=== PATIENT | female | born 1990 | race Caucasian/White ===

== ENCOUNTER → 2020-05-10 15:30 | Outpatient (CLI) | payer OTHER, SELFPAY ==
[2020-05-10 16:09] LABS: Add Manual Diff / Slide Review NO; Basophils Absolute Auto 0 /uL (0-100); Basophils Percent Auto 0.4 % (0-2); Eosinophils Absolute Auto 300 /uL (0-450); Eosinophils Percent Auto 2.4 % (2-4); Hematocrit 35.4 % (36-46); Hemoglobin 12.5 g/dL (12.0-16.0); Lymphocytes Absolute Auto 2000 /uL (1100-4500); Lymphocytes Percent Auto 18.8 % (25-40); Mean Corpuscular HGB Conc 35.4 % (30-36); Mean Corpuscular Hemoglobin 31.2 PG (26-34); Mean Corpuscular Volume 88.2 fL (80-100); Monocytes Absolute Auto 600 /uL (0-900); Monocytes Percent Auto 5.3 % (3-14); Neutrophils Absolute Auto 7900 /uL (1500-7000); Neutrophils Percent Auto 73.1 % (50-75); Platelet Count 304 X10^3/uL (150-400); Red Blood Cell Count 4.01 X10^6/uL (4.0-5.2); Red Cell Distribution Width 12.9 % (11.6-14.8); White Blood Cell Count 10.8 X10^3/uL (4.5-11.0)
[2020-05-10 17:24] LABS: Hepatitis B Surface Antigen NEGATIVE s/c (NEGATIVE)
[2020-05-10 17:39] LABS: HIV 1 & 2 Ab/Ag 4th Gen Combo NEGATIVE (NEGATIVE); Hep C Virus Ab w/Reflex Quant NEGATIVE s/c (NEGATIVE)
[2020-05-10 18:36] LABS: Appearance Urine UA CLEAR; Bilirubin Urine UA NEGATIVE (NEGATIVE); Color Urine UA YELLOW; Glucose Urine UA NEGATIVE (Negative); Ketones Urine UA NEGATIVE (NEGATIVE); Leukocyte Esterase Urine UA TRACE (NEGATIVE); Nitrite Urine UA NEGATIVE (Negative); Occult Blood Urine UA NEGATIVE (Negative); Protein Urine UA NEGATIVE (Negative); Specific Gravity Urine UA <=1.005 (1.000-1.035); Urobilinogen Urine UA 0.2 E.U./dL (0.2)
[2020-05-10 18:41] LABS: Bacteria Urine None Seen; RBC Urine None Seen (0-5/HPF)
[2020-05-10 18:44] LABS: Squamous Epithelial Cell Urine 10-30 /HPF (0-5/HPF); WBC Urine 5-10/HPF (0-5/HPF)
[2020-05-10 18:45] LABS: Amorphous Sediment Urine 2+
[2020-05-11 04:36] LABS: RPR Screen Non Reactive (Non Reactive)
[2020-05-11 08:41] LABS: Varicella IgG Antibody 3065 index (Immune >165)
== END ==
PROVIDERS: PCP Family Medicine; Referring Provider Family Medicine; Visit Provider Family Medicine
DX: Z34.01 Encounter for supervision of normal first pregnancy, first trimester (principal)
CPT/HCPCS: 36415; 80055; 81003; 81015; 86787; 86803; 86850; 86900; 86901; 87077; 87086; 87389

== ENCOUNTER → 2020-05-14 16:09 | Outpatient (CLI) | payer OTHER, SELFPAY ==
[2020-05-14 16:38] LABS: Appearance Urine UA SL CLOUDY; Bilirubin Urine UA NEGATIVE (NEGATIVE); Color Urine UA YELLOW; Glucose Urine UA NEGATIVE (Negative); Ketones Urine UA NEGATIVE (NEGATIVE); Leukocyte Esterase Urine UA 1+ (NEGATIVE); Nitrite Urine UA NEGATIVE (Negative); Occult Blood Urine UA NEGATIVE (Negative); Protein Urine UA NEGATIVE (Negative); Urobilinogen Urine UA 0.2 E.U./dL (0.2)
[2020-05-14 16:39] LABS: pH Urine UA 6.5 (4.5-8.0)
[2020-05-14 16:45] LABS: Bacteria Urine Moderate (10-30); Culture Indicated Urine Specimen Cultured; RBC Urine 0-1/HPF (0-5/HPF); Squamous Epithelial Cell Urine 1-5 /HPF (0-5/HPF); WBC Urine 5-10/HPF (0-5/HPF)
== END ==
PROVIDERS: PCP Family Medicine; Referring Provider Family Medicine; Visit Provider Family Medicine
DX: A49.9 Bacterial infection, unspecified (principal)
CPT/HCPCS: 81001; 87086

== ENCOUNTER → 2020-06-22 11:00 | Outpatient (CLI) | payer OTHER, SELFPAY ==
[2020-06-22 13:18] LABS: GTT (PREG) 1 Hour PP 50gm Dose 100 mg/dL (76-139)
== END ==
PROVIDERS: PCP Family Medicine; Referring Provider Family Medicine; Visit Provider Family Medicine
DX: O09.92 Supervision of high risk pregnancy, unspecified, second trimester (principal); O30.009 Twin pregnancy, unspecified number of placenta and unspecified number of amniotic sacs, unspecified trimester; R63.1 Polydipsia
CPT/HCPCS: 36415; 82950

== ENCOUNTER → 2020-07-20 14:13 | Outpatient (CLI) | payer OTHER, SELFPAY | PROVIDERS: PCP Family Medicine; Referring Provider Family Medicine; Visit Provider Family Medicine | DX: O30.009 Twin pregnancy, unspecified number of placenta and unspecified number of amniotic sacs, unspecified trimester (principal) | CPT/HCPCS: 36415; 81420 ==

== ENCOUNTER → 2020-09-03 10:38 | Outpatient (CLI) | payer OTHER, SELFPAY ==
[2020-09-03 13:30] LABS: GTT (PREG) 1 Hour PP 50gm Dose 107 mg/dL (76-139)
== END ==
PROVIDERS: PCP Family Medicine; Referring Provider Family Medicine; Visit Provider Family Medicine
DX: O30.009 Twin pregnancy, unspecified number of placenta and unspecified number of amniotic sacs, unspecified trimester (principal); Z3A.19 19 weeks gestation of pregnancy
CPT/HCPCS: 36415; 82950

== ENCOUNTER → 2020-09-20 09:57 | Outpatient (CLI) | payer OTHER, SELFPAY ==
[2020-09-20 10:24] LABS: COVID19 -Nasal RAPID Negative (Negative)
== END ==
PROVIDERS: PCP Family Medicine; Visit Provider Nurse Practitioner Family
DX: Z20.828 Contact with and (suspected) exposure to other viral communicable diseases (principal)
CPT/HCPCS: 87635

== ENCOUNTER 2020-09-20 12:28 | Outpatient (CLI) | payer OTHER, SELFPAY ==
--- NOTE | 2020-09-20 13:20 | PM.OBTRLD ---
Visit Information Visit Information Date of evaluation: 09/20/20 Reason for Evaluation: Yes non-stress test Comments/Additional reasons for admission: Patient sent to the center for abdominal discomfort. Sore throat runny nose congestion tested positive a few weeks ago to COVID. Patient's COVID test is negative. Patient evaluation and center showed no contractions which she was concerned about. heart tones of fetus A and fetus B looked normal and reactive. [facility] Medical History Anxiety (~2017) Broken hip (~2005) Chicken pox (~1995) Fractures On Accutane therapy Ovarian cyst (~2008) Pelvic fracture (~2008) Surgical History Anesthesia [place] teeth removed (~2010) Family History Father Hyperlipidemia Anxiety Mother Hypertension Stroke Migraine Grandfather Lung cancer Grandmother Diabetes mellitus Heart disease Grandmother Diabetes mellitus Grandfather No known health problems Family/Other Depression Suicide Family/Other Bipolar 1 disorder Family/Other Diabetes type 1, controlled Brother No known health problems Sister No known health problems Migraine Dense breast tissue on mammogram Social History marital status: household members: spouse lives independently: Yes pets and animals: Yes (X 1 Dog) education level: college 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 Sent the center for abdominal contractions discomfort pain. COVID test negative. Vital signs are stable. Baby a baby B heart be looks good. No contractions reassurance follow-up on for appointment.
== END 2020-09-20 13:35 | disposition home or self-care (01) ==
LOC: LABOR 13:10 → OB 09-21 09:08
PROVIDERS: PCP Family Medicine; Referring Provider Family Medicine; Visit Provider Family Medicine
DX: O30.043 Twin pregnancy, dichorionic/diamniotic, third trimester (principal); R10.84 Generalized abdominal pain; J02.9 Acute pharyngitis, unspecified; Z20.828 Contact with and (suspected) exposure to other viral communicable diseases; Z3A.28 28 weeks gestation of pregnancy
CPT/HCPCS: 59025; 87635; G0378; G0379

== ENCOUNTER → 2020-09-23 10:15 | Outpatient (CLI) | payer OTHER, SELFPAY ==
[2020-09-23 10:33] LABS: Hemoglobin 11.2 g/dL (12.0-16.0)
== END ==
PROVIDERS: PCP Family Medicine; Referring Provider Family Medicine; Visit Provider Family Medicine
DX: Z34.03 Encounter for supervision of normal first pregnancy, third trimester (principal); Z3A.29 29 weeks gestation of pregnancy
CPT/HCPCS: 36415; 85014; 85018; 86850

== ENCOUNTER 2020-10-16 20:36 | Outpatient (CLI) | payer OTHER, SELFPAY ==
[2020-10-16 20:48] LABS: RBC Urine None Seen (0-5/HPF)
[2020-10-16 20:49] LABS: Appearance Urine UA CLEAR; Bilirubin Urine UA NEGATIVE (NEGATIVE); Color Urine UA YELLOW; Glucose Urine UA NEGATIVE (Negative); Ketones Urine UA NEGATIVE (NEGATIVE); Leukocyte Esterase Urine UA 3+ (NEGATIVE); Nitrite Urine UA NEGATIVE (Negative); Occult Blood Urine UA NEGATIVE (Negative); Protein Urine UA NEGATIVE (Negative); Urobilinogen Urine UA 0.2 E.U./dL (0.2)
[2020-10-16 20:52] LABS: pH Urine UA 7.5 (4.5-8.0)
[2020-10-16 21:05] LABS: Bacteria Urine Many (>30); Squamous Epithelial Cell Urine 1-5 /HPF (0-5/HPF); WBC Urine 10-30/HPF (0-5/HPF)
[2020-10-16 21:06] LABS: Culture Indicated Urine Specimen Cultured
[2020-10-16 21:08] LABS: COVID19 -Nasal RAPID Negative (Negative)
[2020-10-16 21:21] LABS: Add Manual Diff / Slide Review NO; Basophils Absolute Auto 0 /uL (0-100); Basophils Percent Auto 0.3 % (0-2); Eosinophils Absolute Auto 200 /uL (0-450); Eosinophils Percent Auto 1.8 % (2-4); Hematocrit 30.8 % (36-46); Hemoglobin 10.7 g/dL (12.0-16.0); Lymphocytes Absolute Auto 2000 /uL (1100-4500); Lymphocytes Percent Auto 20.3 % (25-40); Mean Corpuscular HGB Conc 34.5 % (30-36); Mean Corpuscular Hemoglobin 30.3 PG (26-34); Mean Corpuscular Volume 87.7 fL (80-100); Monocytes Absolute Auto 1000 /uL (0-900); Monocytes Percent Auto 9.9 % (3-14); Neutrophils Absolute Auto 6800 /uL (1500-7000); Neutrophils Percent Auto 67.7 % (50-75); Platelet Count 286 X10^3/uL (150-400); Red Blood Cell Count 3.51 X10^6/uL (4.0-5.2); Red Cell Distribution Width 12.6 % (11.6-14.8); White Blood Cell Count 10.1 X10^3/uL (4.5-11.0)
[2020-10-16 21:30] LABS: Aspartate Aminotransferase 27 IU/L (14-36); BUN Creatinine Ratio 8.9 (6-22); Blood Urea Nitrogen 4 mg/dL (7-17); Estimated Glomerular Filt Rate > 60.0 mL/min (>60); Uric Acid 3.2 mg/dL (2.5-6.2)
--- NOTE | 2020-10-16 21:38 | P.TNLD_ITS ---
Visit Information Visit Information Date of evaluation: 10/16/20 Primary OB Provider: Jessica Patel On-call OB Provider: Teresa Angel Reason for Evaluation: Yes other Comments/Additional reasons for admission: dizziness Vital Signs Vital Signs: BP 120/77, P76, T 35.9 PFSH Medical History Anxiety (~2017) Broken hip (~2005) Chicken pox (~1995) Fractures On Accutane therapy Ovarian cyst (~2008) Pelvic fracture (~2008) Surgical History Anesthesia [place] teeth removed (~2010) Family History Father Hyperlipidemia Anxiety Mother Hypertension Stroke Migraine Grandfather Lung cancer Grandmother Diabetes mellitus Heart disease Grandmother Diabetes mellitus Grandfather No known health problems Family/Other Depression Suicide Family/Other Bipolar 1 disorder Family/Other Diabetes type 1, controlled Brother No known health problems Sister No known health problems Migraine Dense breast tissue on mammogram Social History marital status: household members: spouse lives independently: Yes pets and animals: Yes (X 1 Dog) education level: college 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 GFM, no headache, scotomata. No fevers. No significant SOB, she does c/o diarrhea. Objective Labs Result Diagrams: 10/16/20 21:12 10/16/20 21:12 Labs: Laboratory Results - last 24 hr 10/16/20 10/16/20 10/16/20 20:30 20:30 21:12 WBC 10.1 RBC 3.51 L Hgb 10.7 L Hct 30.8 L MCV 87.7 MCH 30.3 MCHC 34.5 RDW 12.6 Plt Count 286 Neut % (Auto) 67.7 Lymph % (Auto) 20.3 L [place] % (Auto) 9.9 Eos % (Auto) 1.8 L Baso % (Auto) 0.3 Neut # (Auto) 6800 Lymph # (Auto) 2000 [place] # (Auto) 1000 H Eos # (Auto) 200 Baso # (Auto) 0 BUN Creatinine Estimated GFR BUN/Creatinine Ratio Uric Acid AST Urine Color Yellow Urine Appearance Clear Urine pH 7.5 Ur Specific [place] 1.010 Urine Protein Negative Urine Glucose (UA) Negative Urine Ketones Negative Urine Occult Blood Negative Urine Nitrate Negative Urine Bilirubin Negative Urine Urobilinogen 0.2 Ur Leukocyte Esterase 3+ H Urine RBC None seen Urine WBC 10-30/hpf H Ur Squamous Epith Cells 1-5 /hpf Urine Bacteria Many (>30) H Ur Culture Indicated? Specimen cultured SARS-CoV-2 (PCR) Negative 10/16/20 21:12 WBC RBC Hgb Hct MCV MCH MCHC RDW Plt Count Neut % (Auto) Lymph % (Auto) [place] % (Auto) Eos % (Auto) Baso % (Auto) Neut # (Auto) Lymph # (Auto) [place] # (Auto) Eos # (Auto) Baso # (Auto) BUN 4 L Creatinine 0.45 L Estimated GFR > 60.0 BUN/Creatinine Ratio 8.9 Uric Acid 3.2 AST 27 Urine Color Urine Appearance Urine pH Ur Specific [place] Urine Protein Urine Glucose (UA) Urine Ketones Urine Occult Blood Urine Nitrate Urine Bilirubin Urine Urobilinogen Ur Leukocyte Esterase Urine RBC Urine WBC Ur Squamous Epith Cells Urine Bacteria Ur Culture Indicated? SARS-CoV-2 (PCR) Evaluation Evaluation Baseline heart rate: 140 (twin B 150) Variability: Moderate (11-25) (both) monitor accelerations: Present (both) monitor decelerations: Absent (both) Contraction Frequency (minutes): 0 Category of Tracing: Reactive Status: Category l Laboratory results: Laboratory Tests 10/16/20 10/16/20 10/16/20 20:30 20:30 21:12 WBC 10.1 RBC 3.51 L Hgb 10.7 L Hct 30.8 L MCV 87.7 MCH 30.3 MCHC 34.5 RDW 12.6 Plt Count 286 Neut % (Auto) 67.7 Lymph % (Auto) 20.3 L [place] % (Auto) 9.9 Eos % (Auto) 1.8 L Baso % (Auto) 0.3 Neut # (Auto) 6800 Lymph # (Auto) 2000 [place] # (Auto) 1000 H Eos # (Auto) 200 Baso # (Auto) 0 BUN Creatinine Estimated GFR BUN/Creatinine Ratio Uric Acid AST Urine Color Yellow Urine Appearance Clear Urine pH 7.5 Ur Specific [place] 1.010 Urine Protein Negative Urine Glucose (UA) Negative Urine Ketones Negative Urine Occult Blood Negative Urine Nitrate Negative Urine Bilirubin Negative Urine Urobilinogen 0.2 Ur Leukocyte Esterase 3+ H Urine RBC None seen Urine WBC 10-30/hpf H Ur Squamous Epith Cells 1-5 /hpf Urine Bacteria Many (>30) H Ur Culture Indicated? Specimen cultured SARS-CoV-2 (PCR) Negative 10/16/20 21:12 WBC RBC Hgb Hct MCV MCH MCHC RDW Plt Count Neut % (Auto) Lymph % (Auto) [place] % (Auto) Eos % (Auto) Baso % (Auto) Neut # (Auto) Lymph # (Auto) [place] # (Auto) Eos # (Auto) Baso # (Auto) BUN 4 L Creatinine 0.45 L Estimated GFR > 60.0 BUN/Creatinine Ratio 8.9 Uric Acid 3.2 AST 27 Urine Color Urine Appearance Urine pH Ur Specific [place] Urine Protein Urine Glucose (UA) Urine Ketones Urine Occult Blood Urine Nitrate Urine Bilirubin Urine Urobilinogen Ur Leukocyte Esterase Urine RBC Urine WBC Ur Squamous Epith Cells Urine Bacteria Ur Culture Indicated? SARS-CoV-2 (PCR) Diagnosis, Plan/Disposition Final Diagnosis (1) Dizziness of unknown etiology: Status: Acute (2) 33 weeks gestation of : Status: Acute (3) Twin : Status: Acute Plan/Disposition Plan: Some anemia, urine culture pending but asymptomatic so will wait for culture, negative Covid, negative PIH labs. Unclear etiology of dizziness. Pt to push fluids, keep appointment with Dr. Patel OB Disposition: home
== END 2020-10-16 21:45 | disposition home or self-care (01) ==
LOC: OB 10-19 07:34
PROVIDERS: PCP Family Medicine; Referring Provider Specialist; Visit Provider Specialist
DX: O30.043 Twin pregnancy, dichorionic/diamniotic, third trimester (principal); R42 Dizziness and giddiness; R19.7 Diarrhea, unspecified; Z3A.32 32 weeks gestation of pregnancy; Z20.822 Contact with and (suspected) exposure to COVID-19
CPT/HCPCS: 36415; 59025; 81001; 84450; 84550; 85025; 87086; 87635; C9803; G0378; G0379

== ENCOUNTER 2020-10-20 12:00 | Outpatient (RCR) | payer OTHER, SELFPAY ==
--- NOTE | 2020-05-18 18:04 | PT.OIE ---
Current Diagnoses Encounter for supervision of normal , unspecified, unspecified trimester (05/13/20) Personal history of (healed) traumatic fracture (05/13/20) Past Medical History (Last Updated 05/05/20 @ 12:04 by Myra Malagon RN) Anxiety (Chronic ~2017) Broken hip (Resolved ~2005) Chicken pox (Resolved ~1995) Fractures (Resolved) On Accutane therapy (Resolved) Ovarian cyst (Resolved ~2008) Pelvic fracture (Resolved ~2008) Past Surgical History (Last Updated 05/05/20 @ 11:51 by Myra Malagon RN) Anesthesia (Resolved) Slovan teeth removed (Resolved ~2010) Visit Care Team Role Provider Type Pedrito Narvaez DO Primary Care Provider Non-Staff Specialty: [facility] Address: [address] [place] [address], [phone] Email: Jessica Patel MD Attending Provider Physician Referring Provider Specialty: [facility] Address: [address] [place] [address], [id number] Email: [email or web address] Physical Therapy Initial Evaluation PT-OP-A Visit Information Start: 05/13/20 12:52 Freq: Status: Active Protocol: Document 05/13/20 17:31 [facility] (Rec: 05/13/20 17:32 [facility] [id number]) Out-Patient Physical Therapy Visit Information Visit Information Visit Type Initial Evaluation Visit Start Time 15:15 Visit Stop Time 16:00 Total Visit Minutes 45 Visit Number 1 Evaluation Information Evaluation Date 05/13/20 PT-OP-B Current Condition Start: 05/13/20 12:52 Freq: Status: Active Protocol: Document 05/13/20 15:17 [facility] (Rec: 05/13/20 15:25 [facility] [id number]) Current Condition History of Current Condition Onset Date 15 years old History of Current Condition Diana reports her symptoms began at 15 years old 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 At 19 years old she was in college running track, she was having pain in the inner thigh pelvis region. She began having so much pain with running she would limp. MRI showed a fracture in her right side pelvis. Since the hip fracture she has had stiffness. She is now with twins and is noticing that both hips are starting to hurt and she is experiencing pain into her gluteal region. She will be 10 weeks on Sunday. Diana reports she is walking 2-3 times per week for exercise and notes some increase in tightness in her back with walking now. Her pain is rated 2/10 but she really wants to do PT as a prevention for increased pain during her . Treatment Goals Patient/Caregiver Goals pt's goals include preventing pain and instability with her and learning stretching Current Functional Impairments (Reported) Functional Limitations- ADL's Pt is perfoming all usual ADL' s PT-OP-C Subjective Start: 05/13/20 12:52 Freq: Status: Active Protocol: Document 05/13/20 15:15 [facility] (Rec: 05/18/20 17:31 [facility] [id number]) OP-PT Pain Assessment Pain Assessment Grid Paper Pain Assessment Grid Completed Yes Location low back and hips Intensity 2 Scale Used Numeric (0 - 10) PT-OP-J Posture/Palpation/Skin Start: 05/13/20 12:52 Freq: Status: Active Protocol: Document 05/13/20 15:15 [facility] (Rec: 05/18/20 08:54 [facility] [id number]) Posture Evaluation Comments Posture Comments increased lordosis in standing with visable hypertrophy of the lumbar paraspinals, pelvis anteriorly rotated bilaterally Palpation Assessment Location ASIS B Palpation Location ASIS BILATERALLY Palpation Findings Soft Tissue Tightness, Tenderness Palpation Details tenderness R>L ASIS and the quadriceps attachment proximally, tightness in the quadriceps muscle PT-OP-K Range of Motion Start: 05/13/20 12:52 Freq: Status: Active Protocol: Document 05/13/20 15:15 [facility] (Rec: 05/18/20 08:54 [facility] [id number]) Lumbar Spine Range of Motion Lumbar Spine Active Testing Position Standing Flexion 40 Lateral Flexion Left 10 Lateral Flexion Right 10 ROM Limitations Soft Tissue Tightness,Pain Comments lumbar spine ROM limited into flexion at 40 degrees Hip Goniometric Range of Motion Hip Right Testing Position Supine Straight Leg Raise 45 Extension 5 Internal Rotation 10 Hip ROM Limitations Hip ROM Limitations Soft Tissue Tightness Comments iliospoas tightness on the right, + juliano test position on the right, limited hip extension on the right vs the left, pain with hip IR on the right. PT-OP-M Strength Start: 05/13/20 12:52 Freq: Status: Active Protocol: Document 05/18/20 17:31 [facility] (Rec: 05/18/20 17:33 [facility] [id number]) Trunk Strength Trunk Manual Muscle Testing Core Stabilization + ASLR test on the right with SI joint on the left unlocking , decreased ability to contract the Transverse abdominals and pelvic floor with external pelvic floor assessment PT-OP-Q Treatments Start: 05/13/20 12:52 Freq: Status: Active Protocol: Document 05/13/20 17:32 [facility] (Rec: 05/13/20 17:34 [facility] [id number]) Therapeutic Exercises Sidelying Exercises pelvic floor activation Sidelying Exercise Name pelvic floor activation Comments pt to work up to 10 second hold time and 10 reps Other Exercises 1 Other Exercise Name standing warrior 1 Comments for stretching out the hip flexor quadruped TA activation Other Exercise Name quadruped TA activation Reps/Minutes x 10 quadruped sidebend Other Exercise Name quadruped sidebned quadruped cat cow Other Exercise Name quadruped cat/cow Reps/Minutes x 10 reps PT-OP-T Assessment and Plan Start: 05/13/20 12:52 Freq: Status: Active Protocol: Document 05/13/20 15:15 [facility] (Rec: 05/18/20 17:36 [facility] [id number]) Physical Therapy Assessment Rehab Potential Rehabilitation Potential Excellent Evaluation Complexity Number of Personal Factors/Comorbidities 0 Number of Body Systems Impaired 1-2 Clinical Presentation at Evaluation Stable Impairments Impairments Activity Tolerance,Pain,ROM, Soft Tissue Mobility,Strength Goals Four Impairment Decreased strength of the Transverse abdominals and pelvic floor Short Term Goal (STG) Diana is able to sustain a pelvic floor and transverse abdominal contraction for 10 second hold in sidelying. STG Duration 5 weeks Three Impairment Tightness in the lumbar paraspinals with a increase in lumbar lordisis Administration Clerk Goal (LTG) Diana is able to improve her lumbar flexion and decrease the amount of lordosis she goes into with her with specific exercises and manual therapy techniques to reduce anterior pelvic tilt. LTG Duration 8 weeks + Two Impairment SI instability with and history of a pelvic fracture in 2008 Short Term Goal (STG) Diana is educated on both Transverse abdominal stabilization and pelvic floor stabilization to improve support to her SI and pelvis during pregnacy STG Duration 6 weeks One Impairment Low back pain rated 2/10 Short Term Goal (STG) Diana is educated in stretches exercises for her low back that she can do throughout her Administration Clerk Goal (LTG) Diana is able to continue walking 2-3 miles for exercise during her LTG Duration 8 weeks + Assessment Summary Assessment Diana is a 30 year old female 10 weeks with twins. She has a history of a hip fracture in 2005 and a pelvic fracture in 2008 from track injuries. She would like to begin PT as she can feel some tigntness in her low back and hips already with her and she wants to prevent undue strain on her pelvis. At this point in time her pain is rated 2/10. With examination today she is standing with a increase in her lumbar lordosis with shortening of her lumbar paraspinal muscles. She has iliopsoas tightness right greater than left and is tender to palpation at the ASIS bilaterally. Her SI joint does unlock on the left side with right Active straight leg raise test. It is very difficult for Diana to activate her transverse abdominal muscles and pelvic floor which was palpated externally today. Diana has decreased hip IR and hip extension on the right. Treatment will focus on lengthening the shortened paraspinal muscles with lumbar stretches and manual soft tissue techniques. She will be given stabilization exercises for the transverse abdominal muscles and pelvic floor for improved support of her SI joint during . She may also benefit from a SI belt during her for increased support. We will also include hip stretches to decrease the anterior tilt of her pelvis. Body mechanics training and postural modifications will also be made. Diana is a good candidate for PT. Physical Therapy Plan Frequency and Duration Frequency of Treatment 1x/Week Duration of Treatment 8 Plan of Care Start Date 05/13/20 Plan of Care End Date 07/08/20 Therapeutic Interventions Therapeutic Interventions Home Exercise Program,Manual Therapy,Neuromuscular Re- education,Patient/Caregiver Education,Self-Care/Home Management,Soft Tissue Mobilization,Therapeutic Exercises Next Visit Focus/Plan Next Note Type Treatment Note Next Visit Plan Review exercises given at today's treatment including TA and pelvic floor isolation, lumbar and iliopsoas stretches , manual hip flexor release, STM for the shortened lumbar paraspinal muscles.
--- NOTE | 2020-05-18 18:06 | PT.OPPOC ---
Physical, Occupational & Speech Therapy At [facility] Current Diagnoses Encounter for supervision of normal , unspecified, unspecified trimester (05/13/20) Personal history of (healed) traumatic fracture (05/13/20) Visit Care Team Role Provider Type Pedrito Narvaez DO Primary Care Provider Non-Staff Specialty: Family Practice Address: [address] [place] [address], [phone] Email: Jessica Patel MD Attending Provider Physician Referring Provider Specialty: Family Practice Address: [address] [place] [address], [facility], [place], [address] Email: [email or web address] Plan Of Care PT-OP-T Assessment and Plan Start: 05/13/20 12:52 Freq: Status: Active Protocol: Document 05/13/20 15:15 [facility] (Rec: 05/18/20 17:36 [facility] [id number]) Physical Therapy Assessment Rehab Potential Rehabilitation Potential Excellent Evaluation Complexity Number of Personal Factors/Comorbidities 0 Number of Body Systems Impaired 1-2 Clinical Presentation at Evaluation Stable Impairments Impairments Activity Tolerance,Pain,ROM, Soft Tissue Mobility,Strength Goals Four Impairment Decreased strength of the Transverse abdominals and pelvic floor Short Term Goal (STG) Diana is able to sustain a pelvic floor and transverse abdominal contraction for 10 second hold in sidelying. STG Duration 5 weeks Three Impairment Tightness in the lumbar paraspinals with a increase in lumbar lordosis Funeral Location Manager Goal (LTG) Diana is able to improve her lumbar flexion and decrease the amount of lordosis she goes into with her with specific exercises and manual therapy techniques to reduce anterior pelvic tilt. LTG Duration 8 weeks + Two Impairment SI instability with and history of a pelvic fracture in 2008 Short Term Goal (STG) Diana is educated on both Transverse abdominal stabilization and pelvic floor stabilization to improve support to her SI and pelvis during STG Duration 6 weeks One Impairment Low back pain rated 2/10 Short Term Goal (STG) Diana is educated in stretches exercises for her low back that she can do throughout her [facility] Goal (LTG) Diana is able to continue walking 2-3 miles for exercise during her LTG Duration 8 weeks + Assessment Summary Assessment Diana is a 30 year old female 10 weeks with twins. She has a history of a hip fracture in 2005 and a pelvic fracture in 2008 from track injuries. She would like to begin PT as she can feel some tightness in her low back and hips already with her and she wants to prevent undue strain on her pelvis. At this point in time her pain is rated 2/10. With examination today she is standing with a increase in her lumbar lordosis with shortening of her lumbar paraspinal muscles. She has iliopsoas tightness right greater than left and is tender to palpation at the ASIS bilaterally. Her SI joint does unlock on the left side with right Active straight leg raise test. It is very difficult for Diana to activate her transverse abdominal muscles and pelvic floor which was palpated externally today. Diana has decreased hip IR and hip extension on the right. Treatment will focus on lengthening the shortened paraspinal muscles with lumbar stretches and manual soft tissue techniques. She will be given stabilization exercises for the transverse abdominal muscles and pelvic floor for improved support of her SI joint during . She may also benefit from a SI belt during her for increased support. We will also include hip stretches to decrease the anterior tilt of her pelvis. Body mechanics training and postural modifications will also be made. Diana is a good candidate for PT. Physical Therapy Plan Frequency and Duration Frequency of Treatment 1x/Week Duration of Treatment 8 Plan of Care Start Date 05/13/20 Plan of Care End Date 07/08/20 Therapeutic Interventions Therapeutic Interventions Home Exercise Program,Manual Therapy,Neuromuscular Re- education,Patient/Caregiver Education,Self-Care/Home Management,Soft Tissue Mobilization,Therapeutic Exercises Next Visit Focus/Plan Next Note Type Treatment Note Next Visit Plan Review exercises given at today's treatment including TA and pelvic floor isolation, lumbar and iliopsoas stretches , manual hip flexor release, STM for the shortened lumbar paraspinal muscles. Plan of Care Dates Plan of Care Start Date 05/13/20 Plan of Care End Date 07/08/20 Electronically Signed by: Priya Springer, PT 05/18/20 0847 Please Sign and Return: I have reviewed this Plan of Care and certify that the skilled therapy services above are required to meet the patient?s needs. Physician Signature Date Printed Name and Credentials Clinical Instructor Signature Printed Name and Credentials
--- NOTE | 2020-05-20 13:00 | PT.OTN ---
Current Diagnoses Encounter for supervision of normal , unspecified, unspecified trimester (05/20/20) Personal history of (healed) traumatic fracture (05/20/20) Physical Therapy Treatment Note PT-OP-A Visit Information Start: 05/13/20 12:52 Freq: Status: Active Protocol: Document 05/20/20 12:16 SP (Rec: 05/20/20 13:03 SP [id number]) Out-Patient Physical Therapy Visit Information Visit Information Visit Type Treatment Note Visit Start Time 12:16 Visit Stop Time 13:00 Total Visit Minutes 44 Visit Number 2 Number of COMMUNICABLE DISEASE SPECIALIST Visits 1 PT-OP-B Current Condition Start: 05/13/20 12:52 Freq: Status: Active Protocol: Document 05/13/20 15:17 [facility] (Rec: 05/13/20 15:25 [facility] [id number]) Current Condition History of Current Condition Onset Date 15 years old History of Current Condition Diana reports her symptoms began at 15 years old running track [employer], She reports having a freak accident and broke left hip where the growth plate came together She has had residual stiffness and pain in her left hip. At 19 years old she was in college running track, she was having pain in the inner thigh pelvis region. She began having so much pain with running she would limp. MFR showed a fracture in her right side. Since the hip fracture she has had stiffness. SHe is now with twins and is noticing that both hips are starting to hurt and she is experiencing pain into her gluteal region. She will be 10 weeks on Sunday. Diana reports she is walking 2-3 times per week for exercise and notes some increase in tightness in her back with walking now. Her pain is rated 2/10 but she really wants to do PT as a prevention for increased pain during her . Treatment Goals Patient/Caregiver Goals pt's goals include preventing pain and instability with her and learning stretching Current Functional Impairments (Reported) Functional Limitations- ADL's Pt is perfoming all usual ADL' s PT-OP-C Subjective Start: 05/13/20 12:52 Freq: Status: Active Protocol: Document 05/13/20 15:15 [facility] (Rec: 05/18/20 17:31 [facility] [id number]) OP-PT Pain Assessment Pain Assessment Grid Paper Pain Assessment Grid Completed Yes Location low back and hips Intensity 2 Scale Used Numeric (0 - 10) PT-OP-J Posture/Palpation/Skin Start: 05/13/20 12:52 Freq: Status: Active Protocol: Document 05/13/20 15:15 [facility] (Rec: 05/18/20 08:54 [facility] [id number]) Posture Evaluation Comments Posture Comments increased lordosis in standing with visable hypertrophy of the lumbar paraspinals, pelvis anteriorly rotated bilaterally Palpation Assessment Location ASIS B Palpation Location ASIS BILATERALLY Palpation Findings Soft Tissue Tightness, Tenderness Palpation Details tenderness R>L ASIS and the quadriceps attachment promimally, tightness in the quadriceps muscle PT-OP-K Range of Motion Start: 05/13/20 12:52 Freq: Status: Active Protocol: Document 05/13/20 15:15 [facility] (Rec: 05/18/20 08:54 [facility] [id number]) Lumbar Spine Range of Motion Lumbar Spine Active Testing Position Standing Flexion 40 Lateral Flexion Left 10 Lateral Flexion Right 10 ROM Limitations Soft Tissue Tightness,Pain Comments lumbar spine ROM limited into flexion at 40 degrees Hip Goniometric Range of Motion Hip Right Testing Position Supine Straight Leg Raise 45 Extension 5 Internal Rotation 10 Hip ROM Limitations Hip ROM Limitations Soft Tissue Tightness Comments iliospoas tightness on the right, + juliano test position on the right, limited hip extension on the right vs the left, pain with hip IR on the right. PT-OP-M Strength Start: 05/13/20 12:52 Freq: Status: Active Protocol: Document 05/18/20 17:31 [facility] (Rec: 05/18/20 17:33 [facility] [id number]) Trunk Strength Trunk Manual Muscle Testing Core Stabilization + ASLR test on the right with SI joint on the left unlocking , decreased ability to contract the Transverse abdominals and pelvic floor with external pelvic floor assessment PT-OP-Q Treatments Start: 05/13/20 12:52 Freq: Status: Active Protocol: Document 05/20/20 12:16 SP (Rec: 05/20/20 13:03 SP [id number]) Therapeutic Exercises Supine Exercises TA trng and pelvic tilt Comments cued proper form Prone Exercises over SB multifidus activation Reps/Minutes 2 sec knee lift L, 5 sec R before tires Comments unable on quadruped or with use of foam roller Sidelying Exercises pelvic floor activation Sidelying Exercise Name pelvic floor activation Comments pt to work up to 10 second hold time and 10 reps Sitting Exercises AP/ lateral pelvic tilts Sitting Exercise Name core facilitation Reps/Minutes x10 each Comments cued small range Other Exercises quadruped TA activation Other Exercise Name quadruped TA activation Reps/Minutes x 10 quadruped sidebend Other Exercise Name quadruped sidebned Comments tail wag quadruped cat cow Other Exercise Name quadruped cat/cow Reps/Minutes x 10 reps PT-OP-T Assessment and Plan Start: 05/13/20 12:52 Freq: Status: Active Protocol: Document 05/20/20 12:16 SP (Rec: 05/20/20 13:03 SP [id number]) Physical Therapy Assessment Goals Four Impairment Decreased strength of the Transverse abdominals and pelvic floor Short Term Goal (STG) Diana is able to sustain a pelvic floor and transverse abdominal contraction for 10 second hold in sidelying. STG Duration 5 weeks Three Impairment Tightness in the lumbar paraspinals with a increase in lumbar lordisis [facility]cf Goal (LTG) Diana is able to improve her lumbar flexion and decrease the amount of lordosis she goes into with her with specific exercises and manual therapy techniques to reduce anterior pelvic tilt. LTG Duration 8 weeks + Two Impairment SI instability with and history of a pelvic fracture in 2008 Short Term Goal (STG) Diana is educated on both Transverse abdominal stabilization and pelvic floor stabilization to improve support to her SI and pelvis during pregnacy STG Duration 6 weeks One Impairment Low back pain rated 2/10 Short Term Goal (STG) Diana is educated in stretches exercises for her low back that she can do throughout her Gas Pit Worker Goal (LTG) Diana is able to continue walking 2-3 miles for exercise during her LTG Duration 8 weeks + Assessment Summary Assessment Tx focused on HEP proper form and TA/ pelvic floor facilitation then added quadruped multifidus and use of SB has at home. Pt challenged on L mulitifidus but with support of SB improved focus and compenstations of R hip abd deminished. Wow this is hard work, helpful. Physical Therapy Plan Frequency and Duration Frequency of Treatment 1x/Week Duration of Treatment 8 Plan of Care Start Date 05/13/20 Plan of Care End Date 07/08/20 Therapeutic Interventions Therapeutic Interventions Home Exercise Program,Manual Therapy,Neuromuscular Re- education,Patient/Caregiver Education,Self-Care/Home Management,Soft Tissue Mobilization,Therapeutic Exercises Next Visit Focus/Plan Next Note Type Treatment Note Next Visit Plan Assess response to last tx: HEP Review and added pelvis tilt and wag on SB and multifidus onver ball. Continue TA and pelvic floor isolation, lumbar and iliopsoas stretches, manual hip flexor release, STM for the shortened lumbar paraspinal muscles.
--- NOTE | 2020-05-26 13:45 | PT.OTN ---
Current Diagnoses Encounter for supervision of normal , unspecified, unspecified trimester (05/26/20) Personal history of (healed) traumatic fracture (05/26/20) Physical Therapy Treatment Note PT-OP-A Visit Information Start: 05/13/20 12:52 Freq: Status: Active Protocol: Document 05/26/20 13:40 [facility] (Rec: 05/26/20 13:45 [facility] [email or web address]) Out-Patient Physical Therapy Visit Information Visit Information Visit Type Treatment Note Visit Start Time 12:00 Visit Stop Time 12:45 Total Visit Minutes 45 Visit Number 3 Number of RIG MECHANIC Visits 0 PT-OP-B Current Condition Start: 05/13/20 12:52 Freq: Status: Active Protocol: Document 05/13/20 15:17 [facility] (Rec: 05/13/20 15:25 [facility] [id number]) Current Condition History of Current Condition Onset Date 15 years old History of Current Condition Diana reports her symptoms began at 15 years old running track [facility], She reports having a freak accident and broke left hip where the growth plate came together She has had residual stiffness and pain in her left hip. At 19 years old she was in college running track, she was having pain in the inner thigh pelvis region. She began having so much pain with running she would limp. MFR showed a fracture in her right side. Since the hip fracture she has had stiffness. SHe is now with twins and is noticing that both hips are starting to hurt and she is experiencing pain into her gluteal region. She will be 10 weeks on Sunday. Diana reports she is walking 2-3 times per week for exercise and notes some increase in tightness in her back with walking now. Her pain is rated 2/10 but she really wants to do PT as a prevention for increased pain during her . Treatment Goals Patient/Caregiver Goals pt's goals include preventing pain and instability with her and learning stretching Current Functional Impairments (Reported) Functional Limitations- ADL's Pt is perfoming all usual ADL' s PT-OP-C Subjective Start: 05/13/20 12:52 Freq: Status: Active Protocol: Document 05/26/20 13:40 [facility] (Rec: 05/26/20 13:45 [facility] [email or web address]) OP-PT Subjective Patient Comments Patient Comments pt reports she has felt tightness in bilateral hips the past few days, quadraped sidebends does the best to help stretch this out PT-OP-J Posture/Palpation/Skin Start: 05/13/20 12:52 Freq: Status: Active Protocol: Document 05/13/20 15:15 [facility] (Rec: 05/18/20 08:54 [facility] [email or web address]) Posture Evaluation Comments Posture Comments increased lordosis in standing with visable hypertrophy of the lumbar paraspinals, pelvis anteriorly rotated bilaterally Palpation Assessment Location ASIS B Palpation Location ASIS BILATERALLY Palpation Findings Soft Tissue Tightness, Tenderness Palpation Details tenderness R>L ASIS and the quadriceps attachment promimally, tightness in the quadriceps muscle PT-OP-K Range of Motion Start: 05/13/20 12:52 Freq: Status: Active Protocol: Document 05/13/20 15:15 [facility] (Rec: 05/18/20 08:54 [facility] [email or web address]) Lumbar Spine Range of Motion Lumbar Spine Active Testing Position Standing Flexion 40 Lateral Flexion Left 10 Lateral Flexion Right 10 ROM Limitations Soft Tissue Tightness,Pain Comments lumbar spine ROM limited into flexion at 40 degrees Hip Goniometric Range of Motion Hip Right Testing Position Supine Straight Leg Raise 45 Extension 5 Internal Rotation 10 Hip ROM Limitations Hip ROM Limitations Soft Tissue Tightness Comments iliospoas tightness on the right, + juliano test position on the right, limited hip extension on the right vs the left, pain with hip IR on the right. PT-OP-M Strength Start: 05/13/20 12:52 Freq: Status: Active Protocol: Document 05/18/20 17:31 [facility] (Rec: 05/18/20 17:33 [facility] [id number]) Trunk Strength Trunk Manual Muscle Testing Core Stabilization + ASLR test on the right with SI joint on the left unlocking , decreased ability to contract the Transverse abdominals and pelvic floor with external pelvic floor assessment PT-OP-Q Treatments Start: 05/13/20 12:52 Freq: Status: Active Protocol: Document 05/26/20 13:40 [facility] (Rec: 05/26/20 13:45 [facility] [email or web address]) Therapeutic Exercises Supine Exercises piriformis stretch Supine Exercise Name piriformis stretch Comments pt okay on her back at this point and could feel the stretch TA trng and pelvic tilt Comments cued proper form Other Exercises quadruped TA activation Other Exercise Name quadruped TA activation Reps/Minutes x 10 quadruped sidebend Other Exercise Name quadruped sidebned Comments tail wag quadruped cat cow Other Exercise Name quadruped cat/cow Reps/Minutes x 10 reps Manual Therapy Treatment Soft Tissue Mobilization lumbar paraspinals Body Location lumbar paraspinal muscles Body Position Prone Comments prone over body pillow, STM/MFR to the lumbar paraspinals. PT tight in her thoracic spine as well so adding in thoracic quadruped rotation may be helpful for her. PT-OP-T Assessment and Plan Start: 05/13/20 12:52 Freq: Status: Active Protocol: Document 05/26/20 13:40 [facility] (Rec: 05/26/20 13:45 [facility] [email or web address]) Physical Therapy Assessment Assessment Summary Assessment Trial of TA with klever today however this placed strain on her low back, I worked today on lengthening the paraspinal muscles and added in a piriformis stretch. We also discussed the better binder for post and further along in her Physical Therapy Plan Frequency and Duration Frequency of Treatment 1x/Week Duration of Treatment 8 Plan of Care Start Date 05/13/20 Plan of Care End Date 07/08/20
--- NOTE | 2020-06-03 15:12 | PT.OTN ---
Current Diagnoses Encounter for supervision of normal , unspecified, unspecified trimester (06/03/20) Personal history of (healed) traumatic fracture (06/03/20) Physical Therapy Treatment Note PT-OP-A Visit Information Start: 05/13/20 12:52 Freq: Status: Active Protocol: Document 06/03/20 09:00 [facility] (Rec: 06/03/20 09:14 [facility] [id number]) Out-Patient Physical Therapy Visit Information Visit Information Visit Type Treatment Note Visit Start Time 09:00 Visit Stop Time 09:45 Total Visit Minutes 45 Visit Number 2 Evaluation Information Evaluation Date 05/13/20 PT-OP-B Current Condition Start: 05/13/20 12:52 Freq: Status: Active Protocol: Document 05/13/20 15:17 [facility] (Rec: 05/13/20 15:25 [facility] [id number]) Current Condition History of Current Condition Onset Date 15 years old History of Current Condition Diana reports her symptoms began at 15 years old 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 At 19 years old she was in college running track, she was having pain in the inner thigh pelvis region. She began having so much pain with running she would limp. MFR showed a fracture in her right side. Since the hip fracture she has had stiffness. SHe is now with twins and is noticing that both hips are starting to hurt and she is experiencing pain into her gluteal region. She will be 10 weeks on Sunday. Diana reports she is walking 2-3 times per week for exercise and notes some increase in tightness in her back with walking now. Her pain is rated 2/10 but she really wants to do PT as a prevention for increased pain during her . Treatment Goals Patient/Caregiver Goals pt's goals include preventing pain and instability with her and learning stretching Current Functional Impairments (Reported) Functional Limitations- ADL's Pt is perfoming all usual ADL' s PT-OP-C Subjective Start: 05/13/20 12:52 Freq: Status: Active Protocol: Document 06/03/20 09:00 [facility] (Rec: 06/03/20 09:14 [facility] [id number]) OP-PT Subjective Patient Comments Patient Comments not feeling any hip pain this week. still feeling symptoms left lower back and SI region. PT-OP-J Posture/Palpation/Skin Start: 05/13/20 12:52 Freq: Status: Active Protocol: Document 05/13/20 15:15 [facility] (Rec: 05/18/20 08:54 [facility] [email or web address]) Posture Evaluation Comments Posture Comments increased lordosis in standing with visable hypertrophy of the lumbar paraspinals, pelvis anteriorly rotated bilaterally Palpation Assessment Location ASIS B Palpation Location ASIS BILATERALLY Palpation Findings Soft Tissue Tightness, Tenderness Palpation Details tenderness R>L ASIS and the quadriceps attachment promimally, tightness in the quadriceps muscle PT-OP-K Range of Motion Start: 05/13/20 12:52 Freq: Status: Active Protocol: Document 05/13/20 15:15 [facility] (Rec: 05/18/20 08:54 [facility] [email or web address]) Lumbar Spine Range of Motion Lumbar Spine Active Testing Position Standing Flexion 40 Lateral Flexion Left 10 Lateral Flexion Right 10 ROM Limitations Soft Tissue Tightness,Pain Comments lumbar spine ROM limited into flexion at 40 degrees Hip Goniometric Range of Motion Hip Right Testing Position Supine Straight Leg Raise 45 Extension 5 Internal Rotation 10 Hip ROM Limitations Hip ROM Limitations Soft Tissue Tightness Comments iliospoas tightness on the right, + juliano test position on the right, limited hip extension on the right vs the left, pain with hip IR on the right. PT-OP-M Strength Start: 05/13/20 12:52 Freq: Status: Active Protocol: Document 05/18/20 17:31 [facility] (Rec: 05/18/20 17:33 [facility] [id number]) Trunk Strength Trunk Manual Muscle Testing Core Stabilization + ASLR test on the right with SI joint on the left unlocking , decreased ability to contract the Transverse abdominals and pelvic floor with external pelvic floor assessment PT-OP-Q Treatments Start: 05/13/20 12:52 Freq: Status: Active Protocol: Document 06/03/20 09:00 [facility] (Rec: 06/03/20 09:14 [facility] [id number]) Therapeutic Exercises Supine Exercises roll outs theraband Reps/Minutes x10 reps supine ball squeeze with adductor contraction Reps/Minutes x 10 reps Comments pt able to feel a good pelvic floor contraction with ball squeeze piriformis stretch Supine Exercise Name piriformis stretch Comments pt okay on her back at this point and could feel the stretch TA trng and pelvic tilt Comments cued proper form Other Exercises seated exercise ball pelvic floor contractions Other Exercise Name seated pelvic floor contractions on the exercise ball Comments pt cued to lift from her perineum 1 Other Exercise Name standing warrior 1 Comments for stretching out the hip flexor quadruped TA activation Other Exercise Name quadruped TA activation Reps/Minutes x 10 quadruped sidebend Other Exercise Name quadruped sidebned Comments tail wag quadruped cat cow Other Exercise Name quadruped cat/cow Reps/Minutes x 10 reps Manual Therapy Treatment Soft Tissue Mobilization lumbar paraspinals Body Location lumbar paraspinal muscles Body Position Prone Comments prone over body pillow, STM/MFR to the lumbar paraspinals. PT tight in her thoracic spine as well so adding in thoracic quadruped rotation may be helpful for her. Manual Techniques MET Type MET for left posterior innominant rotation Comments pt shown technique in sidelying for SI correction for home. Please see handout in the chart PT-OP-T Assessment and Plan Start: 05/13/20 12:52 Freq: Status: Active Protocol: Document 06/03/20 09:55 [facility] (Rec: 06/03/20 09:57 [facility] [email or web address]) Physical Therapy Assessment Assessment Summary Assessment tried sidelying MET today for Diana for self alignment of her SI joint this worked well and aligned her. She was told to lay on her left side for self correction using the scissor technique with her . I also added adductor squeeze and roll outs . Continue to work on SI stabilization and reducing tone in the lumbar parapsinals . Her low back did not feel as tight today Physical Therapy Plan Frequency and Duration Frequency of Treatment 1x/Week Duration of Treatment 8 Plan of Care Start Date 05/13/20 Plan of Care End Date 07/08/20 Therapeutic Interventions Therapeutic Interventions Home Exercise Program,Manual Therapy,Neuromuscular Re- education,Patient/Caregiver Education,Self-Care/Home Management,Soft Tissue Mobilization,Therapeutic Exercises Next Visit Focus/Plan Next Note Type Treatment Note Next Visit Plan Recheck SI alignment, review all stabilization exercises and stretches. Please give pt the handout in her chart on self SI correction.
--- NOTE | 2020-06-15 08:15 | PT.OTN ---
Addendum entered and electronically signed by Nithya Ornelas, ELECTRIC DOLLY OPERATOR 06/15/20 10:09: Added Jace stretch due to anterior L hip tight during pirformis stretch, cued could do facing chair against wall to allow focus and PPT awareness to isolate hip flex stretch, warrior pose to challenging for stretch with UE OH but good for stabilization short tolerance can maintain. Original Note: Current Diagnoses Encounter for supervision of normal , unspecified, unspecified trimester (06/15/20) Personal history of (healed) traumatic fracture (06/15/20) Physical Therapy Treatment Note PT-OP-A Visit Information Start: 05/13/20 12:52 Freq: Status: Active Protocol: Document 06/15/20 07:31 SP (Rec: 06/15/20 08:19 SP [id number]) Out-Patient Physical Therapy Visit Information Visit Information Visit Type Treatment Note Visit Start Time 07:31 Visit Stop Time 08:15 Total Visit Minutes 44 Visit Number 3 Number of ELECTRIC DOLLY OPERATOR Visits 1 PT-OP-B Current Condition Start: 05/13/20 12:52 Freq: Status: Active Protocol: Document 05/13/20 15:17 [facility] (Rec: 05/13/20 15:25 [facility] [id number]) Current Condition History of Current Condition Onset Date 15 years old History of Current Condition Diana reports her symptoms began at 15 years old running track [employer], She reports having a freak accident and broke left hip where the growth plate came together She has had residual stiffness and pain in her left hip. At 19 years old she was in college running track, she was having pain in the inner thigh pelvis region. She began having so much pain with running she would limp. MFR showed a fracture in her right side. Since the hip fracture she has had stiffness. SHe is now with twins and is noticing that both hips are starting to hurt and she is experiencing pain into her gluteal region. She will be 10 weeks on Sunday. Diana reports she is walking 2-3 times per week for exercise and notes some increase in tightness in her back with walking now. Her pain is rated 2/10 but she really wants to do PT as a prevention for increased pain during her . Treatment Goals Patient/Caregiver Goals pt's goals include preventing pain and instability with her and learning stretching Current Functional Impairments (Reported) Functional Limitations- ADL's Pt is perfoming all usual ADL' s PT-OP-C Subjective Start: 05/13/20 12:52 Freq: Status: Active Protocol: Document 06/15/20 07:31 SP (Rec: 06/15/20 08:19 SP [id number]) OP-PT Subjective Patient Comments Patient Comments Pt reported the hip adduction isometric technique learned last tx to assist with pelvic realignment when having pain. Was able to tolerate long car ride to [place] out and back along with hiking while visiting, approx 1 mile with steep inclines. PT-OP-J Posture/Palpation/Skin Start: 05/13/20 12:52 Freq: Status: Active Protocol: Document 05/13/20 15:15 [facility] (Rec: 05/18/20 08:54 [facility] [email or web address]) Posture Evaluation Comments Posture Comments increased lordosis in standing with visable hypertrophy of the lumbar paraspinals, pelvis anteriorly rotated bilaterally Palpation Assessment Location ASIS B Palpation Location ASIS BILATERALLY Palpation Findings Soft Tissue Tightness, Tenderness Palpation Details tenderness R>L ASIS and the quadriceps attachment promimally, tightness in the quadriceps muscle PT-OP-K Range of Motion Start: 05/13/20 12:52 Freq: Status: Active Protocol: Document 05/13/20 15:15 [facility] (Rec: 05/18/20 08:54 [facility] [email or web address]) Lumbar Spine Range of Motion Lumbar Spine Active Testing Position Standing Flexion 40 Lateral Flexion Left 10 Lateral Flexion Right 10 ROM Limitations Soft Tissue Tightness,Pain Comments lumbar spine ROM limited into flexion at 40 degrees Hip Goniometric Range of Motion Hip Right Testing Position Supine Straight Leg Raise 45 Extension 5 Internal Rotation 10 Hip ROM Limitations Hip ROM Limitations Soft Tissue Tightness Comments iliospoas tightness on the right, + jace test position on the right, limited hip extension on the right vs the left, pain with hip IR on the right. PT-OP-M Strength Start: 05/13/20 12:52 Freq: Status: Active Protocol: Document 05/18/20 17:31 [facility] (Rec: 05/18/20 17:33 [facility] [id number]) Trunk Strength Trunk Manual Muscle Testing Core Stabilization + ASLR test on the right with SI joint on the left unlocking , decreased ability to contract the Transverse abdominals and pelvic floor with external pelvic floor assessment PT-OP-Q Treatments Start: 05/13/20 12:52 Freq: Status: Active Protocol: Document 06/15/20 07:31 SP (Rec: 06/15/20 08:19 SP [id number]) Therapeutic Exercises Supine Exercises roll outs theraband Supine Exercise Name (hooklying clamshell) Resistance Tb #2 Reps/Minutes 2 sec x10 reps supine ball squeeze with adductor contraction Reps/Minutes 3-5 sec hold x 10 reps Comments pt able to feel a good pelvic floor contraction with ball squeeze piriformis stretch Supine Exercise Name piriformis stretch hip IR/ ER Comments pt okay on her back at this point and could feel the stretch TA trng and pelvic tilt Side bilateral Comments cued proper form w/ not over activation Other Exercises child's pose Reps/Minutes 30 x2 seated exercise ball pelvic floor contractions Other Exercise Name seated pelvic floor contractions on the exercise ball Comments pt cued to lift from her perineum 1 Other Exercise Name standing warrior 1 Reps/Minutes stretch using facing chair and pose for TA stabilization Comments UE tiring only able hold 5 sec before TS flex noted, cued chest lift to chris quadruped TA activation Other Exercise Name quadruped TA activation Reps/Minutes x 10 quadruped sidebend Other Exercise Name quadruped sidebned Comments tail wag- cued fine motor pelvic way only not trunk side bend quadruped cat cow Other Exercise Name quadruped cat/cow Reps/Minutes x 10 reps Manual Therapy Treatment Manual Techniques MET Type MET for left posterior innominant rotation Comments pt shown technique in sidelying for SI correction for home. Please see handout in the chart (used bolster from self home application) PT-OP-T Assessment and Plan Start: 05/13/20 12:52 Freq: Status: Active Protocol: Document 06/15/20 07:31 SP (Rec: 06/15/20 08:19 SP [id number]) Physical Therapy Assessment Goals Four Impairment Decreased strength of the Transverse abdominals and pelvic floor Short Term Goal (STG) Diana is able to sustain a pelvic floor and transverse abdominal contraction for 10 second hold in sidelying. 06/15/20 Goal Met: able hold sustained 15 sec while sidelying. Pt commented difficult when doing standing activities to maintain, eg. hiking. STG Duration 5 weeks Three Impairment Tightness in the lumbar paraspinals with a increase in lumbar lordisis Skilled Nursing Goal (LTG) Diana is able to improve her lumbar flexion and decrease the amount of lordosis she goes into with her with specific exercises and manual therapy techniques to reduce anterior pelvic tilt. LTG Duration 8 weeks + Two Impairment SI instability with and history of a pelvic fracture in 2008 Short Term Goal (STG) Diana is educated on both Transverse abdominal stabilization and pelvic floor stabilization to improve support to her SI and pelvis during pregnacy STG Duration 6 weeks One Impairment Low back pain rated 2/10 Short Term Goal (STG) Diana is educated in stretches exercises for her low back that she can do throughout her Skilled Nursing Goal (LTG) Diana is able to continue walking 2-3 miles for exercise during her 06/15/20: progressing, challenged TA and PPT during hikes > 1 mile. LTG Duration 8 weeks + Assessment Summary Assessment Education for PPT tail bone tuck and only TA facilitation needed for task doing to decrease tiring out during task with improvement. Pt tires quickly during activity making gains though. Physical Therapy Plan Frequency and Duration Frequency of Treatment 1x/Week Duration of Treatment 8 Plan of Care Start Date 05/13/20 Plan of Care End Date 07/08/20 Therapeutic Interventions Therapeutic Interventions Home Exercise Program,Manual Therapy,Neuromuscular Re- education,Patient/Caregiver Education,Self-Care/Home Management,Soft Tissue Mobilization,Therapeutic Exercises Next Visit Focus/Plan Next Note Type Treatment Note Next Visit Plan Recheck SI alignment, review all stabilization exercises and stretches.
--- NOTE | 2020-06-22 17:38 | PT.OTN ---
Current Diagnoses Encounter for supervision of normal , unspecified, unspecified trimester (06/22/20) Personal history of (healed) traumatic fracture (06/22/20) Physical Therapy Treatment Note PT-OP-A Visit Information Start: 05/13/20 12:52 Freq: Status: Active Protocol: Document 06/22/20 09:49 [facility] (Rec: 06/22/20 10:13 [facility] [id number]) Out-Patient Physical Therapy Visit Information Visit Information Visit Type Treatment Note Visit Start Time 09:45 Visit Stop Time 10:30 Total Visit Minutes 45 Visit Number 4 Number of NATIONAL GUARD MEMBER Visits 0 Evaluation Information Evaluation Date 05/13/20 PT-OP-B Current Condition Start: 05/13/20 12:52 Freq: Status: Active Protocol: Document 05/13/20 15:17 [facility] (Rec: 05/13/20 15:25 [facility] [id number]) Current Condition History of Current Condition Onset Date 15 years old History of Current Condition Diana reports her symptoms began at 15 years old 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 At 19 years old she was in college running track, she was having pain in the inner thigh pelvis region. She began having so much pain with running she would limp. MFR showed a fracture in her right side. Since the hip fracture she has had stiffness. SHe is now with twins and is noticing that both hips are starting to hurt and she is experiencing pain into her gluteal region. She will be 10 weeks on Sunday. Diana reports she is walking 2-3 times per week for exercise and notes some increase in tightness in her back with walking now. Her pain is rated 2/10 but she really wants to do PT as a prevention for increased pain during her . Treatment Goals Patient/Caregiver Goals pt's goals include preventing pain and instability with her and learning stretching Current Functional Impairments (Reported) Functional Limitations- ADL's Pt is perfoming all usual ADL' s PT-OP-C Subjective Start: 05/13/20 12:52 Freq: Status: Active Protocol: Document 06/22/20 09:49 [facility] (Rec: 06/22/20 10:13 [facility] [id number]) OP-PT Subjective Patient Comments Patient Comments Diana has spent a lot of time in the car over the past few weeks. She is really feeling it. She notes she is in pain following the long car rides. She has been camping this past weeknd in [place]. She ahs questions regarding if she should start wearing compression stockings as she is experiencing fatigue in her legs PT-OP-J Posture/Palpation/Skin Start: 05/13/20 12:52 Freq: Status: Active Protocol: Document 05/13/20 15:15 [facility] (Rec: 05/18/20 08:54 [facility] [email or web address]) Posture Evaluation Comments Posture Comments increased lordosis in standing with visable hypertrophy of the lumbar paraspinals, pelvis anteriorly rotated bilaterally Palpation Assessment Location ASIS B Palpation Location ASIS BILATERALLY Palpation Findings Soft Tissue Tightness, Tenderness Palpation Details tenderness R>L ASIS and the quadriceps attachment promimally, tightness in the quadriceps muscle PT-OP-K Range of Motion Start: 05/13/20 12:52 Freq: Status: Active Protocol: Document 05/13/20 15:15 [facility] (Rec: 05/18/20 08:54 [facility] [email or web address]) Lumbar Spine Range of Motion Lumbar Spine Active Testing Position Standing Flexion 40 Lateral Flexion Left 10 Lateral Flexion Right 10 ROM Limitations Soft Tissue Tightness,Pain Comments lumbar spine ROM limited into flexion at 40 degrees Hip Goniometric Range of Motion Hip Right Testing Position Supine Straight Leg Raise 45 Extension 5 Internal Rotation 10 Hip ROM Limitations Hip ROM Limitations Soft Tissue Tightness Comments iliospoas tightness on the right, + juliano test position on the right, limited hip extension on the right vs the left, pain with hip IR on the right. PT-OP-M Strength Start: 05/13/20 12:52 Freq: Status: Active Protocol: Document 05/18/20 17:31 [facility] (Rec: 05/18/20 17:33 [facility] [id number]) Trunk Strength Trunk Manual Muscle Testing Core Stabilization + ASLR test on the right with SI joint on the left unlocking , decreased ability to contract the Transverse abdominals and pelvic floor with external pelvic floor assessment PT-OP-Q Treatments Start: 05/13/20 12:52 Freq: Status: Active Protocol: Document 06/22/20 17:35 [facility] (Rec: 06/22/20 17:38 [facility] [id number]) Therapeutic Exercises Supine Exercises supine ball squeeze with adductor contraction Reps/Minutes 3-5 sec hold x 10 reps Comments pt able to feel a good pelvic floor contraction with ball squeeze piriformis stretch Supine Exercise Name piriformis stretch hip IR/ ER Comments pt okay on her back at this point and could feel the stretch TA trng and pelvic tilt Side bilateral Comments cued proper form w/ not over activation Sidelying Exercises pelvic floor activation Sidelying Exercise Name pelvic floor activation Comments pt to work up to 10 reps of 10 second hold time Other Exercises quadruped TA activation Other Exercise Name quadruped TA activation Reps/Minutes x 10 quadruped sidebend Other Exercise Name quadruped sidebned quadruped cat cow Other Exercise Name quadruped cat/cow Reps/Minutes x 10 reps Manual Therapy Treatment Soft Tissue Mobilization piriformis release Body Location piriformis release lumbar paraspinals Body Location lumbar paraspinal muscles Body Position Prone Comments prone over body pillow, STM/MFR to the lumbar paraspinals. PT tight in her thoracic spine as well so adding in thoracic quadruped rotation may be helpful for her. PT-OP-T Assessment and Plan Start: 05/13/20 12:52 Freq: Status: Active Protocol: Document 06/22/20 17:35 [facility] (Rec: 06/22/20 17:38 [facility] [id number]) Physical Therapy Assessment Assessment Summary Assessment Educated pt today on both compression stockings and SI belt for walks. She awas able to find her pelvic floor today and her SI was in alignment. We talked about stretches after her long drives and walks. Physical Therapy Plan Frequency and Duration Frequency of Treatment 1x/Week Duration of Treatment 8 Plan of Care Start Date 05/13/20 Plan of Care End Date 07/08/20 Therapeutic Interventions Therapeutic Interventions Home Exercise Program,Manual Therapy,Neuromuscular Re- education,Patient/Caregiver Education,Self-Care/Home Management,Soft Tissue Mobilization,Therapeutic Exercises Next Visit Focus/Plan Next Note Type Treatment Note Next Visit Plan Recheck SI alignment, review all stabilization exercises and stretches.
--- NOTE | 2020-06-29 11:43 | PT.OTN ---
Current Diagnoses Encounter for supervision of normal , unspecified, unspecified trimester (06/29/20) Personal history of (healed) traumatic fracture (06/29/20) Physical Therapy Treatment Note PT-OP-A Visit Information Start: 05/13/20 12:52 Freq: Status: Active Protocol: Document 06/29/20 11:31 [facility] (Rec: 06/29/20 11:43 [facility] [id number]) Out-Patient Physical Therapy Visit Information Visit Information Visit Type Treatment Note Visit Start Time 09:00 Visit Stop Time 09:45 Total Visit Minutes 45 Visit Number 5 Number of ENOLOGIST Visits 0 PT-OP-B Current Condition Start: 05/13/20 12:52 Freq: Status: Active Protocol: Document 05/13/20 15:17 [facility] (Rec: 05/13/20 15:25 [facility] [id number]) Current Condition History of Current Condition Onset Date 15 years old History of Current Condition Diana reports her symptoms began at 15 years old running track [facility], She reports having a freak accident and broke left hip where the growth plate came together She has had residual stiffness and pain in her left hip. At 19 years old she was in college running track, she was having pain in the inner thigh pelvis region. She began having so much pain with running she would limp. MFR showed a fracture in her right side. Since the hip fracture she has had stiffness. SHe is now with twins and is noticing that both hips are starting to hurt and she is experiencing pain into her gluteal region. She will be 10 weeks on Sunday. Diana reports she is walking 2-3 times per week for exercise and notes some increase in tightness in her back with walking now. Her pain is rated 2/10 but she really wants to do PT as a prevention for increased pain during her . Treatment Goals Patient/Caregiver Goals pt's goals include preventing pain and instability with her and learning stretching Current Functional Impairments (Reported) Functional Limitations- ADL's Pt is perfoming all usual ADL' s PT-OP-C Subjective Start: 05/13/20 12:52 Freq: Status: Active Protocol: Document 06/29/20 11:31 [facility] (Rec: 06/29/20 11:43 [facility] [id number]) OP-PT Subjective Patient Comments Patient Comments Diana reports she has had left sacral pain since last week. The MET on her right side didn 't seem to help. She has been doing all the stretches PT-OP-J Posture/Palpation/Skin Start: 05/13/20 12:52 Freq: Status: Active Protocol: Document 05/13/20 15:15 [facility] (Rec: 05/18/20 08:54 [facility] [id number]) Posture Evaluation Comments Posture Comments increased lordosis in standing with visable hypertrophy of the lumbar paraspinals, pelvis anteriorly rotated bilaterally Palpation Assessment Location ASIS B Palpation Location ASIS BILATERALLY Palpation Findings Soft Tissue Tightness, Tenderness Palpation Details tenderness R>L ASIS and the quadriceps attachment promimally, tightness in the quadriceps muscle PT-OP-K Range of Motion Start: 05/13/20 12:52 Freq: Status: Active Protocol: Document 05/13/20 15:15 [facility] (Rec: 05/18/20 08:54 [facility] [email or web address]) Lumbar Spine Range of Motion Lumbar Spine Active Testing Position Standing Flexion 40 Lateral Flexion Left 10 Lateral Flexion Right 10 ROM Limitations Soft Tissue Tightness,Pain Comments lumbar spine ROM limited into flexion at 40 degrees Hip Goniometric Range of Motion Hip Right Testing Position Supine Straight Leg Raise 45 Extension 5 Internal Rotation 10 Hip ROM Limitations Hip ROM Limitations Soft Tissue Tightness Comments iliospoas tightness on the right, + juliano test position on the right, limited hip extension on the right vs the left, pain with hip IR on the right. PT-OP-M Strength Start: 05/13/20 12:52 Freq: Status: Active Protocol: Document 05/18/20 17:31 [facility] (Rec: 05/18/20 17:33 [facility] [id number]) Trunk Strength Trunk Manual Muscle Testing Core Stabilization + ASLR test on the right with SI joint on the left unlocking , decreased ability to contract the Transverse abdominals and pelvic floor with external pelvic floor assessment PT-OP-Q Treatments Start: 05/13/20 12:52 Freq: Status: Active Protocol: Document 06/29/20 11:31 [facility] (Rec: 06/29/20 11:43 [facility] [id number]) Therapeutic Exercises Supine Exercises 1/2 foam roll stretch Supine Exercise Name 1/2 foam roll stretch supine ball squeeze with adductor contraction Reps/Minutes 3-5 sec hold x 10 reps Comments pt able to feel a good pelvic floor contraction with ball squeeze piriformis stretch Supine Exercise Name piriformis stretch hip in figure 4 Comments pt okay on her back at this point and could feel the stretch TA trng and pelvic tilt Side bilateral Comments cued proper form w/ not over activation Sidelying Exercises pelvic floor activation Sidelying Exercise Name pelvic floor activation Reps/Minutes long holds and quick flicks Other Exercises quadruped TA activation Other Exercise Name quadruped TA activation Reps/Minutes x 10 quadruped sidebend Other Exercise Name quadruped sidebend quadruped cat cow Other Exercise Name quadruped cat/cow Reps/Minutes x 10 reps Manual Therapy Treatment Manual Techniques manual iliopsoas stretch Type manual iliopsoas stretch Comments left side much tighter than the right. manual hamstring stretch Type manual hamstring stretch MET Type trial of MET for anterior rotation Comments pt tolerated this much better, her left iliopsoas and hamstring were both tighter on the left today PT-OP-T Assessment and Plan Start: 05/13/20 12:52 Freq: Status: Active Protocol: Document 06/29/20 11:31 [facility] (Rec: 06/29/20 11:43 [facility] [id number]) Physical Therapy Assessment Assessment Summary Assessment Trial of size medium SI belt today and Diana may order for home. She is wearing compression stockings now which she feels is helping. We tried a left sided MET for anterior rotation today and she did much better with this. She is able to feel her pelvic floor now and hold for 10 seconds. Diana is starting to feel some tightness in her left rib cage so i added in 1 /2 foam roll stretch and she will try with a yoga mat rolled up for home. Physical Therapy Plan Frequency and Duration Frequency of Treatment 1x/Week Duration of Treatment 8 Plan of Care Start Date 05/13/20 Plan of Care End Date 07/08/20 Therapeutic Interventions Therapeutic Interventions Home Exercise Program,Manual Therapy,Neuromuscular Re- education,Patient/Caregiver Education,Self-Care/Home Management,Soft Tissue Mobilization,Therapeutic Exercises Next Visit Focus/Plan Next Note Type Treatment Note Next Visit Plan Begin working more on posture as Diana is starting to feel tightness in her rib cage, Recheck SI alignment, review all stabilization exercises and stretches.
--- NOTE | 2020-07-08 13:28 | PT.OTN ---
Current Diagnoses Encounter for supervision of normal , unspecified, unspecified trimester (07/08/20) Personal history of (healed) traumatic fracture (07/08/20) Physical Therapy Treatment Note PT-OP-A Visit Information Start: 05/13/20 12:52 Freq: Status: Active Protocol: Document 07/08/20 13:08 [facility] (Rec: 07/08/20 13:28 [facility] [id number]) Out-Patient Physical Therapy Visit Information Visit Information Visit Type Progress Note Visit Start Time 09:45 Visit Stop Time 10:30 Total Visit Minutes 45 Visit Number 6 Number of RAG BOILER Visits 0 PT-OP-B Current Condition Start: 05/13/20 12:52 Freq: Status: Active Protocol: Document 05/13/20 15:17 [facility] (Rec: 05/13/20 15:25 [facility] [id number]) Current Condition History of Current Condition Onset Date 15 years old History of Current Condition Diana reports her symptoms began at 15 years old running track [facility] [employer], She reports having a freak accident and broke left hip where the growth plate came together She has had residual stiffness and pain in her left hip. At 19 years old she was in college running track, she was having pain in the inner thigh pelvis region. She began having so much pain with running she would limp. MFR showed a fracture in her right side. Since the hip fracture she has had stiffness. SHe is now with twins and is noticing that both hips are starting to hurt and she is experiencing pain into her gluteal region. She will be 10 weeks on Sunday. Diana reports she is walking 2-3 times per week for exercise and notes some increase in tightness in her back with walking now. Her pain is rated 2/10 but she really wants to do PT as a prevention for increased pain during her . Treatment Goals Patient/Caregiver Goals pt's goals include preventing pain and instability with her and learning stretching Current Functional Impairments (Reported) Functional Limitations- ADL's Pt is perfoming all usual ADL' s PT-OP-C Subjective Start: 05/13/20 12:52 Freq: Status: Active Protocol: Document 07/08/20 13:08 [facility] (Rec: 07/08/20 13:28 [facility] [email or web address]) OP-PT Subjective Patient Comments Patient Comments Diana reports her sacrum has been much better overall. She hasn't had as much low back pain this week but is still feeling the right sided rib cage pain PT-OP-J Posture/Palpation/Skin Start: 05/13/20 12:52 Freq: Status: Active Protocol: Document 05/13/20 15:15 [facility] (Rec: 05/18/20 08:54 [facility] [email or web address]) Posture Evaluation Comments Posture Comments increased lordosis in standing with visable hypertrophy of the lumbar paraspinals, pelvis anteriorly rotated bilaterally Palpation Assessment Location ASIS B Palpation Location ASIS BILATERALLY Palpation Findings Soft Tissue Tightness, Tenderness Palpation Details tenderness R>L ASIS and the quadriceps attachment promimally, tightness in the quadriceps muscle PT-OP-K Range of Motion Start: 05/13/20 12:52 Freq: Status: Active Protocol: Document 05/13/20 15:15 [facility] (Rec: 05/18/20 08:54 [facility] [email or web address]) Lumbar Spine Range of Motion Lumbar Spine Active Testing Position Standing Flexion 40 Lateral Flexion Left 10 Lateral Flexion Right 10 ROM Limitations Soft Tissue Tightness,Pain Comments lumbar spine ROM limited into flexion at 40 degrees Hip Goniometric Range of Motion Hip Right Testing Position Supine Straight Leg Raise 45 Extension 5 Internal Rotation 10 Hip ROM Limitations Hip ROM Limitations Soft Tissue Tightness Comments iliospoas tightness on the right, + juliano test position on the right, limited hip extension on the right vs the left, pain with hip IR on the right. PT-OP-M Strength Start: 05/13/20 12:52 Freq: Status: Active Protocol: Document 05/18/20 17:31 [facility] (Rec: 05/18/20 17:33 [facility] [id number]) Trunk Strength Trunk Manual Muscle Testing Core Stabilization + ASLR test on the right with SI joint on the left unlocking , decreased ability to contract the Transverse abdominals and pelvic floor with external pelvic floor assessment PT-OP-Q Treatments Start: 05/13/20 12:52 Freq: Status: Active Protocol: Document 07/08/20 13:08 [facility] (Rec: 07/08/20 13:28 [facility] [email or web address]) Therapeutic Exercises Supine Exercises 1 Supine Exercise Name oblique stretch with LTR diaphragmatic breathing Supine Exercise Name diaphragmatic breathing Comments with myofascial release around the right diaphram attachments to the rib ca supine stretch over small ball Supine Exercise Name supine stretch over the small ball Comments stretch to open up the rib cage Manual Therapy Treatment Soft Tissue Mobilization thoracic spine STM Body Location thoracic parapsinal massage lumbar paraspinals Body Location lumbar paraspinal muscles Body Position Prone Comments prone over body pillow, STM/MFR to the lumbar paraspinals. PT tight in her thoracic spine as well so adding in thoracic quadruped rotation may be helpful for her. Manual Techniques gentle thoracic mobilization Type grade 2 thoracic mobilizations Comments pt seated in a chair with upper arms and chest resting on the bed. PT-OP-T Assessment and Plan Start: 05/13/20 12:52 Freq: Status: Active Protocol: Document 07/08/20 13:08 [facility] (Rec: 07/08/20 13:28 [facility] [email or web address]) Physical Therapy Assessment Goals Four Impairment Decreased strength of the Transverse abdominals and pelvic floor Short Term Goal (STG) Diana is able to sustain a pelvic floor and transverse abdominal contraction for 10 second hold in sidelying. 06/15/20 Goal Met: able hold sustained 15 sec while sidelying. Pt commented difficult when doing standing activities to maintain, eg. hiking. STG Duration 5 weeks Three Impairment Tightness in the lumbar paraspinals with a increase in lumbar lordisis Equine Dentist Goal (LTG) Diana is able to improve her lumbar flexion and decrease the amount of lordosis she goes into with her with specific exercises and manual therapy techniques to reduce anterior pelvic tilt. [facility] LTG Duration 8 weeks + Two Impairment SI instability with and history of a pelvic fracture in 2008 Short Term Goal (STG) Diana is educated on both Transverse abdominal stabilization and pelvic floor stabilization to improve support to her SI and pelvis during pregnacy GOAL MET STG Duration 6 weeks One Impairment Low back pain rated 2/10 Short Term Goal (STG) Diana is educated in stretches exercises for her low back that she can do throughout her excellent progress and we are updating her exercises as she progresses with her . Equine Dentist Goal (LTG) Diana is able to continue walking 2-3 miles for exercise during her 06/15/20: progressing, challenged TA and PPT during hikes > 1 mile. LTG Duration 8 weeks + Progress Towards Goals Progress Towards Goals Progressing Toward Goals Assessment Summary Assessment Diana is making steady progress with PT. She notes she is not experiencing the SI and sacral pain she had been feeling and has been working on her exercises. Recently Diana has experienced pain under her ribcage on the right side. I did work with her today on stretches to open up the chest, gentle thoracic mobilizations, and diaphragmatic breathing. She tolerated this well today. Diana would like to continue visits in PT as she feels it is helping her with her . Physical Therapy Plan Frequency and Duration Frequency of Treatment 1x/Week Duration of Treatment 8 Plan of Care Start Date 07/08/20 Plan of Care End Date 09/02/20
--- NOTE | 2020-07-08 13:28 | PT.OPPOC ---
Physical, Occupational & Speech Therapy At [facility] Current Diagnoses Encounter for supervision of normal , unspecified, unspecified trimester (07/08/20) Personal history of (healed) traumatic fracture (07/08/20) Visit Care Team Role Provider Type Pedrito Narvaez DO Primary Care Provider Non-Staff Specialty: Family Practice Address: [address] [place] [address], [id number] Email: Jessica Patel MD Attending Provider Physician Referring Provider Specialty: Family Practice Address: [address] [place] [address], [facility], [place], [address] Email: [email or web address] Plan Of Care PT-OP-T Assessment and Plan Start: 05/13/20 12:52 Freq: Status: Active Protocol: Document 07/08/20 13:08 AMH (Rec: 07/08/20 13:28 AMH [email or web address]) Physical Therapy Assessment Goals Four Impairment Decreased strength of the Transverse abdominals and pelvic floor Short Term Goal (STG) Diana is able to sustain a pelvic floor and transverse abdominal contraction for 10 second hold in sidelying. 06/15/20 Goal Met: able hold sustained 15 sec while sidelying. Pt commented difficult when doing standing activities to maintain, eg. hiking. STG Duration 5 weeks Three Impairment Tightness in the lumbar paraspinals with a increase in lumbar lordosis Top Frame Fitter Goal (LTG) Diana is able to improve her lumbar flexion and decrease the amount of lordosis she goes into with her with specific exercises and manual therapy techniques to reduce anterior pelvic tilt. GOOD PROGRESS LTG Duration 8 weeks + Two Impairment SI instability with and history of a pelvic fracture in 2008 Short Term Goal (STG) Diana is educated on both Transverse abdominal stabilization and pelvic floor stabilization to improve support to her SI and pelvis during GOAL MET STG Duration 6 weeks One Impairment Low back pain rated 2/10 Short Term Goal (STG) Diana is educated in stretches exercises for her low back that she can do throughout her excellent progress and we are updating her exercises as she progresses with her . Top Frame Fitter Goal (LTG) Diana is able to continue walking 2-3 miles for exercise during her 06/15/20: progressing, challenged TA and PPT during hikes > 1 mile. LTG Duration 8 weeks + Progress Towards Goals Progress Towards Goals Progressing Toward Goals Assessment Summary Assessment Diana is making steady progress with PT. She notes she is not experiencing the SI and sacral pain she had been feeling and has been working on her exercises. Recently Diana has experienced pain under her ribcage on the right side. I did work with her today on stretches to open up the chest, gentle thoracic mobilizations, and diaphragmatic breathing. She tolerated this well today. Diana would like to continue visits in PT as she feels it is helping her with her . Physical Therapy Plan Frequency and Duration Frequency of Treatment 1x/Week Duration of Treatment 8 Plan of Care Start Date 07/08/20 Plan of Care End Date 09/02/20 Plan of Care Dates Plan of Care Start Date 07/08/20 Plan of Care End Date 09/02/20 Electronically Signed by: Priya Springer, PT 07/08/20 2970 Please Sign and Return: I have reviewed this Plan of Care and certify that the skilled therapy services above are required to meet the patient?s needs. Physician Signature Date Printed Name and Credentials Clinical Instructor Signature Printed Name and Credentials
--- NOTE | 2020-07-16 10:30 | PT.OTN ---
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 At 19 years old she was in college running track, she was having pain in the inner thigh pelvis region. She began having so much pain with running she would limp. MFR showed a fracture in her right side. Since the hip fracture she has had stiffness. SHe is now with twins and is noticing that both hips are starting to hurt and she is experiencing pain into her gluteal region. She will be 10 weeks on Sunday. Diana reports she is walking 2-3 times per week for exercise and notes some increase in tightness in her back with walking now. Her pain is rated 2/10 but she really wants to do PT as a prevention for increased pain during her . Treatment Goals Patient/Caregiver Goals pt's goals include preventing pain and instability with her and learning stretching Current Functional Impairments (Reported) Functional Limitations- ADL's Pt is perfoming all usual ADL' s PT-OP-C Subjective Start: 05/13/20 12:52 Freq: Status: Active Protocol: Document 07/16/20 09:45 SP (Rec: 07/16/20 12:15 SP [id number]) OP-PT Subjective Patient Comments Patient Comments LB sciatic pain not as bad, new thing at reported las tx: R inferior ribcage more anterior than lateral. PT-OP-J Posture/Palpation/Skin Start: 05/13/20 12:52 Freq: Status: Active Protocol: Document 05/13/20 15:15 AMH (Rec: 05/18/20 08:54 AMH [email or web address]) Posture Evaluation Comments Posture Comments increased lordosis in standing with visable hypertrophy of the lumbar paraspinals, pelvis anteriorly rotated bilaterally Palpation Assessment Location ASIS B Palpation Location ASIS BILATERALLY Palpation Findings Soft Tissue Tightness, Tenderness Palpation Details tenderness R>L ASIS and the quadriceps attachment promimally, tightness in the quadriceps muscle PT-OP-K Range of Motion Start: 05/13/20 12:52 Freq: Status: Active Protocol: Document 05/13/20 15:15 AMH (Rec: 05/18/20 08:54 AMH [email or web address]) Lumbar Spine Range of Motion Lumbar Spine Active Testing Position Standing Flexion 40 Lateral Flexion Left 10 Lateral Flexion Right 10 ROM Limitations Soft Tissue Tightness,Pain Comments lumbar spine ROM limited into flexion at 40 degrees Hip Goniometric Range of Motion Hip Right Testing Position Supine Straight Leg Raise 45 Extension 5 Internal Rotation 10 Hip ROM Limitations Hip ROM Limitations Soft Tissue Tightness Comments iliospoas tightness on the right, + juliano test position on the right, limited hip extension on the right vs the left, pain with hip IR on the right. PT-OP-M Strength Start: 05/13/20 12:52 Freq: Status: Active Protocol: Document 05/18/20 17:31 AMH (Rec: 05/18/20 17:33 AMH [id number]) Trunk Strength Trunk Manual Muscle Testing Core Stabilization + ASLR test on the right with SI joint on the left unlocking , decreased ability to contract the Transverse abdominals and pelvic floor with external pelvic floor assessment PT-OP-Q Treatments Start: 05/13/20 12:52 Freq: Status: Active Protocol: Document 07/16/20 09:45 SP (Rec: 07/16/20 12:15 SP [id number]) Therapeutic Exercises Supine Exercises supine bridge swill ball TS ext Supine Exercise Name ribcage/ TS extension to tolerant range (modified hand out pic) Equipment Used 65 cm mongolian ball Reps/Minutes 10 sec Comments cued near table and extra person for safety support- short to unsure chris diaphragmatic breathing Supine Exercise Name diaphragmatic breathing Comments with myofascial release around the right diaphram attachments to the rib ca supine stretch over small ball Supine Exercise Name supine stretch over the small ball Comments stretch to open up the rib cage 1/2 foam roll stretch Supine Exercise Name full short foam roll stretch Equipment Used elbows some what WB on floor for support needed Reps/Minutes along TS 2 min Comments cued LS/ core facilitation to support back during TS self comfort Other Exercises child's pose Other Exercise Name lat stretch w/ side bend Equipment Used foam roller and 65 cm mongolian ball Reps/Minutes 30 x2 quadruped sidebend Other Exercise Name quadruped lat stretch forward and sidebend Side bilateral Resistance AROM Equipment Used 65 cm mongolian ball Reps/Minutes 2 min Comments cued tolerant LE base- good reponse ribcage stretch quadruped cat cow Other Exercise Name quadruped cat/cow and tail wag Equipment Used 65 cm mongolian ball Reps/Minutes x 10 reps Manual Therapy Treatment Soft Tissue Mobilization R lateral intercostals Body Location lower lateral intercostals Mobilization Type Sustained Pressure,Other Intensity/Depth Moderate Body Position Sidelying Comments elevated supine and L sidelying MWM & diaphramatic breath Self supine over small purple ball PT-OP-T Assessment and Plan Start: 05/13/20 12:52 Freq: Status: Active Protocol: Document 07/16/20 09:45 SP (Rec: 07/16/20 12:15 SP [id number]) Physical Therapy Assessment Goals Four Impairment Decreased strength of the Transverse abdominals and pelvic floor Short Term Goal (STG) Diana is able to sustain a pelvic floor and transverse abdominal contraction for 10 second hold in sidelying. 06/15/20 Goal Met: able hold sustained 15 sec while sidelying. Pt commented difficult when doing standing activities to maintain, eg. hiking. STG Duration 5 weeks Three Impairment Tightness in the lumbar paraspinals with a increase in lumbar lordisis Longterm Goal (LTG) Diana is able to improve her lumbar flexion and decrease the amount of lordosis she goes into with her with specific exercises and manual therapy techniques to reduce anterior pelvic tilt. GOOD PROGESS LTG Duration 8 weeks + Two Impairment SI instability with and history of a pelvic fracture in 2008 Short Term Goal (STG) Diana is educated on both Transverse abdominal stabilization and pelvic floor stabilization to improve support to her SI and pelvis during pregnacy GOAL MET STG Duration 6 weeks One Impairment Low back pain rated 2/10 Short Term Goal (STG) Diana is educated in stretches exercises for her low back that she can do throughout her excellent progress and we are updating her exercises as she progresses with her . Longterm Goal (LTG) Diana is able to continue walking 2-3 miles for exercise during her 06/15/20: progressing, challenged TA and PPT during hikes > 1 mile. LTG Duration 8 weeks + Assessment Summary Assessment Tx focused on R lateral intercostal decrease pain and tightness. Manual and self sustained pressure and diaphramatic breath MWM with good benefit feedback. Assess supine and child's pose over mongolian ball for self relief, noted more beneficial child's pose. Educated if supine having and peforming near table for safety contact with verbal agreement. Did not tolerate supine bridge TS ext very long, stating did feel completely comfortable, preferred quadruped stretch then incorporated little more challenge LS side bend core facilitation modified plank knee/ elbows. No adverse affects to tx today all helpful to do at home. Physical Therapy Plan Frequency and Duration Frequency of Treatment 1x/Week Duration of Treatment 8 Plan of Care Start Date 07/08/20 Plan of Care End Date 09/02/20 Therapeutic Interventions Therapeutic Interventions Home Exercise Program,Manual Therapy,Neuromuscular Re- education,Patient/Caregiver Education,Self-Care/Home Management,Soft Tissue Mobilization,Therapeutic Exercises Next Visit Focus/Plan Next Note Type Treatment Note Next Visit Plan Continue begin working more on posture as Diana is starting to feel tightness in her R anterolateral rib cage, Recheck SI alignment, review all stabilization exercises and stretches.
--- NOTE | 2020-07-20 11:51 | PT.OTN ---
Current Diagnoses Low back pain (07/20/20) Encounter for supervision of normal , unspecified, unspecified trimester (07/20/20) Personal history of (healed) traumatic fracture (07/20/20) Physical Therapy Treatment Note PT-OP-A Visit Information Start: 05/13/20 12:52 Freq: Status: Active Protocol: Document 07/20/20 11:39 AMH (Rec: 07/20/20 11:51 AMH [email or web address]) Out-Patient Physical Therapy Visit Information Visit Information Visit Type Treatment Note Visit Start Time 09:00 Visit Stop Time 09:45 Total Visit Minutes 45 Visit Number 8 Number of INSTANT PRINTER OPERATOR Visits 0 PT-OP-B Current Condition Start: 05/13/20 12:52 Freq: Status: Active Protocol: Document 05/13/20 15:17 AMH (Rec: 05/13/20 15:25 AMH [id number]) Current Condition History of Current Condition Onset Date 15 years old History of Current Condition Diana reports her symptoms began at 15 years old 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 At 19 years old she was in college running track, she was having pain in the inner thigh pelvis region. She began having so much pain with running she would limp. MFR showed a fracture in her right side. Since the hip fracture she has had stiffness. SHe is now with twins and is noticing that both hips are starting to hurt and she is experiencing pain into her gluteal region. She will be 10 weeks on Sunday. Diana reports she is walking 2-3 times per week for exercise and notes some increase in tightness in her back with walking now. Her pain is rated 2/10 but she really wants to do PT as a prevention for increased pain during her . Treatment Goals Patient/Caregiver Goals pt's goals include preventing pain and instability with her and learning stretching Current Functional Impairments (Reported) Functional Limitations- ADL's Pt is perfoming all usual ADL' s PT-OP-C Subjective Start: 05/13/20 12:52 Freq: Status: Active Protocol: Document 07/20/20 11:39 AMH (Rec: 07/20/20 11:51 AMH [email or web address]) OP-PT Subjective Patient Comments Patient Comments Diana reports her pelvis and sacrum are doing well. She is still having the pain at the right rib cage. 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 She has been doing her stretches and it helps but hasn't gotten rid of the pain PT-OP-J Posture/Palpation/Skin Start: 05/13/20 12:52 Freq: Status: Active Protocol: Document 05/13/20 15:15 AMH (Rec: 05/18/20 08:54 AMH [email or web address]) Posture Evaluation Comments Posture Comments increased lordosis in standing with visable hypertrophy of the lumbar paraspinals, pelvis anteriorly rotated bilaterally Palpation Assessment Location ASIS B Palpation Location ASIS BILATERALLY Palpation Findings Soft Tissue Tightness, Tenderness Palpation Details tenderness R>L ASIS and the quadriceps attachment promimally, tightness in the quadriceps muscle PT-OP-K Range of Motion Start: 05/13/20 12:52 Freq: Status: Active Protocol: Document 05/13/20 15:15 AMH (Rec: 05/18/20 08:54 AMH [email or web address]) Lumbar Spine Range of Motion Lumbar Spine Active Testing Position Standing Flexion 40 Lateral Flexion Left 10 Lateral Flexion Right 10 ROM Limitations Soft Tissue Tightness,Pain Comments lumbar spine ROM limited into flexion at 40 degrees Hip Goniometric Range of Motion Hip Right Testing Position Supine Straight Leg Raise 45 Extension 5 Internal Rotation 10 Hip ROM Limitations Hip ROM Limitations Soft Tissue Tightness Comments iliospoas tightness on the right, + juliano test position on the right, limited hip extension on the right vs the left, pain with hip IR on the right. PT-OP-M Strength Start: 05/13/20 12:52 Freq: Status: Active Protocol: Document 05/18/20 17:31 AMH (Rec: 05/18/20 17:33 AMH [id number]) Trunk Strength Trunk Manual Muscle Testing Core Stabilization + ASLR test on the right with SI joint on the left unlocking , decreased ability to contract the Transverse abdominals and pelvic floor with external pelvic floor assessment PT-OP-Q Treatments Start: 05/13/20 12:52 Freq: Status: Active Protocol: Document 07/20/20 11:39 AMH (Rec: 07/20/20 11:51 AMH [email or web address]) Therapeutic Exercises Standing Exercises standing theraband rows Standing Exercise Name Standing theraband rows Reps/Minutes level 1 theraband 3 x 10 reps Other Exercises puppy pose with thoracic extension and rotation Other Exercise Name puppy pose with thoracic extension and rotation child's pose Other Exercise Name lat stretch w/ side bend quadruped sidebend Other Exercise Name quadruped lat stretch forward and sidebend Side bilateral Resistance AROM Reps/Minutes 2 min quadruped cat cow Other Exercise Name quadruped cat/cow and tail wag Manual Therapy Treatment Soft Tissue Mobilization R lateral intercostals Body Location lower lateral intercostals Mobilization Type Sustained Pressure,Other Intensity/Depth Moderate Body Position Sidelying Comments elevated supine and L sidelying MWM & diaphramatic breath thoracic spine STM Body Location thoracic parapsinal massage Taping 1 Body Location kinesiotape to activate the lower trapezius and inhibit the pec minor Manual Techniques sidelying scapular mobilizations Type sidelying scapular mobilizations in Comments scapular upward rotation caused a big pull in Diana's anterior stomach. She felt uncomfortable with the stretch so I worked more on scapula elevation and depression. gentle thoracic mobilization Type grade 2 thoracic mobilizations Comments in left sidelying PT-OP-T Assessment and Plan Start: 05/13/20 12:52 Freq: Status: Active Protocol: Document 07/20/20 11:39 AMH (Rec: 07/20/20 11:51 AMH [email or web address]) Physical Therapy Assessment Assessment Summary Assessment Diana is still having a lot of discomfort at the right lateral intercostals. I worked on fascial release in that region as well as thoracic and rib cage mobilizations. I tried sidelying scapular mobs and with scapula upward rotation this brought on a very large abdominal stretch. I tried kinesiotape for pec minor inhibition and facilitation of the lower trapezius. I added in standing theraband rows for thoracic extension. 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 Physical Therapy Plan Frequency and Duration Frequency of Treatment 1x/Week Duration of Treatment 8 Plan of Care Start Date 07/08/20 Plan of Care End Date 09/02/20 Therapeutic Interventions Therapeutic Interventions Home Exercise Program,Manual Therapy,Neuromuscular Re- education,Patient/Caregiver Education,Self-Care/Home Management,Soft Tissue Mobilization,Therapeutic Exercises Next Visit Focus/Plan Next Note Type Treatment Note Next Visit Plan check theraband rows, check tape effectiveness, re try scapular upward rotation and pec minor stretches, postural modifications
--- NOTE | 2020-07-27 15:45 | PT.OTN ---
Current Diagnoses Low back pain (07/27/20) Encounter for supervision of normal , unspecified, unspecified trimester (07/27/20) Personal history of (healed) traumatic fracture (07/27/20) Physical Therapy Treatment Note PT-OP-A Visit Information Start: 05/13/20 12:52 Freq: Status: Active Protocol: Document 07/27/20 14:34 [facility] (Rec: 07/27/20 14:35 [facility] [id number]) Out-Patient Physical Therapy Visit Information Visit Information Visit Type Treatment Note Visit Start Time 14:30 Visit Stop Time 15:15 Total Visit Minutes 45 Visit Number 9 PT-OP-B Current Condition Start: 05/13/20 12:52 Freq: Status: Active Protocol: Document 05/13/20 15:17 [facility] (Rec: 05/13/20 15:25 [facility] [id number]) Current Condition History of Current Condition Onset Date 15 years old History of Current Condition 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 At 19 years old she was in college running track, she was having pain in the inner thigh pelvis region. She began having so much pain with running she would limp. MFR showed a fracture in her right side. Since the hip fracture she has had stiffness. SHe is now with twins and is noticing that both hips are starting to hurt and she is experiencing pain into her gluteal region. She will be 10 weeks on Sunday. Diana reports she is walking 2-3 times per week for exercise and notes some increase in tightness in her back with walking now. Her pain is rated 2/10 but she really wants to do PT as a prevention for increased pain during her . Treatment Goals Patient/Caregiver Goals pt's goals include preventing pain and instability with her and learning stretching Current Functional Impairments (Reported) Functional Limitations- ADL's Pt is perfoming all usual ADL' s PT-OP-C Subjective Start: 05/13/20 12:52 Freq: Status: Active Protocol: Document 07/27/20 14:35 [facility] (Rec: 07/27/20 14:36 [facility] [id number]) OP-PT Subjective Patient Comments Patient Comments Had a few days of good relief and then then the pain came back. Diana reports she really liked the tape last visit. Rib pain is back again PT-OP-J Posture/Palpation/Skin Start: 05/13/20 12:52 Freq: Status: Active Protocol: Document 05/13/20 15:15 [facility] (Rec: 05/18/20 08:54 [facility] [email or web address]) Posture Evaluation Comments Posture Comments increased lordosis in standing with visable hypertrophy of the lumbar paraspinals, pelvis anteriorly rotated bilaterally Palpation Assessment Location ASIS B Palpation Location ASIS BILATERALLY Palpation Findings Soft Tissue Tightness, Tenderness Palpation Details tenderness R>L ASIS and the quadriceps attachment promimally, tightness in the quadriceps muscle PT-OP-K Range of Motion Start: 05/13/20 12:52 Freq: Status: Active Protocol: Document 05/13/20 15:15 [facility] (Rec: 05/18/20 08:54 [facility] [email or web address]) Lumbar Spine Range of Motion Lumbar Spine Active Testing Position Standing Flexion 40 Lateral Flexion Left 10 Lateral Flexion Right 10 ROM Limitations Soft Tissue Tightness,Pain Comments lumbar spine ROM limited into flexion at 40 degrees Hip Goniometric Range of Motion Hip Right Testing Position Supine Straight Leg Raise 45 Extension 5 Internal Rotation 10 Hip ROM Limitations Hip ROM Limitations Soft Tissue Tightness Comments iliospoas tightness on the right, + juliano test position on the right, limited hip extension on the right vs the left, pain with hip IR on the right. PT-OP-M Strength Start: 05/13/20 12:52 Freq: Status: Active Protocol: Document 05/18/20 17:31 [facility] (Rec: 05/18/20 17:33 [facility] [id number]) Trunk Strength Trunk Manual Muscle Testing Core Stabilization + ASLR test on the right with SI joint on the left unlocking , decreased ability to contract the Transverse abdominals and pelvic floor with external pelvic floor assessment PT-OP-Q Treatments Start: 05/13/20 12:52 Freq: Status: Active Protocol: Document 07/27/20 15:39 [facility] (Rec: 07/27/20 15:45 [facility] [email or web address]) Therapeutic Exercises Supine Exercises diaphragmatic breathing Supine Exercise Name diaphragmatic breathing Comments with myofascial release around the right diaphram attachments to the rib ca Other Exercises puppy pose with thoracic extension and rotation Other Exercise Name puppy pose with thoracic extension and rotation child's pose Other Exercise Name lat stretch w/ side bend quadruped cat cow Other Exercise Name quadruped cat/cow and tail wag Manual Therapy Treatment Soft Tissue Mobilization thoracic spine STM Body Location thoracic parapsinal massage Body Position Prone Comments prone over body pillow lumbar paraspinals Body Location lumbar paraspinal muscles Body Position Prone Comments prone over body pillow, STM/MFR to the lumbar paraspinals. PT tight in her thoracic spine as well so adding in thoracic quadruped rotation may be helpful for her. Taping 1 Body Location kinesiotape to activate the lower trapezius and inhibit the pec minor Manual Techniques gentle thoracic mobilization Type grade 2 thoracic mobilizations Comments in left sidelying PT-OP-T Assessment and Plan Start: 05/13/20 12:52 Freq: Status: Active Protocol: Document 07/27/20 15:39 [facility] (Rec: 07/27/20 15:45 [facility] [email or web address]) Physical Therapy Assessment Assessment Summary Assessment Diana did feel relief last visit from both the tape and the manual therapy work. She is working on her stretches Physical Therapy Plan Frequency and Duration Frequency of Treatment 1x/Week Duration of Treatment 8 Plan of Care Start Date 07/08/20 Plan of Care End Date 09/02/20 Therapeutic Interventions Therapeutic Interventions Home Exercise Program,Manual Therapy,Neuromuscular Re- education,Patient/Caregiver Education,Self-Care/Home Management,Soft Tissue Mobilization,Therapeutic Exercises Next Visit Focus/Plan Next Note Type Treatment Note Next Visit Plan continue to work on rib cage expansion and thoracic extension. Patient to continue to work on transverse abdominal stabilization for SI support and stabilization
--- NOTE | 2020-08-10 17:42 | PT.OTN ---
Current Diagnoses Low back pain (08/10/20) Encounter for supervision of normal , unspecified, unspecified trimester (08/10/20) Personal history of (healed) traumatic fracture (08/10/20) Physical Therapy Treatment Note PT-OP-A Visit Information Start: 05/13/20 12:52 Freq: Status: Active Protocol: Document 08/10/20 17:35 [facility] (Rec: 08/10/20 17:42 [facility] [id number]) Out-Patient Physical Therapy Visit Information Visit Information Visit Type Treatment Note Visit Start Time 09:45 Visit Stop Time 10:30 Total Visit Minutes 45 Visit Number 10 PT-OP-B Current Condition Start: 05/13/20 12:52 Freq: Status: Active Protocol: Document 05/13/20 15:17 [facility] (Rec: 05/13/20 15:25 [facility] [id number]) Current Condition History of Current Condition Onset Date 15 years old History of Current Condition Diana reports her symptoms began at 15 years old [facility] [employer] [facility], She reports having a freak accident and broke left hip where the growth plate came together She has had residual stiffness and pain in her left hip. At 19 years old she was in college running track, she was having pain in the inner thigh pelvis region. She began having so much pain with running she would limp. MFR showed a fracture in her right side. Since the hip fracture she has had stiffness. SHe is now with twins and is noticing that both hips are starting to hurt and she is experiencing pain into her gluteal region. She will be 10 weeks on Sunday. Diana reports she is walking 2-3 times per week for exercise and notes some increase in tightness in her back with walking now. Her pain is rated 2/10 but she really wants to do PT as a prevention for increased pain during her . Treatment Goals Patient/Caregiver Goals pt's goals include preventing pain and instability with her and learning stretching Current Functional Impairments (Reported) Functional Limitations- ADL's Pt is perfoming all usual ADL' s PT-OP-C Subjective Start: 05/13/20 12:52 Freq: Status: Active Protocol: Document 08/10/20 17:35 [facility] (Rec: 08/10/20 17:42 [facility] [id number]) OP-PT Subjective Patient Comments Patient Comments Diana reports she is not experincing the sacral pain but can feel tightness and pressure in her pelvis like she did when she fractured her pelvis. She also reports feeling swelling in the midline under her rib cage and feels as if the tissue is tearing PT-OP-J Posture/Palpation/Skin Start: 05/13/20 12:52 Freq: Status: Active Protocol: Document 05/13/20 15:15 [facility] (Rec: 05/18/20 08:54 [facility] [email or web address]) Posture Evaluation Comments Posture Comments increased lordosis in standing with visable hypertrophy of the lumbar paraspinals, pelvis anteriorly rotated bilaterally Palpation Assessment Location ASIS B Palpation Location ASIS BILATERALLY Palpation Findings Soft Tissue Tightness, Tenderness Palpation Details tenderness R>L ASIS and the quadriceps attachment promimally, tightness in the quadriceps muscle PT-OP-K Range of Motion Start: 05/13/20 12:52 Freq: Status: Active Protocol: Document 05/13/20 15:15 [facility] (Rec: 05/18/20 08:54 [facility] [email or web address]) Lumbar Spine Range of Motion Lumbar Spine Active Testing Position Standing Flexion 40 Lateral Flexion Left 10 Lateral Flexion Right 10 ROM Limitations Soft Tissue Tightness,Pain Comments lumbar spine ROM limited into flexion at 40 degrees Hip Goniometric Range of Motion Hip Right Testing Position Supine Straight Leg Raise 45 Extension 5 Internal Rotation 10 Hip ROM Limitations Hip ROM Limitations Soft Tissue Tightness Comments iliospoas tightness on the right, + juliano test position on the right, limited hip extension on the right vs the left, pain with hip IR on the right. PT-OP-M Strength Start: 05/13/20 12:52 Freq: Status: Active Protocol: Document 05/18/20 17:31 [facility] (Rec: 05/18/20 17:33 [facility] [id number]) Trunk Strength Trunk Manual Muscle Testing Core Stabilization + ASLR test on the right with SI joint on the left unlocking , decreased ability to contract the Transverse abdominals and pelvic floor with external pelvic floor assessment PT-OP-Q Treatments Start: 05/13/20 12:52 Freq: Status: Active Protocol: Document 08/10/20 17:35 [facility] (Rec: 08/10/20 17:42 [facility] [id number]) Manual Therapy Treatment Soft Tissue Mobilization R lateral intercostals Body Location lower lateral intercostals Mobilization Type Sustained Pressure,Other Intensity/Depth Moderate Body Position Sidelying Comments elevated supine and L sidelying MWM & diaphramatic breath thoracic spine STM Body Location thoracic parapsinal massage Body Position Prone Comments prone over body pillow Taping 2 Body Location kinesio tape at the linea alba to help with diastasis Comments pt notes this tape feels good right away 1 Body Location kinesiotape to activate the lower trapezius and inhibit the pec minor Manual Techniques sidelying scapular mobilizations Type sidelying scapular mobilizations in Comments scapular upward rotation caused a big pull in Diana's anterior stomach. She felt uncomfortable with the stretch so I worked more on scapula elevation and depression. PT-OP-T Assessment and Plan Start: 05/13/20 12:52 Freq: Status: Active Protocol: Document 08/10/20 17:35 [facility] (Rec: 08/10/20 17:42 [facility] [id number]) Physical Therapy Assessment Assessment Summary Assessment I talked to Diana about adductor and pelvic floor guarding which can cause symptoms of pelvic pressure. Seh is very guarded today in the right adductor. We talked about her Si stability and that she may need to back off on exercise and rest more if she is having pain in her pelvic ring region. She responded well to this. The swelling she is noting on her upper abdominal wall is most likely the seperation of fascia of the linea alba. I talked about a diastasis and how to avoid increased strain to this region. I also tried some kinesiotape here which felt supportive to Diana Physical Therapy Plan Frequency and Duration Frequency of Treatment 1x/Week Duration of Treatment 8 Plan of Care Start Date 07/08/20 Plan of Care End Date 09/02/20 Therapeutic Interventions Therapeutic Interventions Home Exercise Program,Manual Therapy,Neuromuscular Re- education,Patient/Caregiver Education,Self-Care/Home Management,Soft Tissue Mobilization,Therapeutic Exercises Next Visit Focus/Plan Next Note Type Treatment Note Next Visit Plan continue to work on rib cage expansion and thoracic extension. Patient to continue to work on transverse abdominal stabilization for SI support and stabilization
--- NOTE | 2020-08-18 11:46 | PT.OTN ---
Current Diagnoses Low back pain (08/18/20) Encounter for supervision of normal , unspecified, unspecified trimester (08/18/20) Personal history of (healed) traumatic fracture (08/18/20) Physical Therapy Treatment Note PT-OP-A Visit Information Start: 05/13/20 12:52 Freq: Status: Active Protocol: Document 08/18/20 11:40 [facility] (Rec: 08/18/20 11:46 [facility] [email or web address]) Out-Patient Physical Therapy Visit Information Visit Information Visit Type Treatment Note Visit Start Time 10:30 Visit Stop Time 11:15 Total Visit Minutes 45 Visit Number 11 PT-OP-B Current Condition Start: 05/13/20 12:52 Freq: Status: Active Protocol: Document 05/13/20 15:17 [facility] (Rec: 05/13/20 15:25 [facility] [id number]) Current Condition History of Current Condition Onset Date 15 years old History of Current Condition Diana reports her symptoms began at 15 years old 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 At 19 years old she was in college running track, she was having pain in the inner thigh pelvis region. She began having so much pain with running she would limp. MFR showed a fracture in her right side. Since the hip fracture she has had stiffness. SHe is now with twins and is noticing that both hips are starting to hurt and she is experiencing pain into her gluteal region. She will be 10 weeks on Sunday. Diana reports she is walking 2-3 times per week for exercise and notes some increase in tightness in her back with walking now. Her pain is rated 2/10 but she really wants to do PT as a prevention for increased pain during her . Treatment Goals Patient/Caregiver Goals pt's goals include preventing pain and instability with her and learning stretching Current Functional Impairments (Reported) Functional Limitations- ADL's Pt is perfoming all usual ADL' s PT-OP-C Subjective Start: 05/13/20 12:52 Freq: Status: Active Protocol: Document 08/18/20 11:40 [facility] (Rec: 08/18/20 11:46 [facility] [email or web address]) OP-PT Subjective Patient Comments Patient Comments Diana describes increased rib pain on the right and also more pulling pain on the right pelvis region. She points to her ishium for the pain she is feeling. PT-OP-J Posture/Palpation/Skin Start: 05/13/20 12:52 Freq: Status: Active Protocol: Document 05/13/20 15:15 [facility] (Rec: 05/18/20 08:54 [facility] [email or web address]) Posture Evaluation Comments Posture Comments increased lordosis in standing with visable hypertrophy of the lumbar paraspinals, pelvis anteriorly rotated bilaterally Palpation Assessment Location ASIS B Palpation Location ASIS BILATERALLY Palpation Findings Soft Tissue Tightness, Tenderness Palpation Details tenderness R>L ASIS and the quadriceps attachment promimally, tightness in the quadriceps muscle PT-OP-K Range of Motion Start: 05/13/20 12:52 Freq: Status: Active Protocol: Document 05/13/20 15:15 [facility] (Rec: 05/18/20 08:54 [facility] [email or web address]) Lumbar Spine Range of Motion Lumbar Spine Active Testing Position Standing Flexion 40 Lateral Flexion Left 10 Lateral Flexion Right 10 ROM Limitations Soft Tissue Tightness,Pain Comments lumbar spine ROM limited into flexion at 40 degrees Hip Goniometric Range of Motion Hip Right Testing Position Supine Straight Leg Raise 45 Extension 5 Internal Rotation 10 Hip ROM Limitations Hip ROM Limitations Soft Tissue Tightness Comments iliospoas tightness on the right, + juliano test position on the right, limited hip extension on the right vs the left, pain with hip IR on the right. PT-OP-M Strength Start: 05/13/20 12:52 Freq: Status: Active Protocol: Document 05/18/20 17:31 [facility] (Rec: 05/18/20 17:33 [facility] [id number]) Trunk Strength Trunk Manual Muscle Testing Core Stabilization + ASLR test on the right with SI joint on the left unlocking , decreased ability to contract the Transverse abdominals and pelvic floor with external pelvic floor assessment PT-OP-Q Treatments Start: 05/13/20 12:52 Freq: Status: Active Protocol: Document 08/18/20 11:40 [facility] (Rec: 08/18/20 11:46 [facility] [email or web address]) Therapeutic Exercises Other Exercises quadruped thoracic rotation Other Exercise Name quadruped thoracic rotation child's pose Other Exercise Name lat stretch w/ side bend quadruped TA activation Other Exercise Name quadruped TA activation Reps/Minutes x 10 quadruped sidebend Other Exercise Name quadruped lat stretch forward and sidebend Side bilateral Resistance AROM Reps/Minutes 2 min quadruped cat cow Other Exercise Name quadruped cat/cow and tail wag Manual Therapy Treatment Soft Tissue Mobilization R lateral intercostals Body Location lower lateral intercostals Mobilization Type Sustained Pressure,Other Intensity/Depth Moderate Body Position Sidelying Comments elevated supine and L sidelying MWM & diaphramatic breath thoracic spine STM Body Location thoracic parapsinal massage Body Position seated Comments seated in chair with arms over the plinth Manual Techniques gentle thoracic mobilization Type grade 2 thoracic mobilizations Comments in left sidelying PT-OP-T Assessment and Plan Start: 05/13/20 12:52 Freq: Status: Active Protocol: Document 08/18/20 11:40 [facility] (Rec: 08/18/20 11:46 [facility] [email or web address]) Physical Therapy Assessment Assessment Summary Assessment Diana didn't feel the tape made a big difference for her. She is trying to stretch and continues to work on TA stabilization. She is tight in the intercostals on the right, we talked about sitting position as she tends to sit with a slight lean to the right Physical Therapy Plan Frequency and Duration Frequency of Treatment 1x/Week Duration of Treatment 8 Plan of Care Start Date 07/08/20 Plan of Care End Date 09/02/20 Therapeutic Interventions Therapeutic Interventions Home Exercise Program,Manual Therapy,Neuromuscular Re- education,Patient/Caregiver Education,Self-Care/Home Management,Soft Tissue Mobilization,Therapeutic Exercises Next Visit Focus/Plan Next Note Type Treatment Note Next Visit Plan continue to work on rib cage expansion and thoracic extension. Patient to continue to work on transverse abdominal stabilization for SI support and stabilization
--- NOTE | 2020-08-24 16:54 | PT.OTN ---
Current Diagnoses Low back pain (08/24/20) Encounter for supervision of normal , unspecified, unspecified trimester (08/24/20) Personal history of (healed) traumatic fracture (08/24/20) Physical Therapy Treatment Note PT-OP-A Visit Information Start: 05/13/20 12:52 Freq: Status: Active Protocol: Document 08/24/20 16:45 AMH (Rec: 08/24/20 16:54 AMH [id number]) Out-Patient Physical Therapy Visit Information Visit Information Visit Type Treatment Note Visit Start Time 10:30 Visit Stop Time 11:15 Total Visit Minutes 45 Visit Number 12 PT-OP-B Current Condition Start: 05/13/20 12:52 Freq: Status: Active Protocol: Document 05/13/20 15:17 AMH (Rec: 05/13/20 15:25 AMH [id number]) Current Condition History of Current Condition Onset Date 15 years old History of Current Condition 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 At 19 years old she was in college running track, she was having pain in the inner thigh pelvis region. She began having so much pain with running she would limp. MFR showed a fracture in her right side. Since the hip fracture she has had stiffness. SHe is now with twins and is noticing that both hips are starting to hurt and she is experiencing pain into her gluteal region. She will be 10 weeks on Sunday. Diana reports she is walking 2-3 times per week for exercise and notes some increase in tightness in her back with walking now. Her pain is rated 2/10 but she really wants to do PT as a prevention for increased pain during her . Treatment Goals Patient/Caregiver Goals pt's goals include preventing pain and instability with her and learning stretching Current Functional Impairments (Reported) Functional Limitations- ADL's Pt is perfoming all usual ADL' s PT-OP-C Subjective Start: 05/13/20 12:52 Freq: Status: Active Protocol: Document 08/24/20 16:45 AMH (Rec: 08/24/20 16:54 AMH [id number]) OP-PT Subjective Patient Comments Patient Comments Diana notes continued pain at the right rib cage and notes numbness in the fascia (near the linea alba. She is also still having pain near the ischum on the right pelvis. It does not increase with walking at this time but with lifting up her leg especially in bed. PT-OP-J Posture/Palpation/Skin Start: 05/13/20 12:52 Freq: Status: Active Protocol: Document 05/13/20 15:15 AMH (Rec: 05/18/20 08:54 AMH [email or web address]) Posture Evaluation Comments Posture Comments increased lordosis in standing with visable hypertrophy of the lumbar paraspinals, pelvis anteriorly rotated bilaterally Palpation Assessment Location ASIS B Palpation Location ASIS BILATERALLY Palpation Findings Soft Tissue Tightness, Tenderness Palpation Details tenderness R>L ASIS and the quadriceps attachment promimally, tightness in the quadriceps muscle PT-OP-K Range of Motion Start: 05/13/20 12:52 Freq: Status: Active Protocol: Document 05/13/20 15:15 AMH (Rec: 05/18/20 08:54 AMH [email or web address]) Lumbar Spine Range of Motion Lumbar Spine Active Testing Position Standing Flexion 40 Lateral Flexion Left 10 Lateral Flexion Right 10 ROM Limitations Soft Tissue Tightness,Pain Comments lumbar spine ROM limited into flexion at 40 degrees Hip Goniometric Range of Motion Hip Right Testing Position Supine Straight Leg Raise 45 Extension 5 Internal Rotation 10 Hip ROM Limitations Hip ROM Limitations Soft Tissue Tightness Comments iliospoas tightness on the right, + juliano test position on the right, limited hip extension on the right vs the left, pain with hip IR on the right. PT-OP-M Strength Start: 05/13/20 12:52 Freq: Status: Active Protocol: Document 05/18/20 17:31 AMH (Rec: 05/18/20 17:33 AMH [id number]) Trunk Strength Trunk Manual Muscle Testing Core Stabilization + ASLR test on the right with SI joint on the left unlocking , decreased ability to contract the Transverse abdominals and pelvic floor with external pelvic floor assessment PT-OP-Q Treatments Start: 05/13/20 12:52 Freq: Status: Active Protocol: Document 08/24/20 16:45 AMH (Rec: 08/24/20 16:54 AMH [id number]) Therapeutic Exercises Sitting Exercises seated hamstring stretch Sitting Exercise Name seated hamstring stretch Standing Exercises door way stretch Standing Exercise Name standing doorway chest stretch Other Exercises quadruped TA activation Other Exercise Name quadruped TA activation Reps/Minutes x 10 Manual Therapy Treatment Soft Tissue Mobilization R lateral intercostals Body Location lower lateral intercostals Mobilization Type Sustained Pressure,Other Intensity/Depth Moderate Body Position Sidelying Comments elevated supine and L sidelying MWM & diaphramatic breath thoracic spine STM Body Location thoracic parapsinal massage Body Position seated Comments seated in chair with arms over the plinth Joint Mobilizations Thoracic PA mobs Joint Thoracic T4-T 10 PA glides Grade II Body Position Sidelying Manual Techniques sidelying scapular mobilizations Type sidelying scapular mobilizations in Comments Pt notes thoracic tightness with this as it feels blocked, manual hamstring stretch Type manual hamstring stretch PT-OP-T Assessment and Plan Start: 05/13/20 12:52 Freq: Status: Active Protocol: Document 08/24/20 16:45 AMH (Rec: 08/24/20 16:54 AMH [id number]) Physical Therapy Assessment Assessment Summary Assessment The thoracic spine tightness is most likely contributing to rib pain. SHe is hypomobile on the right T spine T4-T10, I added in door way stretch along with her foam roll stretches. Add in standing wall slides next visit. The pelvic pain appears to be coming from the ischium region . I educated Diana on bracing with her core prior to lifting her leg in bed and this did seem to help a little bit Physical Therapy Plan Frequency and Duration Frequency of Treatment 1x/Week Duration of Treatment 8 Plan of Care Start Date 07/08/20 Plan of Care End Date 09/02/20 Next Visit Focus/Plan Next Note Type Treatment Note Next Visit Plan add standing wall slides next visit
--- NOTE | 2020-09-01 14:01 | PT.OTN ---
Current Diagnoses Low back pain (09/01/20) Encounter for supervision of normal , unspecified, unspecified trimester (09/01/20) Personal history of (healed) traumatic fracture (09/01/20) Physical Therapy Treatment Note PT-OP-A Visit Information Start: 05/13/20 12:52 Freq: Status: Active Protocol: Document 09/01/20 13:48 AMH (Rec: 09/01/20 14:00 AMH [email or web address]) Out-Patient Physical Therapy Visit Information Visit Information Visit Type Treatment Note Visit Start Time 09:45 Visit Stop Time 10:30 Total Visit Minutes 45 Visit Number 13 PT-OP-B Current Condition Start: 05/13/20 12:52 Freq: Status: Active Protocol: Document 05/13/20 15:17 AMH (Rec: 05/13/20 15:25 AMH [id number]) Current Condition History of Current Condition Onset Date 15 years old History of Current Condition Diana reports her symptoms began at 15 years old 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 At 19 years old she was in college running track, she was having pain in the inner thigh pelvis region. She began having so much pain with running she would limp. MFR showed a fracture in her right side. Since the hip fracture she has had stiffness. SHe is now with twins and is noticing that both hips are starting to hurt and she is experiencing pain into her gluteal region. She will be 10 weeks on Sunday. Diana reports she is walking 2-3 times per week for exercise and notes some increase in tightness in her back with walking now. Her pain is rated 2/10 but she really wants to do PT as a prevention for increased pain during her . Treatment Goals Patient/Caregiver Goals pt's goals include preventing pain and instability with her and learning stretching Current Functional Impairments (Reported) Functional Limitations- ADL's Pt is perfoming all usual ADL' s PT-OP-C Subjective Start: 05/13/20 12:52 Freq: Status: Active Protocol: Document 09/01/20 13:48 AMH (Rec: 09/01/20 14:00 AMH [email or web address]) OP-PT Subjective Patient Comments Patient Comments Diana reports she is still feeling the rib cage pain. She does get some relief with manual therapy treatments PT-OP-J Posture/Palpation/Skin Start: 05/13/20 12:52 Freq: Status: Active Protocol: Document 05/13/20 15:15 AMH (Rec: 05/18/20 08:54 AMH [email or web address]) Posture Evaluation Comments Posture Comments increased lordosis in standing with visable hypertrophy of the lumbar paraspinals, pelvis anteriorly rotated bilaterally Palpation Assessment Location ASIS B Palpation Location ASIS BILATERALLY Palpation Findings Soft Tissue Tightness, Tenderness Palpation Details tenderness R>L ASIS and the quadriceps attachment promimally, tightness in the quadriceps muscle PT-OP-K Range of Motion Start: 05/13/20 12:52 Freq: Status: Active Protocol: Document 05/13/20 15:15 AMH (Rec: 05/18/20 08:54 AMH [email or web address]) Lumbar Spine Range of Motion Lumbar Spine Active Testing Position Standing Flexion 40 Lateral Flexion Left 10 Lateral Flexion Right 10 ROM Limitations Soft Tissue Tightness,Pain Comments lumbar spine ROM limited into flexion at 40 degrees Hip Goniometric Range of Motion Hip Right Testing Position Supine Straight Leg Raise 45 Extension 5 Internal Rotation 10 Hip ROM Limitations Hip ROM Limitations Soft Tissue Tightness Comments iliospoas tightness on the right, + juliano test position on the right, limited hip extension on the right vs the left, pain with hip IR on the right. PT-OP-M Strength Start: 05/13/20 12:52 Freq: Status: Active Protocol: Document 05/18/20 17:31 AMH (Rec: 05/18/20 17:33 AMH [id number]) Trunk Strength Trunk Manual Muscle Testing Core Stabilization + ASLR test on the right with SI joint on the left unlocking , decreased ability to contract the Transverse abdominals and pelvic floor with external pelvic floor assessment PT-OP-Q Treatments Start: 05/13/20 12:52 Freq: Status: Active Protocol: Document 09/01/20 13:48 AMH (Rec: 09/01/20 14:00 AMH [email or web address]) Therapeutic Exercises Sidelying Exercises sidelying reach and pull Sidelying Exercise Name sidelying reach and pull exercise Manual Therapy Treatment Soft Tissue Mobilization R lateral intercostals Body Location lower lateral intercostals Mobilization Type Sustained Pressure,Other Intensity/Depth Moderate Body Position Sidelying Comments elevated supine and L sidelying MWM & diaphramatic breath thoracic spine STM Body Location thoracic parapsinal massage Body Position Prone Comments with pillow Joint Mobilizations Thoracic PA mobs Joint Thoracic T4-T 10 PA brandon Grade II Body Position Prone Manual Techniques sidelying scapular mobilizations Type sidelying scapular mobilizations in Comments Pt notes thoracic tightness with this as it feels blocked, PT-OP-T Assessment and Plan Start: 05/13/20 12:52 Freq: Status: Active Protocol: Document 09/01/20 13:48 AMH (Rec: 09/01/20 14:00 AMH [email or web address]) Physical Therapy Assessment Goals Four Impairment Decreased strength of the Transverse abdominals and pelvic floor Short Term Goal (STG) Diana is able to sustain a pelvic floor and transverse abdominal contraction for 10 second hold in sidelying. 06/15/20 Goal Met: able hold sustained 15 sec while sidelying. Pt commented difficult when doing standing activities to maintain, eg. hiking. STG Duration 5 weeks Three Impairment Tightness in the lumbar paraspinals with a increase in lumbar lordisis Machine Deburrer Goal (LTG) Diana is able to improve her lumbar flexion and decrease the amount of lordosis she goes into with her with specific exercises and manual therapy techniques to reduce anterior pelvic tilt. GOOD PROGESS LTG Duration 8 weeks + Two Impairment SI instability with and history of a pelvic fracture in 2008 Short Term Goal (STG) Diana is educated on both Transverse abdominal stabilization and pelvic floor stabilization to improve support to her SI and pelvis during pregnacy GOAL MET STG Duration 6 weeks One Impairment Low back pain rated 2/10 Short Term Goal (STG) Diana is educated in stretches exercises for her low back that she can do throughout her excellent progress and we are updating her exercises as she progresses with her . Snf Goal (LTG) Diana is able to continue walking 2-3 miles for exercise during her As of 09/01/20 Diana is still walking for exercise. Her pelvic pain she is experiencing does not increase with walking. LTG Duration 8 weeks + Progress Towards Goals Progress Comments Diana is able to maintain her exercises during . Her hip has been doing well. She is experiencing some posterior complaints of pelvic pain that seem to be near her ishium. She may have posterior pelvic floor muscle tightness. SHe continues to report right sided pain under her anterior rib cage. Thoracic mobilizations and postural exercises help some but this seems to be temporary relief. Assessment Summary Assessment Diana did well with prone thoracic mobilizations with the pillow. , found muscle spasms in the right serratus anterior muscle and lateral intercostals. I have encouraged Diana to continue working on opening her chest with door way stretch and her foam roll. She has been working on her exercises at home. She would benefit from continued PT visits Physical Therapy Plan Frequency and Duration Frequency of Treatment 1x/Week Duration of Treatment 8 Plan of Care Start Date 09/01/20 Plan of Care End Date 10/27/20 Next Visit Focus/Plan Next Note Type Treatment Note Next Visit Plan continue to work on rib cage expansion and thoracic extension
--- NOTE | 2020-09-01 14:01 | PT.OPPOC ---
Physical, Occupational & Speech Therapy At [facility] Current Diagnoses Low back pain (09/01/20) Encounter for supervision of normal , unspecified, unspecified trimester (09/01/20) Personal history of (healed) traumatic fracture (09/01/20) Visit Care Team Role Provider Type Pedrito Narvaez DO Primary Care Provider Non-Staff Specialty: [facility][1] Address: [address], [address] Email: Jessica Patel MD Attending Provider Physician Referring Provider Specialty: [facility][1] Address: [address], [address], [place], [address] Email: [email or web address] Plan Of Care PT-OP-T Assessment and Plan Start: 05/13/20 12:52 Freq: Status: Active Protocol: Document 09/01/20 13:48 AMH (Rec: 09/01/20 14:00 AMH [email or web address]) Physical Therapy Assessment Goals Four Impairment Decreased strength of the Transverse abdominals and pelvic floor Short Term Goal (STG) Diana is able to sustain a pelvic floor and transverse abdominal contraction for 10 second hold in sidelying. 06/15/20 Goal Met: able hold sustained 15 sec while sidelying. Pt commented difficult when doing standing activities to maintain, eg. hiking. STG Duration 5 weeks Three Impairment Tightness in the lumbar paraspinals with a increase in lumbar lordisis Jail Goal (LTG) Diana is able to improve her lumbar flexion and decrease the amount of lordosis she goes into with her with specific exercises and manual therapy techniques to reduce anterior pelvic tilt. GOOD PROGESS LTG Duration 8 weeks + Two Impairment SI instability with and history of a pelvic fracture in 2008 Short Term Goal (STG) Diana is educated on both Transverse abdominal stabilization and pelvic floor stabilization to improve support to her SI and pelvis during pregnacy GOAL MET STG Duration 6 weeks One Impairment Low back pain rated 2/10 Short Term Goal (STG) Diana is educated in stretches exercises for her low back that she can do throughout her excellent progress and we are updating her exercises as she progresses with her . Postpartum Rn Goal (LTG) Diana is able to continue walking 2-3 miles for exercise during her As of 09/01/20 Diana is still walking for exercise. Her pelvic pain she is experiencing does not increase with walking. LTG Duration 8 weeks + Progress Towards Goals Progress Comments Diana is able to maintain her exercises during . Her hip has been doing well. She is experiencing some posterior complaints of pelvic pain that seem to be near her ischium She may have posterior pelvic floor muscle tightness. She continues to report right sided pain under her anterior rib cage. Thoracic mobilizations and postural exercises help some but this seems to be temporary relief. Assessment Summary Assessment Today Diana did well with prone thoracic mobilizations with the pillow. , found muscle spasms in the right serratus anterior muscle and lateral intercostals. I have encouraged Diana to continue working on opening her chest with door way stretch and her foam roll. She has been working on her exercises at home. She would benefit from continued PT visits Physical Therapy Plan Frequency and Duration Frequency of Treatment 1x/Week Duration of Treatment 8 Plan of Care Start Date 09/01/20 Plan of Care End Date 10/27/20 Next Visit Focus/Plan Next Note Type Treatment Note Next Visit Plan continue to work on rib cage expansion and thoracic extension Plan of Care Dates Plan of Care Start Date 09/01/20 Plan of Care End Date 10/27/20 Electronically Signed by: Priya Springer, PT 09/01/20 [id number] Please Sign and Return: I have reviewed this Plan of Care and certify that the skilled therapy services above are required to meet the patient?s needs. Physician Signature Date Printed Name and Credentials Clinical Instructor Signature Printed Name and Credentials
--- NOTE | 2020-09-07 16:38 | PT.OTN ---
Current Diagnoses Low back pain (09/07/20) Encounter for supervision of normal , unspecified, unspecified trimester (09/07/20) Personal history of (healed) traumatic fracture (09/07/20) Physical Therapy Treatment Note PT-OP-A Visit Information Start: 05/13/20 12:52 Freq: Status: Active Protocol: Document 09/07/20 16:30 AMH (Rec: 09/07/20 16:37 AMH [email or web address]) Out-Patient Physical Therapy Visit Information Visit Information Visit Type Treatment Note Visit Start Time 09:45 Visit Stop Time 10:30 Total Visit Minutes 45 Visit Number 14 PT-OP-B Current Condition Start: 05/13/20 12:52 Freq: Status: Active Protocol: Document 05/13/20 15:17 AMH (Rec: 05/13/20 15:25 AMH [id number]) Current Condition History of Current Condition Onset Date 15 years old History of Current Condition Diana reports her symptoms began at 15 years old 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 At 19 years old she was in college running track, she was having pain in the inner thigh pelvis region. She began having so much pain with running she would limp. MFR showed a fracture in her right side. Since the hip fracture she has had stiffness. SHe is now with twins and is noticing that both hips are starting to hurt and she is experiencing pain into her gluteal region. She will be 10 weeks on Sunday. Diana reports she is walking 2-3 times per week for exercise and notes some increase in tightness in her back with walking now. Her pain is rated 2/10 but she really wants to do PT as a prevention for increased pain during her . Treatment Goals Patient/Caregiver Goals pt's goals include preventing pain and instability with her and learning stretching Current Functional Impairments (Reported) Functional Limitations- ADL's Pt is perfoming all usual ADL' s PT-OP-C Subjective Start: 05/13/20 12:52 Freq: Status: Active Protocol: Document 09/07/20 16:30 AMH (Rec: 09/07/20 16:37 AMH [email or web address]) OP-PT Subjective Patient Comments Patient Comments Diana reports today she feels like her babies have dropped. She reports still feeling the rib pain but manual therapy treatment really helped last visit. She also notes now she is feeling some pubic bone pain when standing getting dressed or turning over in bed . PT-OP-J Posture/Palpation/Skin Start: 05/13/20 12:52 Freq: Status: Active Protocol: Document 05/13/20 15:15 AMH (Rec: 05/18/20 08:54 AMH [email or web address]) Posture Evaluation Comments Posture Comments increased lordosis in standing with visable hypertrophy of the lumbar paraspinals, pelvis anteriorly rotated bilaterally Palpation Assessment Location ASIS B Palpation Location ASIS BILATERALLY Palpation Findings Soft Tissue Tightness, Tenderness Palpation Details tenderness R>L ASIS and the quadriceps attachment promimally, tightness in the quadriceps muscle PT-OP-K Range of Motion Start: 05/13/20 12:52 Freq: Status: Active Protocol: Document 05/13/20 15:15 AMH (Rec: 05/18/20 08:54 AMH [email or web address]) Lumbar Spine Range of Motion Lumbar Spine Active Testing Position Standing Flexion 40 Lateral Flexion Left 10 Lateral Flexion Right 10 ROM Limitations Soft Tissue Tightness,Pain Comments lumbar spine ROM limited into flexion at 40 degrees Hip Goniometric Range of Motion Hip Right Testing Position Supine Straight Leg Raise 45 Extension 5 Internal Rotation 10 Hip ROM Limitations Hip ROM Limitations Soft Tissue Tightness Comments iliospoas tightness on the right, + juliano test position on the right, limited hip extension on the right vs the left, pain with hip IR on the right. PT-OP-M Strength Start: 05/13/20 12:52 Freq: Status: Active Protocol: Document 05/18/20 17:31 AMH (Rec: 05/18/20 17:33 AMH [id number]) Trunk Strength Trunk Manual Muscle Testing Core Stabilization + ASLR test on the right with SI joint on the left unlocking , decreased ability to contract the Transverse abdominals and pelvic floor with external pelvic floor assessment PT-OP-Q Treatments Start: 05/13/20 12:52 Freq: Status: Active Protocol: Document 09/07/20 16:30 AMH (Rec: 09/07/20 16:37 AMH [email or web address]) Manual Therapy Treatment Soft Tissue Mobilization R lateral intercostals Body Location lower lateral intercostals Mobilization Type Sustained Pressure,Other Intensity/Depth Moderate Body Position Sidelying Comments elevated supine and L sidelying MWM & diaphramatic breath thoracic spine STM Body Location thoracic parapsinal massage Body Position Prone Comments with pillow lumbar paraspinals Body Location lumbar paraspinal muscles Body Position Prone Comments prone over body pillow, STM/MFR to the lumbar paraspinals. PT tight in her thoracic spine as well so adding in thoracic quadruped rotation may be helpful for her. Joint Mobilizations Thoracic PA mobs Joint Thoracic T4-T 10 PA glides Grade II Body Position Prone Manual Techniques sidelying scapular mobilizations Type sidelying scapular mobilizations in Comments Pt notes thoracic tightness with this as it feels blocked, PT-OP-T Assessment and Plan Start: 05/13/20 12:52 Freq: Status: Active Protocol: Document 09/07/20 16:30 AMH (Rec: 09/07/20 16:37 AMH [email or web address]) Physical Therapy Assessment Assessment Summary Assessment Diana tolerates prone mobilization with the pillow well and notes some relief following manual therapy techniques. We discussed using a pillow between her knees at night for rolling in bed and sitting to put on her shoes and socks Physical Therapy Plan Frequency and Duration Frequency of Treatment 1x/Week Duration of Treatment 8 Plan of Care Start Date 09/01/20 Plan of Care End Date 10/27/20 Therapeutic Interventions Therapeutic Interventions Home Exercise Program,Manual Therapy,Neuromuscular Re- education,Patient/Caregiver Education,Self-Care/Home Management,Soft Tissue Mobilization,Therapeutic Exercises
--- NOTE | 2020-09-28 12:31 | PT.OTN ---
Current Diagnoses Low back pain (09/28/20) Encounter for supervision of normal , unspecified, unspecified trimester (09/28/20) Personal history of (healed) traumatic fracture (09/28/20) Physical Therapy Treatment Note PT-OP-A Visit Information Start: 05/13/20 12:52 Freq: Status: Active Protocol: Document 09/28/20 12:12 [facility] (Rec: 09/28/20 12:31 [facility] [email or web address]) Out-Patient Physical Therapy Visit Information Visit Information Visit Type Treatment Note Visit Start Time 09:00 Visit Stop Time 09:45 Total Visit Minutes 45 Visit Number 15 PT-OP-B Current Condition Start: 05/13/20 12:52 Freq: Status: Active Protocol: Document 05/13/20 15:17 [facility] (Rec: 05/13/20 15:25 [facility] [id number]) Current Condition History of Current Condition Onset Date 15 years old History of Current Condition Diana reports her symptoms began at 15 years old 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 At 19 years old she was in college running track, she was having pain in the inner thigh pelvis region. She began having so much pain with running she would limp. MFR showed a fracture in her right side. Since the hip fracture she has had stiffness. SHe is now with twins and is noticing that both hips are starting to hurt and she is experiencing pain into her gluteal region. She will be 10 weeks on Sunday. Diana reports she is walking 2-3 times per week for exercise and notes some increase in tightness in her back with walking now. Her pain is rated 2/10 but she really wants to do PT as a prevention for increased pain during her . Treatment Goals Patient/Caregiver Goals pt's goals include preventing pain and instability with her and learning stretching Current Functional Impairments (Reported) Functional Limitations- ADL's Pt is perfoming all usual ADL' s PT-OP-C Subjective Start: 05/13/20 12:52 Freq: Status: Active Protocol: Document 09/28/20 09:05 [facility] (Rec: 09/28/20 09:07 [facility] [id number]) OP-PT Subjective Patient Comments Patient Comments pt reports rib pain is constant, stretching is are now as it is hard to get off the ground, turing at night is also really difficult. Patient Reported Progress Worse PT-OP-J Posture/Palpation/Skin Start: 05/13/20 12:52 Freq: Status: Active Protocol: Document 05/13/20 15:15 [facility] (Rec: 05/18/20 08:54 [facility] [email or web address]) Posture Evaluation Comments Posture Comments increased lordosis in standing with visable hypertrophy of the lumbar paraspinals, pelvis anteriorly rotated bilaterally Palpation Assessment Location ASIS B Palpation Location ASIS BILATERALLY Palpation Findings Soft Tissue Tightness, Tenderness Palpation Details tenderness R>L ASIS and the quadriceps attachment promimally, tightness in the quadriceps muscle PT-OP-K Range of Motion Start: 05/13/20 12:52 Freq: Status: Active Protocol: Document 05/13/20 15:15 [facility] (Rec: 05/18/20 08:54 [facility] [email or web address]) Lumbar Spine Range of Motion Lumbar Spine Active Testing Position Standing Flexion 40 Lateral Flexion Left 10 Lateral Flexion Right 10 ROM Limitations Soft Tissue Tightness,Pain Comments lumbar spine ROM limited into flexion at 40 degrees Hip Goniometric Range of Motion Hip Right Testing Position Supine Straight Leg Raise 45 Extension 5 Internal Rotation 10 Hip ROM Limitations Hip ROM Limitations Soft Tissue Tightness Comments iliospoas tightness on the right, + juliano test position on the right, limited hip extension on the right vs the left, pain with hip IR on the right. PT-OP-M Strength Start: 05/13/20 12:52 Freq: Status: Active Protocol: Document 05/18/20 17:31 [facility] (Rec: 05/18/20 17:33 [facility] [id number]) Trunk Strength Trunk Manual Muscle Testing Core Stabilization + ASLR test on the right with SI joint on the left unlocking , decreased ability to contract the Transverse abdominals and pelvic floor with external pelvic floor assessment PT-OP-Q Treatments Start: 05/13/20 12:52 Freq: Status: Active Protocol: Document 09/28/20 12:12 [facility] (Rec: 09/28/20 12:31 [facility] [email or web address]) Therapeutic Exercises Standing Exercises standing foam roller against the wall Standing Exercise Name standing foam roller Comments facing the wall, rolling the foam roller up the wall standing wall slides against the wall Standing Exercise Name standing wall slides against the wall Reps/Minutes x [address] Standing Exercise Name standing chest stretch in the doorway Manual Therapy Treatment Joint Mobilizations Thoracic PA mobs Joint Thoracic T4-T 10 PA glides Grade II Body Position seated Manual Techniques gentle rib cage mobiilzations Type sidelying gentle stretching over the rib cage Comments gentle rib cage mobilizations and stretches to open up the rib cage in sidelying sidelying scapular mobilizations Type sidelying scapular mobilizations in Comments Pt notes thoracic tightness with this as it feels blocked, PT-OP-T Assessment and Plan Start: 05/13/20 12:52 Freq: Status: Active Protocol: Document 09/28/20 12:12 [facility] (Rec: 09/28/20 12:31 [facility] [email or web address]) Physical Therapy Assessment Assessment Summary Assessment Diana is doing better overall in her pelvis but still experiencing a lot of pain in her rib cage on both sides. She is having more difficulty getting down onto the floor for her exercises. Today we worked on standing posture exercises against the wall and manual mobilzations for the thoracic spine and rib cage stretches. Pt had good tolerance in sidelying for stretches. She is 29 weeks along. Physical Therapy Plan Frequency and Duration Frequency of Treatment 1x/Week Duration of Treatment 8 Plan of Care Start Date 09/01/20 Plan of Care End Date 10/27/20 Therapeutic Interventions Therapeutic Interventions Home Exercise Program,Manual Therapy,Neuromuscular Re- education,Patient/Caregiver Education,Self-Care/Home Management,Soft Tissue Mobilization,Therapeutic Exercises Next Visit Focus/Plan Next Note Type Treatment Note Next Visit Plan continue to work on rib cage expansion and thoracic extension
--- NOTE | 2020-10-05 13:43 | PT.OTN ---
Current Diagnoses Low back pain (10/05/20) Encounter for supervision of normal , unspecified, unspecified trimester (10/05/20) Personal history of (healed) traumatic fracture (10/05/20) Physical Therapy Treatment Note PT-OP-A Visit Information Start: 05/13/20 12:52 Freq: Status: Active Protocol: Document 10/05/20 13:00 [facility] (Rec: 10/05/20 13:02 [facility] [email or web address]) Out-Patient Physical Therapy Visit Information Visit Information Visit Type Treatment Note Visit Start Time 09:45 Visit Stop Time 10:30 Total Visit Minutes 45 Visit Number 16 PT-OP-B Current Condition Start: 05/13/20 12:52 Freq: Status: Active Protocol: Document 05/13/20 15:17 [facility] (Rec: 05/13/20 15:25 [facility] [id number]) Current Condition History of Current Condition Onset Date 15 years old History of Current Condition Diana reports her symptoms began at 15 years old 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 At 19 years old she was in college running track, she was having pain in the inner thigh pelvis region. She began having so much pain with running she would limp. MFR showed a fracture in her right side. Since the hip fracture she has had stiffness. SHe is now with twins and is noticing that both hips are starting to hurt and she is experiencing pain into her gluteal region. She will be 10 weeks on Sunday. Diana reports she is walking 2-3 times per week for exercise and notes some increase in tightness in her back with walking now. Her pain is rated 2/10 but she really wants to do PT as a prevention for increased pain during her . Treatment Goals Patient/Caregiver Goals pt's goals include preventing pain and instability with her and learning stretching Current Functional Impairments (Reported) Functional Limitations- ADL's Pt is perfoming all usual ADL' s PT-OP-C Subjective Start: 05/13/20 12:52 Freq: Status: Active Protocol: Document 10/05/20 13:39 [facility] (Rec: 10/05/20 13:42 [facility] [id number]) OP-PT Subjective Patient Comments Patient Comments Diana reports she is at 30 weeks. She is still experiencing rib cage pain anterior and lateral. She notes she is doing pretty good with her pelvis and not experiencing pain here. She has cut way back on her walking now due to fatigue and needing to rest. PT-OP-J Posture/Palpation/Skin Start: 05/13/20 12:52 Freq: Status: Active Protocol: Document 05/13/20 15:15 [facility] (Rec: 05/18/20 08:54 [facility] [email or web address]) Posture Evaluation Comments Posture Comments increased lordosis in standing with visable hypertrophy of the lumbar paraspinals, pelvis anteriorly rotated bilaterally Palpation Assessment Location ASIS B Palpation Location ASIS BILATERALLY Palpation Findings Soft Tissue Tightness, Tenderness Palpation Details tenderness R>L ASIS and the quadriceps attachment promimally, tightness in the quadriceps muscle PT-OP-K Range of Motion Start: 05/13/20 12:52 Freq: Status: Active Protocol: Document 05/13/20 15:15 [facility] (Rec: 05/18/20 08:54 [facility] [email or web address]) Lumbar Spine Range of Motion Lumbar Spine Active Testing Position Standing Flexion 40 Lateral Flexion Left 10 Lateral Flexion Right 10 ROM Limitations Soft Tissue Tightness,Pain Comments lumbar spine ROM limited into flexion at 40 degrees Hip Goniometric Range of Motion Hip Right Testing Position Supine Straight Leg Raise 45 Extension 5 Internal Rotation 10 Hip ROM Limitations Hip ROM Limitations Soft Tissue Tightness Comments iliospoas tightness on the right, + juliano test position on the right, limited hip extension on the right vs the left, pain with hip IR on the right. PT-OP-M Strength Start: 05/13/20 12:52 Freq: Status: Active Protocol: Document 05/18/20 17:31 [facility] (Rec: 05/18/20 17:33 [facility] [id number]) Trunk Strength Trunk Manual Muscle Testing Core Stabilization + ASLR test on the right with SI joint on the left unlocking , decreased ability to contract the Transverse abdominals and pelvic floor with external pelvic floor assessment PT-OP-Q Treatments Start: 05/13/20 12:52 Freq: Status: Active Protocol: Document 10/05/20 13:39 [facility] (Rec: 10/05/20 13:42 [facility] [id number]) Manual Therapy Treatment Soft Tissue Mobilization R lateral intercostals Body Location lower lateral intercostals Mobilization Type Sustained Pressure,Other Intensity/Depth Moderate Body Position Sidelying Comments elevated supine and L sidelying MWM & diaphramatic breath Joint Mobilizations Thoracic PA mobs Joint Thoracic T4-T 10 PA glides Grade II Body Position seated Manual Techniques gentle rib cage mobiilzations Type sidelying gentle stretching over the rib cage Comments gentle rib cage mobilizations and stretches to open up the rib cage in sidelying sidelying scapular mobilizations Type sidelying scapular mobilizations in Comments Pt notes thoracic tightness with this as it feels blocked, PT-OP-T Assessment and Plan Start: 05/13/20 12:52 Freq: Status: Active Protocol: Document 10/05/20 13:39 [facility] (Rec: 10/05/20 13:42 [facility] [id number]) Physical Therapy Assessment Assessment Summary Assessment Good tolerance today for treatment and Diana felt that the pressure from the left side of her rib cage decreased some with treatment today. Physical Therapy Plan Frequency and Duration Frequency of Treatment 1x/Week Duration of Treatment 8 Plan of Care Start Date 09/01/20 Plan of Care End Date 10/27/20 Therapeutic Interventions Therapeutic Interventions Home Exercise Program,Manual Therapy,Neuromuscular Re- education,Patient/Caregiver Education,Self-Care/Home Management,Soft Tissue Mobilization,Therapeutic Exercises Next Visit Focus/Plan Next Note Type Treatment Note Next Visit Plan continue to work on rib cage expansion and thoracic extension. Pt will be 31 weeks next week.
--- NOTE | 2020-10-12 13:18 | PT.OTN ---
Current Diagnoses Low back pain (10/12/20) Encounter for supervision of normal , unspecified, unspecified trimester (10/12/20) Personal history of (healed) traumatic fracture (10/12/20) Physical Therapy Treatment Note PT-OP-A Visit Information Start: 05/13/20 12:52 Freq: Status: Active Protocol: Document 10/12/20 13:14 [facility] (Rec: 10/12/20 13:18 [facility] [email or web address]) Out-Patient Physical Therapy Visit Information Visit Information Visit Type Treatment Note Visit Start Time 09:45 Visit Stop Time 10:30 Total Visit Minutes 45 Visit Number 17 PT-OP-B Current Condition Start: 05/13/20 12:52 Freq: Status: Active Protocol: Document 05/13/20 15:17 [facility] (Rec: 05/13/20 15:25 [facility] [id number]) Current Condition History of Current Condition Onset Date 15 years old History of Current Condition Diana reports her symptoms began at 15 years old 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 At 19 years old she was in college running track, she was having pain in the inner thigh pelvis region. She began having so much pain with running she would limp. MFR showed a fracture in her right side. Since the hip fracture she has had stiffness. SHe is now with twins and is noticing that both hips are starting to hurt and she is experiencing pain into her gluteal region. She will be 10 weeks on Sunday. Diana reports she is walking 2-3 times per week for exercise and notes some increase in tightness in her back with walking now. Her pain is rated 2/10 but she really wants to do PT as a prevention for increased pain during her . Treatment Goals Patient/Caregiver Goals pt's goals include preventing pain and instability with her and learning stretching Current Functional Impairments (Reported) Functional Limitations- ADL's Pt is perfoming all usual ADL' s PT-OP-C Subjective Start: 05/13/20 12:52 Freq: Status: Active Protocol: Document 10/12/20 13:14 [facility] (Rec: 10/12/20 13:18 [facility] [email or web address]) OP-PT Subjective Patient Comments Patient Comments pt reports her pelvis has been doing fine. She has been able to walk a few times around 1.5 miles length and is tolerating well. Her rib cage is still painful and she feels pain more on the left side today under her left rib. Her babies are measuring 3# 11oz for her girl and 3#9 oz for her boy. PT-OP-J Posture/Palpation/Skin Start: 05/13/20 12:52 Freq: Status: Active Protocol: Document 05/13/20 15:15 [facility] (Rec: 05/18/20 08:54 [facility] [email or web address]) Posture Evaluation Comments Posture Comments increased lordosis in standing with visable hypertrophy of the lumbar paraspinals, pelvis anteriorly rotated bilaterally Palpation Assessment Location ASIS B Palpation Location ASIS BILATERALLY Palpation Findings Soft Tissue Tightness, Tenderness Palpation Details tenderness R>L ASIS and the quadriceps attachment promimally, tightness in the quadriceps muscle PT-OP-K Range of Motion Start: 05/13/20 12:52 Freq: Status: Active Protocol: Document 05/13/20 15:15 [facility] (Rec: 05/18/20 08:54 [facility] [email or web address]) Lumbar Spine Range of Motion Lumbar Spine Active Testing Position Standing Flexion 40 Lateral Flexion Left 10 Lateral Flexion Right 10 ROM Limitations Soft Tissue Tightness,Pain Comments lumbar spine ROM limited into flexion at 40 degrees Hip Goniometric Range of Motion Hip Right Testing Position Supine Straight Leg Raise 45 Extension 5 Internal Rotation 10 Hip ROM Limitations Hip ROM Limitations Soft Tissue Tightness Comments iliospoas tightness on the right, + juliano test position on the right, limited hip extension on the right vs the left, pain with hip IR on the right. PT-OP-M Strength Start: 05/13/20 12:52 Freq: Status: Active Protocol: Document 05/18/20 17:31 [facility] (Rec: 05/18/20 17:33 [facility] [id number]) Trunk Strength Trunk Manual Muscle Testing Core Stabilization + ASLR test on the right with SI joint on the left unlocking , decreased ability to contract the Transverse abdominals and pelvic floor with external pelvic floor assessment PT-OP-Q Treatments Start: 05/13/20 12:52 Freq: Status: Active Protocol: Document 10/12/20 13:14 [facility] (Rec: 10/12/20 13:18 [facility] [email or web address]) Manual Therapy Treatment Soft Tissue Mobilization R lateral intercostals Body Location lower lateral intercostals Mobilization Type Sustained Pressure,Other Intensity/Depth Moderate Body Position Sidelying Comments elevated supine and L sidelying MWM & diaphramatic breath Manual Techniques gentle rib cage mobiilzations Type sidelying gentle stretching over the rib cage Comments gentle rib cage mobilizations and stretches to open up the rib cage in sidelying sidelying scapular mobilizations Type sidelying scapular mobilizations in Comments Pt notes thoracic tightness with this as it feels blocked, PT-OP-T Assessment and Plan Start: 05/13/20 12:52 Freq: Status: Active Protocol: Document 10/12/20 13:14 [facility] (Rec: 10/12/20 13:18 [facility] [email or web address]) Physical Therapy Plan Frequency and Duration Frequency of Treatment 1x/Week Duration of Treatment 8 Plan of Care Start Date 09/01/20 Plan of Care End Date 10/27/20 Therapeutic Interventions Therapeutic Interventions Home Exercise Program,Manual Therapy,Neuromuscular Re- education,Patient/Caregiver Education,Self-Care/Home Management,Soft Tissue Mobilization,Therapeutic Exercises Next Visit Focus/Plan Next Note Type Treatment Note Next Visit Plan continue to work on rib cage expansion and thoracic extension. Pt will be 32 weeks next week.
--- NOTE | 2020-10-20 14:16 | PT.OPPOC ---
Physical, Occupational & Speech Therapy At [facility] Current Diagnoses Low back pain (10/20/20) Encounter for supervision of normal , unspecified, unspecified trimester (10/20/20) Personal history of (healed) traumatic fracture (10/20/20) Visit Care Team Role Provider Type Pedrito Narvaez DO Primary Care Provider Non-Staff Specialty: Family [facility] Address: [address], [address] Email: Jessica Patel MD Attending Provider Physician Referring Provider Specialty: [facility] Address: [address], [address], [place], [address] Email: [email or web address] Plan Of Care PT-OP-T Assessment and Plan Start: 05/13/20 12:52 Freq: Status: Active Protocol: Document 10/20/20 14:09 [facility] (Rec: 10/20/20 14:15 [facility] [email or web address]) Physical Therapy Assessment Goals anterior rib cage pain with Impairment anterior rib cage pain with Short Term Goal (STG) With manual therapy techniques Diana is able to gain some relief of her pain in the anterior rib cage region STG Duration 5 weeks Four Impairment Decreased strength of the Transverse abdominals and pelvic floor Short Term Goal (STG) Diana is able to sustain a pelvic floor and transverse abdominal contraction for 10 second hold in sidelying. 06/15/20 Goal Met: able hold sustained 15 sec while sidelying. Pt commented difficult when doing standing activities to maintain, eg. hiking. Good progress but at this time Diana has stopped hiking due to how far along she is with her STG Duration 5 weeks Three Impairment Tightness in the lumbar paraspinals with a increase in lumbar lordisis Heater Operator Goal (LTG) Diana is able to improve her lumbar flexion and decrease the amount of lordosis she goes into with her with specific exercises and manual therapy techniques to reduce anterior pelvic tilt. GOOD PROGESS LTG Duration 8 weeks + Two Impairment SI instability with and history of a pelvic fracture in 2008 Short Term Goal (STG) Diana is educated on both Transverse abdominal stabilization and pelvic floor stabilization to improve support to her SI and pelvis during GOAL MET STG Duration 6 weeks One Impairment Low back pain rated 2/10 Short Term Goal (STG) Diana is educated in stretches exercises for her low back that she can do throughout her excellent progress and we are updating her exercises as she progresses with her . GOAL MET Heater Operator Goal (LTG) Diana is able to continue walking 2-3 miles for exercise during her As of 09/01/20 Diana is still walking for exercise. Her pelvic pain she is experiencing does not increase with walking. No complaints of pelvic pain at this time. Walking is limited due to fatigue LTG Duration 8 weeks + Assessment Summary Assessment Diana has continued to note pain in the area of the anterior rib cage. She finds PT helps her symptoms and we have been working on thoracic mobility and stretching for the anterior chest. She denies any pelvic pain at this time. Diana would like to continue PT for the remainder of her . She would benefit from continued PT as she is getting temporary pain relief. Physical Therapy Plan Frequency and Duration Frequency of Treatment 1x/Week Duration of Treatment 8 Plan of Care Start Date 10/20/20 Plan of Care End Date 12/15/20 Next Visit Focus/Plan Next Note Type Treatment Note Next Visit Plan continue to work on rib cage expansion and thoracic extension. Pt will be 33 weeks next week. Plan of Care Dates Plan of Care Start Date 10/20/20 Plan of Care End Date 12/15/20 Electronically Signed by: Priya Springer, PT 10/20/20 5020 Please Sign and Return: I have reviewed this Plan of Care and certify that the skilled therapy services above are required to meet the patient?s needs. Physician Signature Date Printed Name and Credentials Clinical Instructor Signature Printed Name and Credentials
--- NOTE | 2020-10-20 14:18 | PT.OTN ---
Current Diagnoses Low back pain (10/20/20) Encounter for supervision of normal , unspecified, unspecified trimester (10/20/20) Personal history of (healed) traumatic fracture (10/20/20) Physical Therapy Treatment Note PT-OP-A Visit Information Start: 05/13/20 12:52 Freq: Status: Active Protocol: Document 10/20/20 11:59 [facility] (Rec: 10/20/20 11:59 [facility] [email or web address]) Out-Patient Physical Therapy Visit Information Visit Information Visit Type Progress Note Visit Start Time 12:00 Visit Stop Time 12:45 Total Visit Minutes 45 Visit Number 18 PT-OP-B Current Condition Start: 05/13/20 12:52 Freq: Status: Active Protocol: Document 05/13/20 15:17 [facility] (Rec: 05/13/20 15:25 [facility] [email or web address]) Current Condition History of Current Condition Onset Date 15 years old History of Current Condition Diana reports her symptoms began at 15 years old 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 At 19 years old she was in college running track, she was having pain in the inner thigh pelvis region. She began having so much pain with running she would limp. MFR showed a fracture in her right side. Since the hip fracture she has had stiffness. SHe is now with twins and is noticing that both hips are starting to hurt and she is experiencing pain into her gluteal region. She will be 10 weeks on Sunday. Diana reports she is walking 2-3 times per week for exercise and notes some increase in tightness in her back with walking now. Her pain is rated 2/10 but she really wants to do PT as a prevention for increased pain during her . Treatment Goals Patient/Caregiver Goals pt's goals include preventing pain and instability with her and learning stretching Current Functional Impairments (Reported) Functional Limitations- ADL's Pt is perfoming all usual ADL' s PT-OP-C Subjective Start: 05/13/20 12:52 Freq: Status: Active Protocol: Document 10/20/20 12:00 [facility] (Rec: 10/20/20 12:04 [facility] [id number]) OP-PT Subjective Patient Comments Patient Comments Pt notes she ended up in the labor and delivery for dizzyness on Sunday. She felt like she was going to pass out, she is slightly anemic but they couldn't find anything else going on. She woke up yesterday seeing spots and didn't feel like she could drive. Still feeling the pain under her ribs. Her pelvis feels find and both babies are head down. She is 32 weeks. PT-OP-J Posture/Palpation/Skin Start: 05/13/20 12:52 Freq: Status: Active Protocol: Document 05/13/20 15:15 [facility] (Rec: 05/18/20 08:54 [facility] [email or web address]) Posture Evaluation Comments Posture Comments increased lordosis in standing with visable hypertrophy of the lumbar paraspinals, pelvis anteriorly rotated bilaterally Palpation Assessment Location ASIS B Palpation Location ASIS BILATERALLY Palpation Findings Soft Tissue Tightness, Tenderness Palpation Details tenderness R>L ASIS and the quadriceps attachment promimally, tightness in the quadriceps muscle PT-OP-K Range of Motion Start: 05/13/20 12:52 Freq: Status: Active Protocol: Document 05/13/20 15:15 [facility] (Rec: 05/18/20 08:54 [facility] [email or web address]) Lumbar Spine Range of Motion Lumbar Spine Active Testing Position Standing Flexion 40 Lateral Flexion Left 10 Lateral Flexion Right 10 ROM Limitations Soft Tissue Tightness,Pain Comments lumbar spine ROM limited into flexion at 40 degrees Hip Goniometric Range of Motion Hip Right Testing Position Supine Straight Leg Raise 45 Extension 5 Internal Rotation 10 Hip ROM Limitations Hip ROM Limitations Soft Tissue Tightness Comments iliospoas tightness on the right, + juliano test position on the right, limited hip extension on the right vs the left, pain with hip IR on the right. PT-OP-M Strength Start: 05/13/20 12:52 Freq: Status: Active Protocol: Document 05/18/20 17:31 [facility] (Rec: 05/18/20 17:33 [facility] [id number]) Trunk Strength Trunk Manual Muscle Testing Core Stabilization + ASLR test on the right with SI joint on the left unlocking , decreased ability to contract the Transverse abdominals and pelvic floor with external pelvic floor assessment PT-OP-Q Treatments Start: 05/13/20 12:52 Freq: Status: Active Protocol: Document 10/20/20 14:09 [facility] (Rec: 10/20/20 14:15 [facility] [email or web address]) Manual Therapy Treatment Soft Tissue Mobilization R lateral intercostals Body Location lower lateral intercostals Mobilization Type Sustained Pressure,Other Intensity/Depth Moderate Body Position Sidelying Comments elevated supine and L sidelying MWM & diaphramatic breath thoracic spine STM Body Location thoracic parapsinal massage Body Position Prone Comments with pillow Manual Techniques gentle rib cage mobiilzations Type sidelying gentle stretching over the rib cage Comments gentle rib cage mobilizations and stretches to open up the rib cage in sidelying sidelying scapular mobilizations Type sidelying scapular mobilizations in Comments Pt notes thoracic tightness with this as it feels blocked, PT-OP-T Assessment and Plan Start: 05/13/20 12:52 Freq: Status: Active Protocol: Document 10/20/20 14:09 [facility] (Rec: 10/20/20 14:15 [facility] [email or web address]) Physical Therapy Assessment Goals anterior rib cage pain with Impairment anterior rib cage pain with Short Term Goal (STG) With manual therapy techniques Diana is able to gain some relief of her pain in the anterior rib cage region STG Duration 5 weeks Four Impairment Decreased strength of the Transverse abdominals and pelvic floor Short Term Goal (STG) Diana is able to sustain a pelvic floor and transverse abdominal contraction for 10 second hold in sidelying. 06/15/20 Goal Met: able hold sustained 15 sec while sidelying. Pt commented difficult when doing standing activities to maintain, eg. hiking. Good progress but at this time Diana has stopped hiking due to how far along she is with her STG Duration 5 weeks Three Impairment Tightness in the lumbar paraspinals with a increase in lumbar lordisis Set Up Operator Tool Goal (LTG) Diana is able to improve her lumbar flexion and decrease the amount of lordosis she goes into with her with specific exercises and manual therapy techniques to reduce anterior pelvic tilt. GOOD PROGESS LTG Duration 8 weeks + Two Impairment SI instability with and history of a pelvic fracture in 2008 Short Term Goal (STG) Diana is educated on both Transverse abdominal stabilization and pelvic floor stabilization to improve support to her SI and pelvis during pregnacy GOAL MET STG Duration 6 weeks One Impairment Low back pain rated 2/10 Short Term Goal (STG) Diana is educated in stretches exercises for her low back that she can do throughout her excellent progress and we are updating her exercises as she progresses with her . GOAL MET Set Up Operator Tool Goal (LTG) Diana is able to continue walking 2-3 miles for exercise during her As of 09/01/20 Diana is still walking for exercise. Her pelvic pain she is experiencing does not increase with walking. No complaints of pelvic pain at this time. Walking is limited due to fatigue LTG Duration 8 weeks + Assessment Summary Assessment Diana has continued to note pain in the area of the anterior rib cage. She finds PT helps her symptoms and we have been working on thoracic mobility and stretching for the anterior chest. She denies any pelvic pain at this time. Diana would like to continue PT for the remainder of her . She would benefit from continued PT as she is getting temporary pain relief. Physical Therapy Plan Frequency and Duration Frequency of Treatment 1x/Week Duration of Treatment 8 Plan of Care Start Date 10/20/20 Plan of Care End Date 12/15/20 Next Visit Focus/Plan Next Note Type Treatment Note Next Visit Plan continue to work on rib cage expansion and thoracic extension. Pt will be 33 weeks next week.
--- NOTE | 2021-01-25 14:21 | PT.OPDS ---
Current Diagnoses Low back pain (10/20/20) Encounter for supervision of normal , unspecified, unspecified trimester (10/20/20) Personal history of (healed) traumatic fracture (10/20/20) Visit Care Team Role Provider Type Pedrito Narvaez DO Primary Care Provider Non-Staff Specialty: Family Practice Address: [address] [place] [address], [phone] Email: Jessica Patel MD Attending Provider Physician Referring Provider Specialty: Family Practice Address: [address] [place] [address], [place], [address] Email: [email or web address] Visit Number Visit Number [id number] Discharge Summary PT-OP-B Current Condition Start: 05/13/20 12:52 Freq: Status: Active Protocol: Document 05/13/20 15:17 [facility] (Rec: 05/13/20 15:25 [facility] [id number]) Current Condition History of Current Condition Onset Date 15 years old History of Current Condition Diana reports her symptoms began at 15 years old running track [facility], She reports having a freak accident and broke left hip where the growth plate came together She has had residual stiffness and pain in her left hip. At 19 years old she was in college running track, she was having pain in the inner thigh pelvis region. She began having so much pain with running she would limp. MFR showed a fracture in her right side. Since the hip fracture she has had stiffness. SHe is now with twins and is noticing that both hips are starting to hurt and she is experiencing pain into her gluteal region. She will be 10 weeks on Sunday. Diana reports she is walking 2-3 times per week for exercise and notes some increase in tightness in her back with walking now. Her pain is rated 2/10 but she really wants to do PT as a prevention for increased pain during her . Treatment Goals Patient/Caregiver Goals pt's goals include preventing pain and instability with her and learning stretching Current Functional Impairments (Reported) Functional Limitations- ADL's Pt is perfoming all usual ADL' s PT-OP-C Subjective Start: 05/13/20 12:52 Freq: Status: Active Protocol: Document 10/20/20 12:00 [facility] (Rec: 10/20/20 12:04 [facility] [id number]) OP-PT Subjective Patient Comments Patient Comments Pt notes she ended up in the labor and delivery for dizzyness on Sunday. She felt like she was going to pass out, she is slightly anemic but they couldn't find anything else going on. She woke up yesterday seeing spots and didn't feel like she could drive. Still feeling the pain under her ribs. Her pelvis feels find and both babies are head down. She is 32 weeks. PT-OP-J Posture/Palpation/Skin Start: 05/13/20 12:52 Freq: Status: Active Protocol: Document 05/13/20 15:15 [facility] (Rec: 05/18/20 08:54 [facility] [id number]) Posture Evaluation Comments Posture Comments increased lordosis in standing with visable hypertrophy of the lumbar paraspinals, pelvis anteriorly rotated bilaterally Palpation Assessment Location ASIS B Palpation Location ASIS BILATERALLY Palpation Findings Soft Tissue Tightness, Tenderness Palpation Details tenderness R>L ASIS and the quadriceps attachment promimally, tightness in the quadriceps muscle PT-OP-K Range of Motion Start: 05/13/20 12:52 Freq: Status: Active Protocol: Document 05/13/20 15:15 [facility] (Rec: 05/18/20 08:54 [facility] [id number]) Lumbar Spine Range of Motion Lumbar Spine Active Testing Position Standing Flexion 40 Lateral Flexion Left 10 Lateral Flexion Right 10 ROM Limitations Soft Tissue Tightness,Pain Comments lumbar spine ROM limited into flexion at 40 degrees Hip Goniometric Range of Motion Hip Right Testing Position Supine Straight Leg Raise 45 Extension 5 Internal Rotation 10 Hip ROM Limitations Hip ROM Limitations Soft Tissue Tightness Comments iliospoas tightness on the right, + juliano test position on the right, limited hip extension on the right vs the left, pain with hip IR on the right. PT-OP-M Strength Start: 05/13/20 12:52 Freq: Status: Active Protocol: Document 05/18/20 17:31 [facility] (Rec: 05/18/20 17:33 [facility] [id number]) Trunk Strength Trunk Manual Muscle Testing Core Stabilization + ASLR test on the right with SI joint on the left unlocking , decreased ability to contract the Transverse abdominals and pelvic floor with external pelvic floor assessment PT-OP-T Assessment and Plan Start: 05/13/20 12:52 Freq: Status: Active Protocol: Document 01/25/21 14:20 [facility] (Rec: 01/25/21 14:21 [facility] [id number]) Physical Therapy Assessment Assessment Summary Assessment Diana has not been seen since she had her babies. She will be discharged at this time. Physical Therapy Plan Discharge Physical Therapy Discharge Reasons Change in Medical Status
== END 2021-01-26 10:41 | disposition home or self-care (01) ==
LOC: PHYS 12:00
PROVIDERS: PCP Family Medicine; Referring Provider Family Medicine; Visit Provider Family Medicine
DX: Z34.90 Encounter for supervision of normal pregnancy, unspecified, unspecified trimester (principal); Z87.81 Personal history of (healed) traumatic fracture; M54.5 Low back pain
CPT/HCPCS: 97110; 97140; 97161

== ENCOUNTER 2020-10-27 20:21 | Observation (INO) | payer OTHER, SELFPAY ==
--- NOTE | 2020-10-27 20:24 | DI.US.S_ITS ---
PROCEDURE: US OB LIMITED INDICATIONS: CERVICAL LENGTH; TWINS OUTSIDE/PRIOR DATING DATA: Last menstrual period (LMP): Not available. LMP-based estimated date of delivery (RAJAN): n.a. First dating scan (date and location): not availabl. Estimated date of delivery (RAJAN) from first dating scan: Not available. TECHNIQUE: Real-time scanning was performed of the fetuses, with image documentation and biometric measurements. Endovaginal scanning: Not performed COMPARISON: None. FINDINGS: General: Intrauterine dichorionic-diamniotic twin . Amniotic fluid index (composite): 10 cm for twin a and 6 cm for 10 be. Cervix: 2.6 cm long. Normal lower limit is 2.5 cm. FETUS A: Fetus is located on the maternal right side, and is in vertex presentation. Largest amniotic fluid pocket: 4.5 cm; normal range is 2-8 cm. Placental position is posterior , without previa. heart rate: 140 beats per minute. FETUS B: Fetus is located on the maternal left side, and is in vertex presentation. Largest amniotic fluid pocket: 2.9 cm; normal range is 2-8 cm. Placental position is posterior , without previa. heart rate: 152 beats per minute. IMPRESSION: 1. Live dichorionic diamniotic twin redemonstrated. 2. Cervical length 2.6 cm. No funneling. Dictated by: Ulices Chandler M.D. on 10/27/2020 at 21:27 Approved by: Ulices Chandler M.D. on 10/27/2020 at 21:34
[2020-10-27 20:35] LABS: Appearance Urine UA SL CLOUDY; Bilirubin Urine UA NEGATIVE (NEGATIVE); Color Urine UA YELLOW; Glucose Urine UA NEGATIVE (Negative); Ketones Urine UA NEGATIVE (NEGATIVE); Leukocyte Esterase Urine UA 3+ (NEGATIVE); Nitrite Urine UA NEGATIVE (Negative); Occult Blood Urine UA TRACE-LYSED (Negative); Protein Urine UA NEGATIVE (Negative); Urobilinogen Urine UA 0.2 E.U./dL (0.2)
[2020-10-27 20:43] LABS: RBC Urine 0-1/HPF (0-5/HPF); Renal Epithelial Cells Urine 0-1/HPF (0-1/HPF); Squamous Epithelial Cell Urine 5-10 /HPF (0-5/HPF); WBC Urine 10-30/HPF (0-5/HPF)
[2020-10-27 20:44] LABS: Amorphous Sediment Urine 1+; Bacteria Urine Moderate (10-30); Culture Indicated Urine Specimen Cultured; Mucus Urine 1+ (Negative)
[2020-10-27] MEDS: LACTATED RINGERS 1,000 ML 1000 ML IV (21:31)
[2020-10-27] MEDS: CEFAZOLIN 2 GM/100 ML FROZ.PIGGY IV (21:31)
== END 2020-10-27 23:05 | disposition home or self-care (01) ==
LOC: LABOR 20:23
PROVIDERS: Admitting Provider Obstetrics & Gynecology; PCP Family Medicine; Referring Provider Obstetrics & Gynecology; Visit Provider Obstetrics & Gynecology
DX: O47.03 False labor before 37 completed weeks of gestation, third trimester (principal); O30.003 Twin pregnancy, unspecified number of placenta and unspecified number of amniotic sacs, third trimester; Z3A.33 33 weeks gestation of pregnancy
CPT/HCPCS: 59025; 59050; 76802; 76815; 81001; 87086; 96360; G0378; G0379; J0690

== ENCOUNTER 2020-10-28 12:35 | Outpatient (CLI) | payer OTHER, SELFPAY ==
--- NOTE | 2020-10-28 13:46 | P.TNLD_ITS ---
Visit Information Visit Information Date of evaluation: 10/28/20 Primary OB Provider: Jessica Patel On-call OB Provider: Camille Collado Reason for Evaluation: Yes rupture of membranes Comments/Additional reasons for admission: Patient is a 30 who is with twins at 34 weeks gestation. She came in today concerned that her water broke. She was sitting up in bed when she felt a small gush of fluid. She has not had continued leaking. No bleeding. Babies are active. She was just seen in triage yesterday for contractions which have subsided. She was given a dose of antibiotics for possible UTI and has a prescription to picking tech. Vital Signs Vital Signs: Temperature 97.5? blood pressure 124/78 heart rate 76 PFSH Medical History Anxiety (~2017) Broken hip (~2005) Chicken pox (~1995) Fractures On Accutane therapy Ovarian cyst (~2008) Pelvic fracture (~2008) Surgical History Anesthesia [place] teeth removed (~2010) Family History Father Hyperlipidemia Anxiety Mother Hypertension Stroke Migraine Grandfather Lung cancer Grandmother Diabetes mellitus Heart disease Grandmother Diabetes mellitus Grandfather No known health problems Family/Other Depression Suicide Family/Other Bipolar 1 disorder Family/Other Diabetes type 1, controlled Brother No known health problems Sister No known health problems Migraine Dense breast tissue on mammogram Social History marital status: household members: spouse lives independently: Yes pets and animals: Yes (X 1 Dog) education level: college 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 Diagnosis, Plan/Disposition Plan/Disposition Plan: AmniSure was negative. Patient reassured. NST reactive for both babies. She has an appointment with Dr. Patel. OB Disposition: home
== END 2020-10-28 13:45 | disposition home or self-care (01) ==
LOC: LABOR 12:59 → OB 10-29 16:48
PROVIDERS: PCP Family Medicine; Referring Provider Family Medicine; Visit Provider Family Medicine
DX: O30.003 Twin pregnancy, unspecified number of placenta and unspecified number of amniotic sacs, third trimester (principal); N89.8 Other specified noninflammatory disorders of vagina; Z3A.33 33 weeks gestation of pregnancy
CPT/HCPCS: 59025; 84112; G0378; G0379

== ENCOUNTER → 2020-11-02 15:18 | Outpatient (CLI) | payer OTHER, SELFPAY ==
[2020-11-03 18:39] LABS: Strep Grp B PCR NEG for Grp B Strep
== END ==
PROVIDERS: PCP Family Medicine; Visit Provider Family Medicine
DX: O30.042 Twin pregnancy, dichorionic/diamniotic, second trimester (principal); Z3A.36 36 weeks gestation of pregnancy
CPT/HCPCS: 87653

== ENCOUNTER 2020-11-02 15:45 | Outpatient (CLI) | payer OTHER, SELFPAY ==
--- NOTE | 2020-11-02 16:28 | P.TNLD_ITS ---
Visit Information Visit Information Date of evaluation: 11/02/20 Primary OB Provider: Jessica Patel Reason for Evaluation: Yes non-stress test non-stress test reason: other (twins) Comments/Additional reasons for admission: 30yo at 34w3d here for NST due to twin gestation. Mild cramping intermittently. [facility] Medical History Anxiety (~2017) Broken hip (~2005) Chicken pox (~1995) Fractures On Accutane therapy Ovarian cyst (~2008) Pelvic fracture (~2008) Surgical History Anesthesia [place] teeth removed (~2010) Family History Father Hyperlipidemia Anxiety Mother Hypertension Stroke Migraine Grandfather Lung cancer Grandmother Diabetes mellitus Heart disease Grandmother Diabetes mellitus Grandfather No known health problems Family/Other Depression Suicide Family/Other Bipolar 1 disorder Family/Other Diabetes type 1, controlled Brother No known health problems Sister No known health problems Migraine Dense breast tissue on mammogram Social History marital status: household members: spouse lives independently: Yes pets and animals: Yes (X 1 Dog) education level: college 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) current occupational exposures/hazards: No ([employer] - no exposure ) special bernardo needs: No Smoking Status: Never smoker second hand exposure: No alcohol intake: former (pre- : rare w/social interaction ) substance use type: does not use Evaluation Evaluation Baseline heart rate: 130 Variability: Moderate (11-25) monitor accelerations: Present monitor decelerations: Absent Category of Tracing: Reactive Comments: Baby B - baseline 130, moderate variability, accelerations present, no decels: reactive Diagnosis, Plan/Disposition Final Diagnosis (1) Twin : Status: Acute (2) 34 weeks gestation of : Status: Deleted Plan/Disposition Plan: 30yo at 34w3d here for NST for twin gestation. NSTs reactive for both. Stable for d/c home. Plan on twice weekly NST with weekly BPP. Pt will have next NST at [facility] on 10/05, plan for next BPP 10/12. OB Disposition: home
== END 2020-11-02 16:35 | disposition home or self-care (01) ==
LOC: LABOR 15:49 → OB 11-03 07:35
PROVIDERS: PCP Family Medicine; Referring Provider Family Medicine; Visit Provider Family Medicine
DX: O30.042 Twin pregnancy, dichorionic/diamniotic, second trimester (principal); Z3A.34 34 weeks gestation of pregnancy
CPT/HCPCS: 59025; 87653; G0378; G0379

== ENCOUNTER 2020-11-12 04:36 | Emergency (ER) | payer OTHER, SELFPAY ==
[2020-11-12] VITALS (24 sets, daily range): BP systolic 128–163; BP diastolic 63–93; PULSE 62–90; RESP 16–18; TEMP 36.6; O2SAT 92–99; BMI 27.6
--- NOTE | 2020-11-12 04:44 | ED.GENADULT ---
HPI - General Adult General Chief complaint: Seizure Stated complaint: Seizure Time Seen by Provider: 11/12/20 04:37 Source: patient Mode of arrival: EMS Limitations: no limitations History of Present Illness HPI narrative: Patient is a otherwise healthy 30-year-old female that is a G1 now P2 that is 3 days from a vaginal delivery at approximately 32 weeks EGA. Patient stated that she had a relatively uncomplicated . She was at a Maternal- medicine specialist appointment at the end of last week when during this visit it was found that she was having contractions and after further evaluation she was admitted to the hospital and subsequently delivered a healthy male and female infant. Patient states she did not have preeclampsia nor high blood pressure during her . She was discharged home approximately 12 hours ago. She is breast feeding with bottle supplementation. Is reported by both the patient and her mother who is at bedside that she was sitting in a chair approximately 45 minutes prior to arrival here in the emergency department feeding her daughter when she screamed out. The patient's came into the room and took the child from the patient and help the patient to the floor when she then had shaking like activity. Mother states that the entire event lasted approximately 5 minutes. The shaking episodes ended on their own. The patient was then reported to be very confused afterwards. EMS was called immediately. Patient did not have any loss of bowel or bladder. Patient reports that she remembers sitting in the chair feeding her daughter then the next thing that she remembers the paramedics being around her on the floor the nursery. There is no prior history of seizure. Related Data Home Medications Medication Instructions Recorded Confirmed doxylamine succinate 25 mg tablet 25 mg PO BEDTIME PRN 05/05/20 09/23/20 prenat.vits,chelle,fbf-yghs-lemou 1 tab PO DAILY 05/05/20 09/23/20 pyridoxine (vitamin B6) 25 mg 25 mg PO DAILY 05/05/20 09/23/20 tablet sertraline 50 mg tablet 50 mg PO DAILY 05/10/20 09/23/20 Previous Rx's Medication Instructions Recorded ondansetron 4 mg disintegrating 4 mg PO Q8H PRN #20 tab 06/11/20 tablet breast pump #1 ea 09/03/20 ferrous gluconate 256 mg (28 mg 256 mg PO DAILY #30 tab 11/02/20 iron) tablet Allergies Allergy/AdvReac Type Severity Reaction Status Date / Time No Known Drug Allergies Allergy Verified 09/23/20 09:25 Review of Systems Review of Systems Narrative: Provided by patient and mother Constitutional Constitutional: Denies chills, Denies fatigue, Denies fever(s) and Reports headache(s) Eyes Eyes: Denies change in vision ENT Ears, Nose, Mouth, and Throat: Denies vertigo, Denies dizziness, Denies otalgia, Reports headache(s) and Denies sore throat Cardiovascular Cardiovascular: Denies chest pain and Denies dyspnea Respiratory Respiratory: Denies dyspnea Gastrointestinal Gastrointestinal: Denies abdominal pain, Denies nausea and Denies vomiting Genitourinary Genitourinary: Denies dysuria Genitourinary: Denies dysuria and Reports vaginal discharge (Light vaginal discharge) Musculoskeletal Musculoskeletal: Denies arthralgias and Denies myalgias Comments: Generalized soreness Integumentary/Breasts Skin/Breast: Denies rash Neurologic Neurologic: Denies vertigo, Denies dizziness, Reports headache(s) and Reports seizure-like activity Psychiatric Psychiatric: Denies anxiety Endocrine Endocrine: Denies fatigue Hematologic/Lymphatic On Anticoagulants: No Allergic/Immunologic Allergic/Immunologic: Denies urticaria Patient History Medical History Anxiety (~2017) Broken hip (~2005) Chicken pox (~1995) Fractures On Accutane therapy Ovarian cyst (~2008) Pelvic fracture (~2008) Surgical History Anesthesia [place] teeth removed (~2010) Family History Father Hyperlipidemia Anxiety Mother Hypertension Stroke Migraine Grandfather Lung cancer Grandmother Diabetes mellitus Heart disease Grandmother Diabetes mellitus Grandfather No known health problems Family/Other Depression Suicide Family/Other Bipolar 1 disorder Family/Other Diabetes type 1, controlled Brother No known health problems Sister No known health problems Migraine Dense breast tissue on mammogram Social History marital status: household members: spouse lives independently: Yes pets and animals: Yes (X 1 Dog) education level: college 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) current occupational exposures/hazards: No ([employer] - no exposure ) special bernardo needs: No Smoking Status: Never smoker second hand exposure: No alcohol intake: former (pre- : rare w/social interaction ) substance use type: does not use Smoking Status: Never smoker Exam Initial Vital Signs Initial Vital Signs: Vital Signs Temperature 97.9 F 11/12/20 04:05 Pulse Rate 72 11/12/20 04:05 Respiratory Rate 18 11/12/20 04:05 Blood Pressure 134/85 11/12/20 04:05 Pulse Oximetry 98 11/12/20 04:05 Const General: cooperative, healthy appearing, comfortable, well developed and well groomed Limitations: mental status not altered HENMT Head: normal to inspection and normocephalic Ears: hearing grossly normal bilaterally Nose: external nose normal Eyes General: appearance normal, both eyes and all related structures Resp Effort & Inspection: normal respiratory effort Auscultation: clear to auscultation bilaterally Cardio Rate: regular rate Rhythm: regular rhythm GI Inspection: non-distended Palpation: soft and tender (Generalized tenderness) Skin Lesions: no lesions Rashes: no rashes Neuro General: patient alert, patient awake, moves all extremities, no meningeal signs and no focal motor deficits Cognition: normal cognition Speech: speech normal Motor: muscle tone normal throughout Sensory Exam: no sensory deficits noted Extrem General: normal to inspection, capillary refill normal and No edema Psych Appearance: grossly normal and well kempt Scores GCS [place] coma scale eye opening: Spontaneous [place] coma scale verbal response: Orientated [place] coma scale motor response: Obey commands [place] coma scale total score: 15 Course Orders Ordered: ED Orders 11/12/20 04:45 Basic Metabolic Panel Stat Complete Blood Count AUTO DIFF Stat Ethanol (ETOH) Stat Hepatic (Liver) Panel Stat Lactate Dehydrogenase Stat Lipase Stat Magnesium Stat Phosphorous Stat Prolactin Stat Thyroid Stimulating Hormone Stat Uric Acid Stat 11/12/20 04:51 Urinalysis and Microscopic Stat Urine Culture Stat 11/12/20 04:59 CT head/brain wo con Stat 11/12/20 06:04 CT angio head Stat 11/12/20 06:05 COVID19 Stat Partial Thromboplastin Time Stat Prothrombin Time INR Stat Sodium Chloride (Normal Saline 0.9%) 1,000 mls @ 125 mls/hr IV CONT EMMETT Magnesium Sulfate (Magnesium Sulfate) 2 gm in 50 mls @ 25 mls/hr IV NOW ONE Stop: 11/12/20 07:11 Last Admin: 11/12/20 05:27 Dose: 25 mls/hr Documented by: Discontinued Medications Magnesium Sulfate (Magnesium Sulfate) 2 gm in 50 mls @ 300 mls/hr IV NOW ONE Stop: 11/12/20 05:33 Last Infusion: 11/12/20 05:27 Dose: Infused Documented by: Levetiracetam 1,500 mg/ Sodium (Chloride) 115 mls @ 460 mls/hr IV NOW ONE Stop: 11/12/20 06:07 Last Admin: 11/12/20 06:38 Dose: 460 mls/hr Documented by: Vital Signs Vital signs: Vital Signs - 8 hr 11/12/20 04:05 11/12/20 05:09 11/12/20 05:10 Temperature 97.9 F Pulse Rate 72 73 75 Respiratory Rate 18 Blood Pressure 134/85 163/91 H 147/69 H Pulse Oximetry 98 96 96 11/12/20 05:14 11/12/20 05:20 11/12/20 05:28 Temperature Pulse Rate 85 90 83 Respiratory Rate Blood Pressure 130/63 137/70 139/74 Pulse Oximetry 95 99 97 11/12/20 05:29 11/12/20 05:30 Temperature Pulse Rate 82 Respiratory Rate Blood Pressure 138/80 Pulse Oximetry 97 Medical Decision Making Medical Records Medical records reviewed: Yes I reviewed the patient's medical records. Lab Data Lab results reviewed: Yes I reviewed the patient's lab results. Result diagrams: 11/12/20 04:45 11/12/20 04:45 Labs: Lab Results 11/12/20 11/12/20 11/12/20 Range/Units 04:45 04:45 04:45 WBC 14.5 H (4.5-11.0) X10^3/uL RBC 4.08 (4.0-5.2) X10^6/uL Hgb 11.7 L (12.0-16.0) g/dL Hct 35.1 L (36-46) % MCV 85.9 (80-100) fL MCH 28.6 (26-34) PG MCHC 33.3 (30-36) % RDW 13.1 (11.6-14.8) % Plt Count 389 (150-400) X10^3/uL Neut % (Auto) 76.2 H (50-75) % Lymph % (Auto) 15.0 L (25-40) % [place] % (Auto) 5.3 (3-14) % Eos % (Auto) 3.0 (2-4) % Baso % (Auto) 0.5 (0-2) % Neut # (Auto) 43712 H (7455-5701) /uL Lymph # (Auto) 2200 (7353-4781) /uL [place] # (Auto) 800 (0-900) /uL Eos # (Auto) 400 (0-450) /uL Baso # (Auto) 100 (0-100) /uL PT (10.1-12.7) SECONDS INR (0.9-1.3) APTT (26.4-36.2) SECONDS Sodium 136 L (137-145) mmol/L Potassium 4.2 (3.4-5.1) mmol/L Chloride 104 (98-107) mmol/L Carbon Dioxide 27 (22-32) mmol/L BUN 7 (7-17) mg/dL Creatinine 0.48 L (0.52-1.04) mg/dL Estimated GFR > 60.0 (>60) mL/min BUN/Creatinine Ratio 14.6 (6-22) Glucose 96 (70-100) mg/dL Uric Acid (2.5-6.2) mg/dL Calcium 8.9 (8.4-10.2) mg/dL Phosphorus (2.5-4.5) mg/dL Magnesium (1.6-2.3) mg/dL Total Bilirubin 0.4 (0.2-1.3) mg/dL Conjugated Bilirubin 0.0 (0.0-0.3) md/dL Unconjugated Bilirubin 0.3 (0.0-1.1) mg/dL AST 73 H (14-36) IU/L ALT 75 H (<35) IU/L Alkaline Phosphatase 188 H (38-126) U/L Lactate Dehydrogenase 662 H (313-618) U/L Total Protein 6.5 (6.3-8.2) g/dL Albumin 3.5 (3.5-5.0) g/dL Globulin 3.0 (1.7-4.1) g/dL Albumin/Globulin Ratio 1.2 (1.0-2.8) Lipase (23-300) U/L TSH (0.47-4.68) uIU/mL Prolactin (3.0-18.6) ng/mL Urine Color Urine Appearance Urine pH (4.5-8.0) Ur Specific [place] (1.000-1.035) Urine Protein (Negative) Urine Glucose (UA) (Negative) g/dL Urine Ketones (NEGATIVE) Urine Occult Blood (Negative) Urine Nitrate (Negative) Urine Bilirubin (NEGATIVE) Urine Urobilinogen (0.2) E.U./dL Ur Leukocyte Esterase (NEGATIVE) Urine RBC (0-5/HPF) Urine WBC (0-5/HPF) Ur Squamous Epith Cells (0-5/HPF) Urine Bacteria (None) Ur Culture Indicated? Ethyl Alcohol < 10 ( - 10) mg/dL SARS-CoV-2 (PCR) (Negative) 11/12/20 11/12/20 11/12/20 Range/Units 04:45 04:45 04:45 WBC (4.5-11.0) X10^3/uL RBC (4.0-5.2) X10^6/uL Hgb (12.0-16.0) g/dL Hct (36-46) % MCV (80-100) fL MCH (26-34) PG MCHC (30-36) % RDW (11.6-14.8) % Plt Count (150-400) X10^3/uL Neut % (Auto) (50-75) % Lymph % (Auto) (25-40) % [place] % (Auto) (3-14) % Eos % (Auto) (2-4) % Baso % (Auto) (0-2) % Neut # (Auto) (5275-5459) /uL Lymph # (Auto) (1734-7805) /uL [place] # (Auto) (0-900) /uL Eos # (Auto) (0-450) /uL Baso # (Auto) (0-100) /uL PT 10.5 (10.1-12.7) SECONDS INR 0.9 (0.9-1.3) APTT 26 L (26.4-36.2) SECONDS Sodium (137-145) mmol/L Potassium (3.4-5.1) mmol/L Chloride (98-107) mmol/L Carbon Dioxide (22-32) mmol/L BUN (7-17) mg/dL Creatinine (0.52-1.04) mg/dL Estimated GFR (>60) mL/min BUN/Creatinine Ratio (6-22) Glucose (70-100) mg/dL Uric Acid 6.9 H (2.5-6.2) mg/dL Calcium (8.4-10.2) mg/dL Phosphorus 2.4 L (2.5-4.5) mg/dL Magnesium 3.2 H (1.6-2.3) mg/dL Total Bilirubin (0.2-1.3) mg/dL Conjugated Bilirubin (0.0-0.3) md/dL Unconjugated Bilirubin (0.0-1.1) mg/dL AST (14-36) IU/L ALT (<35) IU/L Alkaline Phosphatase (38-126) U/L Lactate Dehydrogenase (313-618) U/L Total Protein (6.3-8.2) g/dL Albumin (3.5-5.0) g/dL Globulin (1.7-4.1) g/dL Albumin/Globulin Ratio (1.0-2.8) Lipase 73 (23-300) U/L TSH 3.04 (0.47-4.68) uIU/mL Prolactin 262.7 H (3.0-18.6) ng/mL Urine Color Urine Appearance Urine pH (4.5-8.0) Ur Specific [place] (1.000-1.035) Urine Protein (Negative) Urine Glucose (UA) (Negative) g/dL Urine Ketones (NEGATIVE) Urine Occult Blood (Negative) Urine Nitrate (Negative) Urine Bilirubin (NEGATIVE) Urine Urobilinogen (0.2) E.U./dL Ur Leukocyte Esterase (NEGATIVE) Urine RBC (0-5/HPF) Urine WBC (0-5/HPF) Ur Squamous Epith Cells (0-5/HPF) Urine Bacteria (None) Ur Culture Indicated? Ethyl Alcohol ( - 10) mg/dL SARS-CoV-2 (PCR) (Negative) 11/12/20 11/12/20 Range/Units 04:51 05:50 WBC (4.5-11.0) X10^3/uL RBC (4.0-5.2) X10^6/uL Hgb (12.0-16.0) g/dL Hct (36-46) % MCV (80-100) fL MCH (26-34) PG MCHC (30-36) % RDW (11.6-14.8) % Plt Count (150-400) X10^3/uL Neut % (Auto) (50-75) % Lymph % (Auto) (25-40) % [place] % (Auto) (3-14) % Eos % (Auto) (2-4) % Baso % (Auto) (0-2) % Neut # (Auto) (5760-1265) /uL Lymph # (Auto) (4897-1571) /uL [place] # (Auto) (0-900) /uL Eos # (Auto) (0-450) /uL Baso # (Auto) (0-100) /uL PT (10.1-12.7) SECONDS INR (0.9-1.3) APTT (26.4-36.2) SECONDS Sodium (137-145) mmol/L Potassium (3.4-5.1) mmol/L Chloride (98-107) mmol/L Carbon Dioxide (22-32) mmol/L BUN (7-17) mg/dL Creatinine (0.52-1.04) mg/dL Estimated GFR (>60) mL/min BUN/Creatinine Ratio (6-22) Glucose (70-100) mg/dL Uric Acid (2.5-6.2) mg/dL Calcium (8.4-10.2) mg/dL Phosphorus (2.5-4.5) mg/dL Magnesium (1.6-2.3) mg/dL Total Bilirubin (0.2-1.3) mg/dL Conjugated Bilirubin (0.0-0.3) md/dL Unconjugated Bilirubin (0.0-1.1) mg/dL AST (14-36) IU/L ALT (<35) IU/L Alkaline Phosphatase (38-126) U/L Lactate Dehydrogenase (313-618) U/L Total Protein (6.3-8.2) g/dL Albumin (3.5-5.0) g/dL Globulin (1.7-4.1) g/dL Albumin/Globulin Ratio (1.0-2.8) Lipase (23-300) U/L TSH (0.47-4.68) uIU/mL Prolactin (3.0-18.6) ng/mL Urine Color Yellow Urine Appearance Clear Urine pH 7.5 (4.5-8.0) Ur Specific [place] 1.020 (1.000-1.035) Urine Protein Negative (Negative) Urine Glucose (UA) Negative (Negative) g/dL Urine Ketones Negative (NEGATIVE) Urine Occult Blood 3+ H (Negative) Urine Nitrate Negative (Negative) Urine Bilirubin Negative (NEGATIVE) Urine Urobilinogen 0.2 (0.2) E.U./dL Ur Leukocyte Esterase Trace H (NEGATIVE) Urine RBC 5-10/hpf H (0-5/HPF) Urine WBC 0-1/hpf (0-5/HPF) Ur Squamous Epith Cells 0-1 /hpf (0-5/HPF) Urine Bacteria Occasional (0-1) D (None) Ur Culture Indicated? Specimen cultured Ethyl Alcohol ( - 10) mg/dL SARS-CoV-2 (PCR) Negative (Negative) Imaging Data CT scan - head: Radiologist's Impression: Preliminary read by radiology states acute right frontal lobe hemorrhage. CTA head: Radiologist's Impression: Preliminary read Small tingling vessels medial to the right frontal lobe hemorrhage suspicious for underlying vascular malformation. [facility] Narrative Medical decision making narrative: Patient is 3 days . EMS gave her 4 mg of magnesium IV and Zofran prior to arrival secondary to the seizure in the concern for eclampsia. Upon arrival patient was not hypertensive. Has a leukocytosis however no signs of an infection. This is most likely secondary to being and also the seizure-like activity. She is afebrile. While we were waiting for labs and the CT scan patient had another generalized tonic-clonic seizure here in the emergency department. This lasted less than 1 minute and did resolve on its own however she was given 2 mg of Ativan and another 2 mg bolus of magnesium. She had a systolic blood pressure in the 160s immediately after the seizure however this improved with time. Other than having a witnessed seizure and being somewhat confused afterwards she has no other focal neurologic deficits. A non-con head CT showed a right sided intracerebral hemorrhage. I discussed the case with Dr. Rivas with Neurology at [facility] who asked that we obtain a CTA of the brain. This was done and there is concern about a tangle of vessels just medial to the bleed. Given the finding of the bleed on the head CT I of less concerned about Eclampsia so the magnesium was stopped. Patient was given 1500 mg of Keppra per Neurology recommendation. I discussed the findings of the CT scan with the patient and her mother who is at bedside. Will transfer the patient to [facility] for further evaluation and treatment. Patient is currently stable for transfer. Critical Care Time Critical Care Time Critical Care Time: Yes Total Critical Care Time: 45 Attestation: The high probability of a clinically significant, sudden or life threatening deterioration of the neurologic system(s) required my full and direct attention, intervention and personal management. The aggregate critical care time was 45 minutes. This time is in addition to time spent performing reported procedures but includes the following: [X] Data Review and interpretation [X] Patient assessment and monitoring of vital signs [X] Documentation [X] Medication orders and management Discharge Plan Departure Patient Disposition: [facility] Clinical Impression: Acute intracerebral hemorrhage, Seizure Prescriptions: No Action sertraline 50 mg tablet 50 mg PO DAILY RF: 0 (DME) breast pump Device See Rx Instructions .ROUTE .MEDSUPPLY Qty: 1 RF: 0 ondansetron 4 mg tablet,disintegrating 4 mg PO Q8H PRN (Reason: nausea and vomiting) Qty: 20 RF: 0 ferrous gluconate 256 mg (28 mg iron) tablet 256 mg PO DAILY Qty: 30 RF: 0 Unisom (doxylamine) 25 mg tablet 25 mg PO BEDTIME PRNRF: 0 pyridoxine (vitamin B6) 25 mg tablet 25 mg PO DAILY RF: 0 prenat.vits,chelle,yvo-xatc-mkdxn Tablet 1 tab PO DAILY RF: 0 Referrals: Pedrito Narvaez DO [Primary Care Provider] -
[2020-11-12 04:56] LABS: Add Manual Diff / Slide Review NO; Basophils Absolute Auto 100 /uL (0-100); Basophils Percent Auto 0.5 % (0-2); Eosinophils Absolute Auto 400 /uL (0-450); Hematocrit 35.1 % (36-46); Hemoglobin 11.7 g/dL (12.0-16.0); Lymphocytes Absolute Auto 2200 /uL (1100-4500); Mean Corpuscular HGB Conc 33.3 % (30-36); Mean Corpuscular Hemoglobin 28.6 PG (26-34); Mean Corpuscular Volume 85.9 fL (80-100); Monocytes Absolute Auto 800 /uL (0-900); Monocytes Percent Auto 5.3 % (3-14); Neutrophils Absolute Auto 11000 /uL (1500-7000); Neutrophils Percent Auto 76.2 % (50-75); Platelet Count 389 X10^3/uL (150-400); Red Blood Cell Count 4.08 X10^6/uL (4.0-5.2); Red Cell Distribution Width 13.1 % (11.6-14.8); White Blood Cell Count 14.5 X10^3/uL (4.5-11.0)
[2020-11-12 04:57] LABS: Appearance Urine UA CLEAR; Bilirubin Urine UA NEGATIVE (NEGATIVE); Color Urine UA YELLOW; Glucose Urine UA NEGATIVE (Negative); Ketones Urine UA NEGATIVE (NEGATIVE); Leukocyte Esterase Urine UA TRACE (NEGATIVE); Nitrite Urine UA NEGATIVE (Negative); Occult Blood Urine UA 3+ (Negative); Protein Urine UA NEGATIVE (Negative); Urobilinogen Urine UA 0.2 E.U./dL (0.2)
--- NOTE | 2020-11-12 04:59 | DI.CT.S_ITS ---
PROCEDURE: CT HEAD/BRAIN WO CON INDICATIONS: new onset seizure TECHNIQUE: Noncontrast 4.5 mm thick angled axial sections acquired from the foramen magnum to the vertex, with coronal and sagittal reformats. For radiation dose reduction, the following was used: automated exposure control, adjustment of mA and/or kV according to patient size. COMPARISON: None. FINDINGS: Image quality: Excellent. CSF spaces: Basal cisterns are patent. No extra-axial fluid collections. Ventricles are normal in size and shape. Brain: 2.3 centimeter in diameter acute parenchymal bleed noted in the right frontal lobe. The right frontal parenchymal hematoma surrounded by mild cytotoxic edema. There is local mass effect, but no midline shift. [place]-white matter interface is normal. Skull and face: Calvarium and visualized facial bones are intact, without suspicious lesions. Sinuses: Visualized sinuses and mastoids are clear. IMPRESSION: Acute right frontal lobe parenchymal hemorrhage. Dictated by: Rowena Crooks MD, PhD on 11/12/2020 at 7:14 Approved by: Rowena Crooks MD, PhD on 11/12/2020 at 7:16
[2020-11-12 05:01] LABS: pH Urine UA 7.5 (4.5-8.0)
[2020-11-12 05:03] LABS: RBC Urine 5-10/HPF (0-5/HPF); WBC Urine 0-1/HPF (0-5/HPF)
[2020-11-12 05:04] LABS: Bacteria Urine Occasional (0-1); Culture Indicated Urine Specimen Cultured; Squamous Epithelial Cell Urine 0-1 /HPF (0-5/HPF)
[2020-11-12 05:07] LABS: Alanine Aminotransferase 75 IU/L (<35); Albumin 3.5 g/dL (3.5-5.0); Albumin Globulin Ratio 1.2 (1.0-2.8); Alkaline Phosphatase 188 U/L (38-126); Aspartate Aminotransferase 73 IU/L (14-36); BUN Creatinine Ratio 14.6 (6-22); Bilirubin Total 0.4 mg/dL (0.2-1.3); Bilirubin Unconjugated 0.3 mg/dL (0.0-1.1); Blood Urea Nitrogen 7 mg/dL (7-17); Calcium 8.9 mg/dL (8.4-10.2); Carbon Dioxide 27 mmol/L (22-32); Chloride 104 mmol/L (98-107); Estimated Glomerular Filt Rate > 60.0 mL/min (>60); Ethanol (ETOH) < 10 mg/dL; Glucose 96 mg/dL (70-100); HEMOLYSIS 43 (0-50); Lactate Dehydrogenase 662 U/L (313-618); Potassium 4.2 mmol/L (3.4-5.1); Sodium 136 mmol/L (137-145); Total Protein 6.5 g/dL (6.3-8.2)
[2020-11-12 05:08] LABS: Lipase 73 U/L (23-300); Magnesium 3.2 mg/dL (1.6-2.3); Phosphorous 2.4 mg/dL (2.5-4.5); Uric Acid 6.9 mg/dL (2.5-6.2)
[2020-11-12] MEDS: LORazepam 2 MG/ML INJ (05:14)
--- NOTE | 2020-11-12 05:15 | PC.NURSE ---
Pt yelled out and mom came running out of room. Nurses into room. Eyes open wide and pt staring straight ahead, immediately after her neck extended back and to the right, arms flexed to her chest. Provider into room, new orders received. Placed on non-rebreather, medicated with ativan and magnesium as per verbal orders.
[2020-11-12 05:23] LABS: Prolactin 262.7 ng/mL (3.0-18.6)
[2020-11-12] MEDS: MAGNESIUM SULFATE 2 GM/50 ML PIGGYBACK IV ×2 (05:25→05:27)
[2020-11-12 05:38] LABS: Thyroid Stimulating Hormone 3.04 uIU/mL (0.47-4.68)
--- NOTE | 2020-11-12 06:04 | DI.CT.S_ITS ---
PROCEDURE: CT ANGIO HEAD INDICATIONS: Hemorrhage, CT recommended by neurology TECHNIQUE: Precontrast 4.5 mm thick angled axial sections acquired from the foramen magnum to the vertex. After the administration of intravenous contrast, 1 mm thick sections acquired through the [place] of Zaidi. Postcontrast 4.5 mm thick sections then re-acquired from the foramen magnum to the vertex. 10 mm thick lcqimka-hxvkivjjz-dyertwztup (MIP) reformats were acquired of the central intracranial vasculature. For radiation dose reduction, the following was used: automated exposure control, adjustment of mA and/or kV according to patient size. COMPARISON: [facility], CT, CT HEAD/BRAIN WO CON, 11/12/2020, 5:05. FINDINGS: Image quality: Excellent. Anterior circulation: Intracranial internal carotid arteries are normal in size and flow. The flow within the paired anterior cerebral arteries is normal and symmetric. The flow within the middle cerebral arteries is normal and symmetric. The anterior communicating artery is seen. Small tangle of vessels with central nidus measuring approximately 1.0 x 0.8 x 0.8 centimeters noted in the deep right frontal lobe medial to acute right frontal parenchymal bleed. Posterior circulation: Visualized portions of the vertebral arteries demonstrate normal caliber, and join to form a normal appearing basilar artery. Flow within the posterior cerebral arteries is normal and symmetric. No aneurysms are seen. Dural sinuses demonstrate normal postcontrast enhancement. CSF spaces: Ventricles are normal in size and shape. Basal cisterns are patent. No extra-axial fluid collections. Brain: No midline shift. No intracranial bleeds or masses. [place]-white matter interface appears intact. Skull and face: Calvarium and facial bones appear intact, without suspicious lesions. Sinuses: Visualized sinuses and mastoids are clear. IMPRESSION: 1. 1.0 x 0.8 x 0.8 centimeter tangle of vessels in the right frontal lobe suspicious for arterial venous malformation. Recommend neurosurgical consultation. 2. Right frontal acute parenchymal hemorrhage stable compared to prior CT scan of the head. Dictated by: Rowena Crooks MD, PhD on 11/12/2020 at 7:38 Approved by: Rowena Crooks MD, PhD on 11/12/2020 at 7:43
[2020-11-12 06:13] LABS: INR 0.9 (0.9-1.3); Prothrombin Time 10.5 SECONDS (10.1-12.7)
[2020-11-12 06:16] LABS: PTT Partial Thromboplastin Tim 26 SECONDS (26.4-36.2)
[2020-11-12 06:25] LABS: COVID19 -Nasal RAPID Negative (Negative)
[2020-11-12] MEDS: levETIRAcetam 1,500 MG in SODIUM CHLORIDE 0.9% 100 ML 460 ML IV (06:38)
== END 2020-11-12 07:34 | disposition short-term general hospital (02) ==
LOC: ED 06:10
PROVIDERS: Emergency Provider Emergency Medicine; PCP Family Medicine
DX: I61.9 Nontraumatic intracerebral hemorrhage, unspecified (principal); O15.2 Eclampsia complicating the puerperium; R51.9 Headache, unspecified; Z20.822 Contact with and (suspected) exposure to COVID-19; D72.829 Elevated white blood cell count, unspecified
CPT/HCPCS: 70450; 70496; 80048; 80076; 80320; 81001; 83615; 83690; 83735; 84100; 84146; 84443; 84550; 85025; 85610; 85730; 87086; 87635; 96365; 99284; 99291; C9803; J1953; J2060; J3475; Q9967

== ENCOUNTER → 2020-12-14 11:27 | Outpatient (CLI) | payer OTHER, SELFPAY ==
--- NOTE | 2020-12-14 11:30 | DI.CT.S_ITS ---
PROCEDURE: CT HEAD/BRAIN WO CON INDICATIONS: Arteriovenous malformation of cerebral vessels TECHNIQUE: Noncontrast 4.5 mm thick angled axial sections acquired from the foramen magnum to the vertex, with coronal and sagittal reformats. For radiation dose reduction, the following was used: automated exposure control, adjustment of mA and/or kV according to patient size. COMPARISON: [facility], CT, CT ANGIO HEAD, 11/12/2020, 6:07. [facility], CT, CT HEAD/BRAIN WO CON, 11/12/2020, 5:05. FINDINGS: Image quality: Excellent. CSF spaces: Basal cisterns are patent. No extra-axial fluid collections. Ventricles are normal in size and shape. Brain: No midline shift. No intracranial masses or hemorrhage. [place]-white matter interface is normal. 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 visualized facial bones are intact, without suspicious lesions. Sinuses: Visualized sinuses and mastoids are clear. IMPRESSION: No acute intracranial disease process. Postsurgical changes. Dictated by: Rowena Crooks MD, PhD on 12/14/2020 at 12:01 Approved by: Rowena Crooks MD, PhD on 12/14/2020 at 12:06
== END ==
PROVIDERS: PCP Family Medicine; Referring Provider Neurological Surgery; Visit Provider Neurological Surgery
DX: Q28.2 Arteriovenous malformation of cerebral vessels (principal)
CPT/HCPCS: 70450

== ENCOUNTER → 2021-02-09 15:57 | Outpatient (CLI) | payer OTHER, SELFPAY ==
[2021-02-09 20:28] LABS: Urine N gonorrhoeae NOT DETECTED
[2021-02-09 20:29] LABS: Urine Chlamydia NOT DETECTED
== END ==
PROVIDERS: PCP Family Medicine; Visit Provider Family Medicine
DX: Z11.3 Encounter for screening for infections with a predominantly sexual mode of transmission (principal)
CPT/HCPCS: 87491; 87591

== ENCOUNTER → 2021-08-15 10:21 | Outpatient (CLI) | payer OTHER, SELFPAY ==
[2021-08-15 11:10] LABS: COVID19 -Nasal RAPID Negative (Negative)
== END ==
PROVIDERS: PCP Family Medicine; Visit Provider Family Medicine
DX: Z20.822 Contact with and (suspected) exposure to COVID-19 (principal)
CPT/HCPCS: 87635

== ENCOUNTER → 2021-11-07 15:57 | Outpatient (CLI) | payer OTHER, SELFPAY ==
[2021-11-07 19:31] LABS: COVID-19 CEPHEID PCR (VTM/NP) Negative (Negative)
== END ==
PROVIDERS: PCP Family Medicine; Visit Provider Family Medicine Sleep Medicine
DX: Z20.822 Contact with and (suspected) exposure to COVID-19 (principal)
CPT/HCPCS: C9803; U0003; U0005

== ENCOUNTER → 2022-02-01 10:26 | Outpatient (CLI) | payer OTHER, SELFPAY ==
[2022-02-01 11:39] LABS: Influenza A - CEPHEID Flu A NEGATIVE (NEGATIVE); Influenza B - CEPHEID Flu B NEGATIVE (NEGATIVE)
[2022-02-01 12:55] LABS: COVID-19 CEPHEID PCR (VTM/NP) Negative (Negative)
== END ==
PROVIDERS: PCP Family Medicine; Visit Provider Physician Assistant
DX: J02.9 Acute pharyngitis, unspecified (principal); R05.9 Cough, unspecified; R51.9 Headache, unspecified
CPT/HCPCS: 0240U; 87070

== ENCOUNTER → 2023-12-06 19:46 | Outpatient (CLI) | payer OTHER, SELFPAY ==
--- NOTE | 2023-12-06 20:00 | DI.MRI.S_ITS ---
PROCEDURE: MR HEAD/BRAIN WO CON INDICATIONS: head aches TECHNIQUE: Noncontrast axial T1 spin echo, axial T2 fast spin echo, sagittal and axial FLAIR, coronal T2 fast spin echo, axial gradient echo, axial diffusion and ADC through the brain. COMPARISON: CT, CT HEAD/BRAIN WO CON, 12/14/2020, 11:38. CT, CT ANGIO HEAD, 11/12/2020, 6:07. CT, CT HEAD/BRAIN WO CON, 11/12/2020, 5:05. FINDINGS: Image quality: Excellent. CSF Spaces: Basal cisterns are patent. No extra-axial fluid collections. Ventricles are normal in size and shape. Brain: No intracranial masses or hemorrhage. [place]/white matter interface is normal. Brainstem appears normal. Diffusion-weighted images demonstrate no acute infarct. No chronic ischemic insults. Normal intravascular flow voids are present. 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 Correlate to prior surgical intervention. Skull and face: Calvarium has normal marrow signal. Orbits appear normal. Sinuses: Sinuses and mastoids are clear. 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 Recommend correlation to prior surgical intervention. No acute intracranial process. Dictated by: Harriet Robin M.D. on 12/07/2023 at 15:18 Approved by: Harriet Robin M.D. on 12/07/2023 at 15:21
== END ==
LOC: MRI 19:47
PROVIDERS: PCP Family Medicine; Referring Provider Family Medicine; Visit Provider Family Medicine
DX: I61.5 Nontraumatic intracerebral hemorrhage, intraventricular (principal); Q28.2 Arteriovenous malformation of cerebral vessels; R51.9 Headache, unspecified; G89.29 Other chronic pain
CPT/HCPCS: 70551